=== PATIENT | female | born 1975 | race Caucasian/White ===

== ENCOUNTER → 2016-07-12 | Outpatient (CLI) | payer BC, OTHER | END | disposition home or self-care (01) | CPT/HCPCS: 97804 ==

== ENCOUNTER → 2016-07-28 | Outpatient (CLI) | payer BC, OTHER ==
[2016-07-28 16:10] VITALS: BP 149/87; PULSE 88; RESP 16; TEMP 98.4; BMI 44.5
--- NOTE | 2016-08-08 13:27 | P.PN ---
Progress Note - Text DATE OF SERVICE: 07/28/2016 CHIEF COMPLAINT: Bariatric assessment. HISTORY OF PRESENT ILLNESS: Marci Singh is a very pleasant 41-year-old female who presents to the bariatric program initially in April 2016. She has undergone a complete bariatric assessment whereby she has completed a psych assessment and was clear for understanding the rigors of bariatric surgery. Separately she comes in with severe gastroesophageal reflux disease for which she is looking for surgical alternatives. She reports a personal history of multiple DVTs of blood clots. She is not; however, on blood thinner. Main concerns also include having a previous ventral hernia as well as a hysterectomy. Her main concerns at this time includes getting a Jorden-en-Y gastric bypass. At a height of 5 feet 4 inches, her ideal body weight 144 pounds. Her highest weight has been 265 pounds. Today she comes in weighing 259 pounds. She maintained a 6-pound weight loss in possibly 3 going on 4 months. Her body mass index has reduced from 44.9 down to 43.9. PAST MEDICAL HISTORY: 1. Bilateral deep venous thrombosis. 2. Hypertension. 3. Osteoarthritis of the bilateral hips. 4. Morbid obesity. 5. Postoperative nausea and vomiting. PAST SURGICAL HISTORY: 1. Hysterectomy. 2. Bladder suspension. 3. Left elbow surgery. 4. Tonsillectomy. MEDICATIONS: 1. Omeprazole. 2. Adderall. ALLERGIES: CODEINE. SOCIAL HISTORY: Former tobacco use. FAMILY HISTORY: Denies any esophageal, stomach cancer. REVIEW OF SYSTEMS: CONSTITUTIONAL: [place] body weight of 144 pounds. Highest weight of 278 pounds. She is at present 115 pounds overweight. Body mass index is reduced from 47.8 down to 44.5. HEENT: No troubles with vision or hearing. No reports of dysphagia. ENDOCRINE: No reports of active diabetes or thyroid disorder. RESPIRATORY: She denies any dyspnea on exertion. No reports of asthma. She has narcolepsy including potential sleep apnea syndrome. CARDIOVASCULAR: She has hypertension. No reports of chest pain or heart attack. GASTROINTESTINAL: No reports of dumping syndrome. No reports of fatty food intolerance. Has severe gastroesophageal reflux disease. MUSCULOSKELETAL: Has osteoarthritis of the hips. Also no reports of bilateral lower extremity edema. NEURO: No reports of stroke or seizure disorders. PSYCH: No reports of depression or suicidal ideation. HEMATOLOGIC: Has a personal history of bilateral DVTs in the past. No reports of easy bruising or bleeding. PHYSICAL EXAM: VITAL SIGNS: 98.4, 88, 16, 149/87; 5 feet 4 inches; 259 pounds. Body mass index 44.9. GENERAL: Well-developed female in no acute distress. HEENT: No scleral icterus. Extraocular movements grossly intact. Moist buccal mucosa. NECK: Supple without lymphadenopathy. CHEST: Nonlabored respirations. Equal bilateral excursions. CARDIOVASCULAR: Regular rate and rhythm. ABDOMEN: Soft protuberant, soft, nontender, nondistended. MUSCULOSKELETAL: No clubbing, cyanosis, or edema. NEURO: No focal or lateralizing signs. Cranial nerves II through XII grossly within normal limits. PSYCH: Appropriate affect. Alert and oriented to person, place, and time. ASSESSMENT: 1. Morbid obesity due to excess calories. 2. Body mass index reduced from 47.8 down to 44.6. 3. Dietary surveillance and counseling. 4. Gastroesophageal reflux disease. 5. Hypertensive heart disease without heart failure. 6. Osteoarthritis of the bilateral hips. 7. Personal history of bilateral deep venous thromboses. 8. Narcolepsy with sleep syndrome. 9. Obstructive sleep apnea. 10. Hypertriglyceridemia. 11. Hypercholesterolemia. 12. Vitamin D deficiency. PLAN: 1. An 8-page bariatric consent form was reviewed in detail regarding benefits and risks of Jorden-en-Y gastric bypass. 2. Increased risk for blood clots including DVTs were also reviewed. She will likely need post discharge Lovenox and alternative as well. 3. She reports not seeing a admissions clinician for which inpatient consultation may be a benefit. 4. Antibiotic prophylaxis. 5. Inpatient hospitalization anticipated for approximately 2 nights. 6. Dietary guidelines including a 2-week high protein, low caloric diet was also reviewed in detail for which she demonstrated an understanding.
== END | disposition home or self-care (01) ==
LOC: BARWHC3 14:57
PROVIDERS: ATTEND Surgery Plastic and Reconstructive Surgery
DX: Z01.818 Encounter for other preprocedural examination (principal); E66.01 Morbid (severe) obesity due to excess calories; Z79.899 Other long term (current) drug therapy; Z88.6 Allergy status to analgesic agent; Z72.0 Tobacco use; K21.9 Gastro-esophageal reflux disease without esophagitis; Z68.41 Body mass index [BMI] 40.0-44.9, adult; I11.9 Hypertensive heart disease without heart failure; M16.0 Bilateral primary osteoarthritis of hip; G47.8 Other sleep disorders; G47.33 Obstructive sleep apnea (adult) (pediatric); E78.1 Pure hyperglyceridemia; E78.00 Pure hypercholesterolemia, unspecified; E55.9 Vitamin D deficiency, unspecified; Z86.718 Personal history of other venous thrombosis and embolism
CPT/HCPCS: 99211

== ENCOUNTER → 2016-07-29 | Outpatient (CLI) | payer BC, OTHER ==
[2016-07-29 16:34] LABS: Basophils # (A) 0.1 k/uL (0-0.2); Basophils % (A) 1 %; CH 28.3; CHCM 33.3; Eosinophils # (A) 0.4 k/uL (0-0.7); Eosinophils % (A) 4 %; HCT 44.1 % (34.0-46.0); HDW 2.77; Luc # (Auto) 0.26; Luc % (Auto) 3; Lymphocytes # (A) 1.4 k/uL (1.0-4.8); Lymphocytes % (A) 14 %; MCHC 31.7 g/dL (31.0-37.0); MCV 85.4 fL (80.0-100.0); Mean Platelet Volume 6.8; Monocytes # (A) 0.6 k/uL (0-1.0); Monocytes % (A) 5 %; Neutrophils # (A) 7.6 k/uL (1.3-7.7); Neutrophils % (A) 73 %; RBC 5.17 m/uL (3.80-5.40); RDW 13.6 % (11.5-15.5); WBC 10.3 k/uL (3.8-10.6); WBC (Perox) 11.06
[2016-07-29 16:50] LABS: ALT 33 U/L (9-52); AST 22 U/L (14-36); Alkaline Phosphatase 88 U/L (38-126); Anion Gap 12 mmol/L; Blood Urea Nitrogen 14 mg/dL (7-17); Calcium 9.2 mg/dL (8.4-10.2); Carbon Dioxide 27 mmol/L (22-30); Chloride 103 mmol/L (98-107); Glucose 88 mg/dL (74-99); Non-African American GFR(MDRD) >60 (>60 ml/min/1.73 sqM); Sodium 142 mmol/L (137-145); Total Bilirubin 0.9 mg/dL (0.2-1.3)
== END | disposition home or self-care (01) ==
LOC: LABWHC1 16:06
PROVIDERS: ATTEND Surgery Plastic and Reconstructive Surgery
DX: Z01.812 Encounter for preprocedural laboratory examination (principal)
CPT/HCPCS: 36415; 80053; 85025

== ENCOUNTER 2016-08-16 09:08 | Inpatient (IN) | payer BC, OTHER ==
[2016-08-10 11:00] VITALS: BMI 43.4
--- NOTE | 2016-08-15 14:41 | P.GSHP ---
History of Present Illness H&P Date: 08/16/16 DATE OF SERVICE: 08/16/2016 CHIEF COMPLAINT: Bariatric assessment. HISTORY OF PRESENT ILLNESS: Marci Singh is a very pleasant 41-year-old female who presents to the bariatric program initially in April 2016. She has undergone a complete bariatric assessment whereby she has completed a psych assessment and was clear for understanding the rigors of bariatric surgery. Separately she comes in with severe gastroesophageal reflux disease for which she is looking for surgical alternatives. She reports a personal history of multiple DVTs of blood clots. She is not; however, on blood thinner. Main concerns also include having a previous ventral hernia as well as a hysterectomy. Her main concerns at this time includes getting a Jorden-en-Y gastric bypass. At a height of 5 feet 4 inches, her ideal body weight 144 pounds. Her highest weight has been 265 pounds. Today she comes in weighing 259 pounds. She maintained a 6-pound weight loss in possibly 3 going on 4 months. Her body mass index has reduced from 44.9 down to 43.9. PAST MEDICAL HISTORY: 1. Bilateral deep venous thrombosis. 2. Hypertension. 3. Osteoarthritis of the bilateral hips. 4. Morbid obesity. 5. Postoperative nausea and vomiting. PAST SURGICAL HISTORY: 1. Hysterectomy. 2. Bladder suspension. 3. Left elbow surgery. 4. Tonsillectomy. MEDICATIONS: 1. Omeprazole. 2. Adderall. ALLERGIES: CODEINE. SOCIAL HISTORY: Former tobacco use. FAMILY HISTORY: Denies any esophageal, stomach cancer. REVIEW OF SYSTEMS: CONSTITUTIONAL: [place] body weight of 144 pounds. Highest weight of 278 pounds. She is at present 115 pounds overweight. Body mass index is reduced from 47.8 down to 44.5. HEENT: No troubles with vision or hearing. No reports of dysphagia. ENDOCRINE: No reports of active diabetes or thyroid disorder. RESPIRATORY: She denies any dyspnea on exertion. No reports of asthma. She has narcolepsy including potential sleep apnea syndrome. CARDIOVASCULAR: She has hypertension. No reports of chest pain or heart attack. GASTROINTESTINAL: No reports of dumping syndrome. No reports of fatty food intolerance. Has severe gastroesophageal reflux disease. MUSCULOSKELETAL: Has osteoarthritis of the hips. Also no reports of bilateral lower extremity edema. NEURO: No reports of stroke or seizure disorders. PSYCH: No reports of depression or suicidal ideation. HEMATOLOGIC: Has a personal history of bilateral DVTs in the past. No reports of easy bruising or bleeding. PHYSICAL EXAM: VITAL SIGNS: 98.4, 88, 16, 149/87; 5 feet 4 inches; 259 pounds. Body mass index 44.9. GENERAL: Well-developed female in no acute distress. HEENT: No scleral icterus. Extraocular movements grossly intact. Moist buccal mucosa. NECK: Supple without lymphadenopathy. CHEST: Nonlabored respirations. Equal bilateral excursions. CARDIOVASCULAR: Regular rate and rhythm. ABDOMEN: Soft protuberant, soft, nontender, nondistended. MUSCULOSKELETAL: No clubbing, cyanosis, or edema. NEURO: No focal or lateralizing signs. Cranial nerves II through XII grossly within normal limits. PSYCH: Appropriate affect. Alert and oriented to person, place, and time. ASSESSMENT: 1. Morbid obesity due to excess calories. 2. Body mass index reduced from 47.8 down to 44.6. 3. Dietary surveillance and counseling. 4. Gastroesophageal reflux disease. 5. Hypertensive heart disease without heart failure. 6. Osteoarthritis of the bilateral hips. 7. Personal history of bilateral deep venous thromboses. 8. Narcolepsy with sleep syndrome. 9. Obstructive sleep apnea. 10. Hypertriglyceridemia. 11. Hypercholesterolemia. 12. Vitamin D deficiency. PLAN: 1. An 8-page bariatric consent form was reviewed in detail regarding benefits and risks of Jorden-en-Y gastric bypass. 2. Increased risk for blood clots including DVTs were also reviewed. She will likely need post discharge Lovenox and alternative as well. 3. She reports not seeing a bookkeepers supervisor for which inpatient consultation may be a benefit. 4. Antibiotic prophylaxis. 5. Inpatient hospitalization anticipated for approximately 2 nights. 6. Dietary guidelines including a 2-week high protein, low caloric diet was also reviewed in detail for which she demonstrated an understanding. Past Medical History Past Medical History: Deep Vein Thrombosis (DVT), Hyperlipidemia, Hypertension, Neurologic Disorder, Sleep Apnea/CPAP/BIPAP Additional Past Medical History / Comment(s): migraines, no Rx for BP, no cpap used, "live antibodies in my blood" History of Any Multi-Drug Resistant Organisms: None Reported Past Surgical History: Bladder Surgery, Hernia Repair, Hysterectomy, Orthopedic Surgery, Tonsillectomy Additional Past Surgical History / Comment(s): left elbow surgery x 2. EGD Past Anesthesia/Blood Transfusion Reactions: Motion Sickness, Postoperative Nausea & Vomiting (PONV) Additional Past Anesthesia/Blood Transfusion Reaction / Comment(s): pt told on previous surgery "live antibodies in my blood" Past Psychological History: No Psychological Hx Reported Smoking Status: Former smoker Past Alcohol Use History: Occasional Additional Past Alcohol Use History / Comment(s): quit smoking 2003, smoked since 15, <1 PPD Past Drug Use History: None Reported - Past Family History Mother Family Medical History: No Reported History Medications and Allergies Home Medications Medication Instructions Recorded Confirmed Type No Known Home Medications [No 08/10/16 08/10/16 History Known Home Medications] Allergies Allergy/AdvReac Type Severity Reaction Status Date / Time codeine Allergy Rash/Hives Verified 08/10/16 10:52 adhesive tape AdvReac torn skin Verified 08/10/16 10:54
[~2016-08-16 09:08] MED LIST: ACETAMINOPHEN IV (For NPO) 1,000 MG in EMPTY BAG 1 BAG IVPB ONE; BUPIVACAINE LIPOSOME/PF 1.3% 20 ML, BUPIVACAIN-EPI 0.5%-1:200,000 25 ML, SODIUM CHLORID... MISCELLANE ONE; CHLORHEXIDINE GLUCONATE 15 ML CUP MUCOUS MEM ONE; DEXAMETHASONE SOD PHOSPHATE 10 MG/ML 1 ML VIAL IV ONE; ENOXAPARIN 40 MG/0.4 ML SYRINGE SQ STA; HYDROmorphone 1 MG/ML 1 ML SYRINGE IVP PRN; MIDAZOLAM 2 MG/2 ML VIAL IV PRN; PANTOPRAZOLE 40 MG/10 ML VIAL IV STA; SCOPOLAMINE 1.5MG/72HR PATCH TRANSDERM ONE; ceFAZolin 2 GM in SODIUM CHLORIDE 0.9% 100 ML IVPB ONE
[2016-08-16] MEDS ORDERED: LIDOCAINE 1% 20 ML VIAL (10MG/ML) FOR IV START INTRADERMA ONE (09:45)
[2016-08-16] MEDS: LACTATED RINGERS 1,000 ML IV SCH ×4 (09:45→23:00)
[2016-08-16] MEDS: ONDANSETRON 4 MG/2 ML VIAL IVP ONE ×2 (10:06→15:23)
[2016-08-16] MEDS ORDERED: MIDAZOLAM 2 MG/2 ML VIAL ONE (12:36)
[2016-08-16] MEDS ORDERED: SUCCINYLCHOLINE CHLORIDE 100 MG/5 ML SYR IV ONE (12:36)
[2016-08-16] MEDS ORDERED: ROCURONIUM BROMIDE 10 MG/ML 10 ML VIAL IV ONE (12:36)
[2016-08-16] MEDS ORDERED: GLYCOPYRROLATE 0.2 MG/ML 2 ML VIAL ONE (12:36)
[2016-08-16] MEDS ORDERED: LIDOCAINE 1% INJ 10MG/ML (20 ML MDV) ONE (12:36)
[2016-08-16] MEDS ORDERED: ePHEDrine 50 MG/ML 1 ML AMP ONE (12:36)
[2016-08-16] MEDS ORDERED: fentaNYL (PF) 50 MCG/ML 2 ML AMP ONE (12:36)
[2016-08-16] MEDS ORDERED: NEOSTIGMINE 1 MG/ML 10 ML VIAL ONE (12:36)
[2016-08-16] MEDS ORDERED: PROPOFOL 10 MG/ML 20 ML VIAL IV ONE (12:36)
[2016-08-16] MEDS ORDERED: LACTATED RINGERS 1,000 ML IV ONE ×2 (13:48→15:02)
--- NOTE | 2016-08-16 14:54 | P.PCN ---
Date of Procedure: 08/16/16 Preoperative Diagnosis: Morbid obesity Postoperative Diagnosis: Same Procedure(s) Performed: Laparoscopic gastric bypass, 125 cm, lysis of adhesions, intraoperative esophagogastrojejunoscopy Anesthesia: GETA, local Surgeon: Meera Suarez Estimated Blood Loss (ml): 25 Pathology: none sent Condition: stable Disposition: floor Operative Findings: 21 cm thoracic length, 125 cm Jorden limb, 25 mm Orvil, negative leak test, 3 purple loads 60s
[2016-08-16] MEDS ORDERED: NALOXONE 0.4 MG/ML 1 ML VIAL IV PRN (14:56)
[2016-08-16] MEDS ORDERED: diphenhydrAMINE 50 MG/ML 1 ML VIAL IVP PRN (14:56)
[2016-08-16] MEDS ORDERED: ONDANSETRON 4 MG/2 ML VIAL IVP PRN (14:56)
[2016-08-16] MEDS ORDERED: SIMETHICONE 40 MG/0.6 ML DROPS 2,000 MG/30 ML BOTTLE PO PRN (14:56)
[2016-08-16] MEDS ORDERED: HYOSCYAMINE ORAL DROPS 1.875 MG/15 ML BOTTLE PO PRN (14:56)
[2016-08-16] MEDS ORDERED: ACETAMINOPHEN IV (For NPO) 1,000 MG in EMPTY BAG 1 BAG IVPB ONE (15:15)
[2016-08-16] MEDS: ALBUTEROL NEBULIZED 2.5 MG/3 ML INHALATION SCH ×2 (16:26→20:18)
--- NOTE | 2016-08-16 17:06 | P.PN ---
Progress Note - Text She is complaining of pain. In the past, she was able to tolerated Morphine. Pain medications re-written.
[2016-08-16] MEDS: MORPHINE SULFATE 4 MG/ML SYRINGE IVP PRN ×2 (17:25→21:06)
[2016-08-16] MEDS: 0.9% NACL WITH KCL 20 MEQ/L 1,000 ML IV SCH ×2 (17:26→23:01)
[2016-08-16] MEDS: ACETAMINOPHEN ORAL SUSP (PEDS) 3,840 MG/120 ML BOTTLE PO SCH ×2 (17:51→22:58)
--- NOTE | 2016-08-16 20:34 | US ---
EXAMINATION TYPE: US venous doppler duplex LE BI DATE OF EXAM: 08/16/2016 5:58 PM COMPARISON: NONE CLINICAL HISTORY: LE swelling. History of blood clot in right leg per patient, not currently taking a ny blood thinners SIDE PERFORMED: Bilateral VESSELS IMAGED: External Iliac Vein (EIV) Common Femoral Vein Deep Femoral Vein Greater Saphenous Vein * Femoral Vein Popliteal Vein Small Saphenous Vein * Proximal Calf Veins (* superficial vessels) TECHNOLOGIST IMPRESSION: Right Leg: Negative for DVT Left Leg: Negative for DVT IMPRESSION: Normal exam. No evidence of deep venous thrombosis in both legs.
--- NOTE | 2016-08-16 23:50 | P.CONS ---
History of Present Illness - Reason for Consult Consult date: 08/16/16 Possible h/o DVTs - History of Present Illness The pt is a 41yr old WF, admitted electively for weight loss surgery. She underwent a laparoscopic gastric bypass, with intraoperative esophagogastrojejunostomy. The consult was placed as apparently the patient gave a history of " blood clots" in both legs and in the arm. Records from multiple previous visits were reviewed. The patient's mother confirmed that the patient had been to the ER in 11/07, after sustaining trauma to the left arm. She apparently had a big bruise at the time but subsequently resolved. In 05/11, she had another fall and hurt her legs with the bruising again noted bilaterally on her visit to the ER. The patient and her mother are describing these bruises as "clots". Review of electronic health record and confirm that the patient has never had any venous Doppler done of her upper or lower extremities during these visits. It is also confirmed with the patient and her mother, that she never had any venous Doppler done. Review of Systems Constitutional: Denies chills, Denies fever Eyes: denies blurred vision, denies pain Ears: deny: decreased hearing, ear discharge, earache, tinnitus Ears, nose, mouth and throat: Denies headache, Denies sore throat Cardiovascular: Denies chest pain, Denies shortness of breath Respiratory: Denies cough Gastrointestinal: Reports abdominal pain Genitourinary: Denies dysuria, Denies hematuria Musculoskeletal: Reports as per HPI (Prior history of accidental trauma to the upper extremities and the lower extremities.) Integumentary: Reports as per HPI (History of large upper and lower extremity bruising due to trauma. The patient appears to be reporting these ' clot') Neurological: Denies numbness, Denies weakness Psychiatric: Denies anxiety, Denies depression Endocrine: Reports weight change Hematologic/Lymphatic: Reports as per HPI Past Medical History Past Medical History: Deep Vein Thrombosis (DVT), Hyperlipidemia, Hypertension, Neurologic Disorder, Sleep Apnea/CPAP/BIPAP Additional Past Medical History / Comment(s): migraines, no Rx for BP, no cpap used, "live antibodies in my blood" History of Any Multi-Drug Resistant Organisms: None Reported Past Surgical History: Bladder Surgery, Hernia Repair, Hysterectomy, Orthopedic Surgery, Tonsillectomy Additional Past Surgical History / Comment(s): left elbow surgery x 2. EGD Past Anesthesia/Blood Transfusion Reactions: Motion Sickness, Postoperative Nausea & Vomiting (PONV) Additional Past Anesthesia/Blood Transfusion Reaction / Comm: pt told on previous surgery "live antibodies in my blood" Past Psychological History: No Psychological Hx Reported Smoking Status: Former smoker Past Alcohol Use History: Occasional Additional Past Alcohol Use History / Comment(s): quit smoking 2003, smoked since 15, <1 PPD Past Drug Use History: None Reported - Past Family History Mother Family Medical History: No Reported History Medications and Allergies Home Medications Medication Instructions Recorded Confirmed Type Dextroamphetamine/Amphetamine 20 mg PO DAILY 08/16/16 08/16/16 History [Adderall] Omeprazole [PriLOSEC] 40 mg PO DAILY 08/16/16 08/16/16 History Allergies Allergy/AdvReac Type Severity Reaction Status Date / Time codeine Allergy Rash/Hives Verified 08/16/16 09:36 adhesive tape AdvReac torn skin Verified 08/16/16 09:36 Physical Exam Vitals: Vital Signs Temp Pulse Pulse Pulse Resp BP BP 08/16/16 16:47 88 08/16/16 16:27 76 08/16/16 16:00 82 16 135/84 08/16/16 15:45 80 16 143/83 08/16/16 15:30 81 16 140/80 08/16/16 15:15 84 16 147/80 08/16/16 15:03 98.6 F 87 18 142/86 08/16/16 09:40 97.9 F 70 16 138/77 Pulse Ox 08/16/16 16:47 08/16/16 16:27 93 L 08/16/16 16:00 95 08/16/16 15:45 95 08/16/16 15:30 98 08/16/16 15:15 99 08/16/16 15:03 97 08/16/16 09:40 99 Intake and Output 08/16/16 08/16/16 08/16/16 06:59 14:59 22:59 Intake Total 2195 350 Output Total 460 Balance 1735 350 Intake: IV 2195 350 Output: Urine 435 Estimated Blood Loss 25 Other: Weight 114.2 kg Patient Weight 08/17/16 06:59 Weight 114.2 kg - Constitutional General appearance: mild distress - EENT Eyes: abnormal pupil, PERRLA - Neck Neck: no lymphadenopathy - Respiratory Respiratory: bilateral: CTA - Cardiovascular Rhythm: regular Heart sounds: normal: S1, S2 - Gastrointestinal General gastrointestinal: normal bowel sounds, soft - Integumentary Integumentary: normal - Neurologic Neurologic: CNII-XII intact - Musculoskeletal Musculoskeletal: strength equal bilaterally Results Results: ER reports from our previous visits, as well as imaging done at that time reviewed Assessment and Plan Plan: On the consult, as the patient had given a history of DVTs. On initial questioning she stated that she had a clot in the arm, and in both legs. On further investigation does confirm that she was actually referring to traumatic bruising. The patient has never had a venous Doppler done. Thus there is no actual history of DVTs. I will check a venous Doppler for a baseline. Case was discussed with the Dr. Suarez. The patient can be anticoagulated per her standard protocol.
[2016-08-17] MEDS: MORPHINE SULFATE 4 MG/ML SYRINGE IVP PRN ×2 (01:12→05:44)
[2016-08-17] MEDS: ceFAZolin 2 GM in SODIUM CHLORIDE 0.9% 100 ML IVPB SCH ×2 (01:14→08:37)
[2016-08-17] MEDS: ACETAMINOPHEN ORAL SUSP (PEDS) 3,840 MG/120 ML BOTTLE PO SCH ×4 (04:12→21:04)
[2016-08-17] MEDS: 0.9% NACL WITH KCL 20 MEQ/L 1,000 ML IV SCH (04:13)
[2016-08-17] MEDS: LACTATED RINGERS 1,000 ML IV SCH ×4 (05:50→23:46)
[2016-08-17] MEDS: 1: MVI, ADULT NO.4 WITH VIT K 10 ML, THIAMINE 100 MG, FOLIC ACID 1 MG, POTASSIUM CHLORID IV SCH ×12 (06:29→16:30)
[2016-08-17] MEDS ORDERED: SODIUM CHLORIDE 0.9% 1,000 ML BAG ONE (06:29)
[2016-08-17 07:37] LABS: Basophils % (A) 0 %; CH 28.3; CHCM 32.7; Eosinophils % (A) 0 %; HCT 40.8 % (34.0-46.0); HGB 12.9 gm/dL (11.4-16.0); Luc # (Auto) 0.18; Luc % (Auto) 1; Lymphocytes # (A) 1.3 k/uL (1.0-4.8); Lymphocytes % (A) 9 %; MCH 27.5 pg (25.0-35.0); MCHC 31.7 g/dL (31.0-37.0); MCV 86.9 fL (80.0-100.0); Mean Platelet Volume 6.8; Monocytes # (A) 0.6 k/uL (0-1.0); Monocytes % (A) 4 %; Neutrophils # (A) 12.7 k/uL (1.3-7.7); Neutrophils % (A) 86 %; RDW 13.9 % (11.5-15.5); WBC 14.7 k/uL (3.8-10.6); WBC (Perox) 15.15
[2016-08-17 07:52] LABS: Anion Gap 13 mmol/L; Blood Urea Nitrogen 8 mg/dL (7-17); Calcium 8.7 mg/dL (8.4-10.2); Carbon Dioxide 26 mmol/L (22-30); Chloride 103 mmol/L (98-107); Magnesium 1.8 mg/dL (1.6-2.3); Non-African American GFR(MDRD) >60 (>60 ml/min/1.73 sqM); Phosphorous 3.2 mg/dL (2.5-4.5); Potassium 3.9 mmol/L (3.5-5.1); Sodium 142 mmol/L (137-145)
[2016-08-17] MEDS: ALBUTEROL NEBULIZED 2.5 MG/3 ML INHALATION SCH ×4 (08:03→19:54)
[2016-08-17] MEDS: ENOXAPARIN 40 MG/0.4 ML SYRINGE SQ SCH ×2 (08:37→21:04)
[2016-08-17] MEDS: HYDROcodone/APAP 15 ML SOLUTION PO PRN ×3 (08:37→19:44)
[2016-08-17] MEDS: PANTOPRAZOLE 40 MG/10 ML VIAL IV SCH (08:37)
--- NOTE | 2016-08-17 09:35 | P.PN ---
Subjective 41-year-old female being seen on rounds this morning patient states that she did get up and ambulate in the bellamy. Patient does report having a nausea sensation. Patient is postop Laparoscopic gastric bypass, 125 cm, lysis of adhesions, intraoperative esophagogastrojejunoscopy for weight loss for morbid obesity done on August 16 Objective - Vital Signs Vital signs: Vital Signs Temp 96.3 F L 08/17/16 07:52 Pulse 91 08/17/16 08:15 Resp 16 08/17/16 07:52 BP 126/71 08/17/16 07:52 Pulse Ox 91 L 08/17/16 09:02 Intake & Output 08/16/16 08/17/16 08/17/16 18:59 06:59 18:59 Intake Total 2545 1800 Output Total 460 650 300 Balance 5 1150 -300 Weight 114.2 kg Intake: IV 2545 1800 0.9% NaCl with KCl 20 Meq 1800 /l 1,000 ml @ 150 mls/hr IV .[id number] SHELLY Rx#: [id number] Output: Urine 435 650 300 Estimated Blood Loss 25 Other: Voiding Method Toilet # Voids 300 - Exam GENERAL APPEARANCE: 41-year-old female patient is alert, oriented, Talkative appears in no acute distress no shortness of breath no chest pain VITAL SIGNS: Reviewed HEENT: Head is normocephalic and atraumatic. Pupils are equal and reactive. The nares are patent. Oropharynx is clear without lesions. NECK: Supple without lymphadenopathy. Traches midline. HEART: S1, S2. Regular rate and rhythm. No murmur noted denying chest pain LUNGS: No crackles or wheezes are heard. Adequate air movement bilaterally room air sats are 91% needs encouragement to use the incentive spirometer states can achieve thousand ABDOMEN: Soft, nontender, nondistended with good bowel sounds. No peritoneal signs. No palpable organomegaly or masses. No redness at surgical sites no stool no difficulty in urinating does report a sensation of nausea no active emesis EXTREMITIES: Normal skin color and turgor. No cyanosis, rash, ulceration, clubbing or edema. Radial pedal pulses are 2/4 bilaterally. NEUROLOGICAL: No focal deficits. Strength and sensation are grossly intact. - Labs CBC & Chem 7: 08/17/16 06:51 08/17/16 06:51 Labs: Abnormal Lab Results - Last 24 Hours (Table) 08/17/16 Range/Units 06:51 WBC 14.7 H (3.8-10.6) k/uL Neutrophils # 12.7 H (1.3-7.7) k/uL Assessment and Plan Plan: Impression Status post done on August 16 Laparoscopic gastric bypass, 125 cm, lysis of adhesions, intraoperative esophagogastrojejunoscopy for morbid obesity Morbid obesity History of sleep apnea with no CPAP therapy Per history patient reports history of DVTs with a negative Doppler bilateral lower extremities no evidence of a DVT this admission History of migraines Plan Continue postop surgical care Encourage the use of the incentive spirometer DVT and GI prophylaxis Pain control Continue bariatric clear liquid diet PT OT eval The above dictated assessment and findings were discussed with Dr. Suarez Impression and the plan of care have been dictated as directed. Hellen Urena nurse practitioner acting as a scribe for Dr. Suarez
--- NOTE | 2016-08-17 19:32 | P.PN ---
Progress Note - Text Patient seen and evaluated this evening. Her mother is at bedside. She has expected left upper abdominal pain. Dressing is changed and clean, dry and intact. She has had no adverse reaction from her [place] Elixir. Discharge care plan reviewed. Plan for discharge tomorrow with follow-up in the bariatric center in 48 hrs.
[2016-08-17] MEDS: MAGNESIUM SULFATE-D5W PMX 1 GM in DEXTROSE/WATER 1 100ML.BAG IVPB SCH ×2 (19:50→21:03)
[2016-08-18] MEDS: HYDROcodone/APAP 15 ML SOLUTION PO PRN ×4 (00:52→15:51)
[2016-08-18] MEDS: LACTATED RINGERS 1,000 ML IV SCH ×3 (01:58→15:08)
[2016-08-18] MEDS: ACETAMINOPHEN ORAL SUSP (PEDS) 3,840 MG/120 ML BOTTLE PO SCH ×3 (03:22→14:09)
[2016-08-18] MEDS ORDERED: SODIUM CHLORIDE 0.9% 1,000 ML BAG ONE ×2 (05:26)
[2016-08-18] MEDS: 1: MVI, ADULT NO.4 WITH VIT K 10 ML, THIAMINE 100 MG, FOLIC ACID 1 MG, POTASSIUM CHLORID IV SCH ×18 (05:26→15:09)
[2016-08-18 07:28] LABS: Basophils % (A) 0 %; CH 28.9; CHCM 33.3; Eosinophils # (A) 0.2 k/uL (0-0.7); Eosinophils % (A) 3 %; HCT 36.4 % (34.0-46.0); HDW 2.78; HGB 11.9 gm/dL (11.4-16.0); Luc # (Auto) 0.12; Luc % (Auto) 1; Lymphocytes # (A) 1.2 k/uL (1.0-4.8); Lymphocytes % (A) 13 %; MCH 28.6 pg (25.0-35.0); MCHC 32.7 g/dL (31.0-37.0); MCV 87.4 fL (80.0-100.0); Mean Platelet Volume 7.8; Monocytes # (A) 0.5 k/uL (0-1.0); Monocytes % (A) 5 %; Neutrophils # (A) 7.3 k/uL (1.3-7.7); Neutrophils % (A) 78 %; RBC 4.17 m/uL (3.80-5.40); RDW 14.2 % (11.5-15.5); WBC 9.4 k/uL (3.8-10.6); WBC (Perox) 10.05
[2016-08-18] MEDS: ENOXAPARIN 40 MG/0.4 ML SYRINGE SQ SCH (07:28)
[2016-08-18] MEDS: PANTOPRAZOLE 40 MG/10 ML VIAL IV SCH (07:28)
[2016-08-18] MEDS ORDERED: BISACODYL 5 MG TABLET.DR PO PRN (08:00)
[2016-08-18] MEDS: ALBUTEROL NEBULIZED 2.5 MG/3 ML INHALATION SCH ×3 (08:22→16:25)
--- NOTE | 2016-08-18 12:13 | P.PN ---
Subjective 41-year-old female being seen on rounds this morning. Patient states that she has been up ambulating in the hallway. Patient states continues to have abdominal discomfort. Patient states has not belched or pass gas. Patient reports having a cramping abdominal sensation. This been no nausea vomiting. States urinating with no difficulty no shortness of breath or chest pain with activity postop Laparoscopic gastric bypass, 125 cm, lysis of adhesions, intraoperative esophagogastrojejunoscopy for weight loss for morbid obesity done on August 16 Objective - Vital Signs Vital signs: Vital Signs Temp 96.6 F L 08/18/16 07:00 Pulse 80 08/18/16 08:32 Resp 16 08/18/16 07:00 BP 131/87 08/18/16 07:00 Pulse Ox 97 08/18/16 07:00 Intake & Output 08/17/16 08/18/16 08/18/16 18:59 06:59 18:59 Intake Total 2661.2 1300 500 Output Total 300 Balance 2361.2 1300 500 Intake: IV 1300 Lactated Ringers 1,000 ml 500 @ 125 mls/hr IV .Q8H SHELLY Rx#:[id number] Mvi, Adult No.4 with Vit 800 K 10 ml Thiamine 100 mg Folic Acid 1 mg Potassium Chloride 20 meq In Sodium Chloride 0.9% 1, 000 ml @ 100 mls/hr IV . BY DURATION SHELLY Rx#: [id number] Intake, IV Titration 1021.2 Amount Mvi, Adult No.4 with Vit 1021.2 K 10 ml Thiamine 100 mg Folic Acid 1 mg Potassium Chloride 20 meq In Sodium Chloride 0.9% 1, 000 ml @ 100 mls/hr IV . BY DURATION SHELLY Rx#: [id number] Oral 1640 500 Output: Urine 300 Other: Voiding Method Toilet Toilet # Voids 2 2 - Exam GENERAL APPEARANCE: 41-year-old female patient is alert, oriented, resting in bed Talkative appears in no acute distress no shortness of breath no chest pain VITAL SIGNS: Reviewed HEENT: Head is normocephalic and atraumatic. Pupils are equal and reactive. The nares are patent. Oropharynx is clear without lesions. NECK: Supple without lymphadenopathy. Traches midline. HEART: S1, S2. Regular rate and rhythm. No murmur noted denying chest pain LUNGS: No crackles or wheezes are heard. Adequate air movement bilaterally room air sats are 91% needs encouragement to use the incentive spirometer states can achieve thousand ABDOMEN: Soft, nontender, nondistended with good bowel sounds. No peritoneal signs. No palpable organomegaly or masses. No redness or drainage at surgical sites dressing right lower quadrant surgical site dry. Patient reports there was increased drainage from the surgical site last evening no stool no difficulty in urinating does report a sensation of nausea no active emesis states is not passing any gas rectally or belching EXTREMITIES: Normal skin color and turgor. No cyanosis, rash, ulceration, clubbing or edema. Radial pedal pulses are 2/4 bilaterally. NEUROLOGICAL: No focal deficits. Strength and sensation are grossly intact. - Labs CBC & Chem 7: 08/18/16 06:33 08/17/16 06:51 Assessment and Plan Plan: Impression Status post done on August 16 Laparoscopic gastric bypass, 125 cm, lysis of adhesions, intraoperative esophagogastrojejunoscopy for morbid obesity Morbid obesity History of sleep apnea with no CPAP therapy Per history patient reports history of DVTs with a negative Doppler bilateral lower extremities no evidence of a DVT this admission History of migraines Plan Continue postop surgical care Encourage the use of the incentive spirometer DVT and GI prophylaxis Pain control Continue bariatric clear liquid diet Prepped for discharge The above dictated assessment and findings were discussed with Dr. Suarez Impression and the plan of care have been dictated as directed. Hellen Urena nurse practitioner acting as a scribe for Dr. Suarez
[2016-08-18 14:18] VITALS: BP 135/82; PULSE 100; RESP 17; TEMP 96.5
--- NOTE | 2016-08-18 15:42 | P.DS ---
Providers Date of admission: 08/16/16 09:08 Expected date of discharge: 08/18/16 Attending physician: Meera Suarez Consults: 08/16/16 14:42 Consult Physician Routine Consulting Provider: Mario Oconnell Consult Reason/Comments: Multiple DVTs Do you want consulting provider notified?: Yes Primary care physician: [facility] Course: 1. Morbid obesity due to excess calories. 2. Body mass index reduced from 47.8 down to 43.2. 3. Dietary surveillance and counseling. 4. Gastroesophageal reflux disease. 5. Hypertensive heart disease without heart failure. 6. Osteoarthritis of the bilateral hips. 7. Personal history of bilateral deep venous thromboses. 8. Narcolepsy with sleep syndrome. 9. Obstructive sleep apnea. 10. Hypertriglyceridemia. 11. Hypercholesterolemia. 12. Vitamin D deficiency. The patient is a 41-year-old female with history of morbid obesity. She completed the bariatric program. She elected for a gastric bypass. Postoperatively she was tolerating diet. Her pain was closely managed. She reported a questionable history of DVT whereby consultation with hematology was obtained. Prior to discharge she was stable. Discharge instructions were reviewed in detail with immediate follow-up in the bariatric center within 48- 72 hours. Pertinent Studies: Duplex ultrasound of the lower extremity negative for DVT Procedures: 1. Laparoscopic Jorden-en-Y gastric bypass 125 cm antegastric antecolic Jorden limb. 2. Laparoscopic lysis of adhesions over 45 minutes 3. Intraoperative esophagogastrojejunoscopy Patient Condition at Discharge: Stable Plan - Discharge Summary Discharge Medication List Calcium Citrate 1 tab PO DAILY 09/16/16 [History] Iron 1 tab PO DAILY 09/16/16 [History] Multivitamin [Multivitamins Adult Gummies] 1 tab PO DAILY 09/16/16 [History] Follow up Appointment(s)/Referral(s): Meera Suarez MD [STAFF PHYSICIAN] - 08/20/16 10:00 am (Bariatric center) Patient Instructions/Handouts: *Surgery [facility] - Scopalamine Patch Instructions, Nutrition after Bariatric Surgery (GEN), Jorden-en-Y Gastric Bypass (DC) Activity/Diet/Wound Care/Special Instructions: No lifting over 4 pounds in 4 weeks. Follow-up at the bariatric center. May sponge bath. Do not shower until cleared by surgeon. Dressings to be discontinued by surgeon in the office. Please crush medications if pill size is larger than an M&M or tic tac. Discharge Disposition: HOME SELF-CARE
--- NOTE | 2016-08-18 21:02 | P.OP ---
Date of Procedure: 08/16/16 Description of Procedure: SURGEON: BYRON DIAMOND MD APPRENTICE PLANT ATTENDANT: SATISH BRITO PREOPERATIVE DIAGNOSES: 1. Morbid obesity due to excess calories. 2. Body mass index reduced from 47.8 down to 44.6. 3. Dietary surveillance and counseling. 4. Gastroesophageal reflux disease. 5. Hypertensive heart disease without heart failure. 6. Osteoarthritis of the bilateral hips. 7. Vitamin D deficiency. 8. Narcolepsy with sleep syndrome. 9. Obstructive sleep apnea. 10. Hypertriglyceridemia. 11. Hypercholesterolemia. POSTOPERATIVE DIAGNOSES: 1. Morbid obesity due to excess calories. 2. Body mass index reduced from 47.8 down to 44.6. 3. Dietary surveillance and counseling. 4. Gastroesophageal reflux disease. 5. Hypertensive heart disease without heart failure. 6. Osteoarthritis of the bilateral hips. 7. Vitamin D deficiency. 8. Narcolepsy with sleep syndrome. 9. Obstructive sleep apnea. 10. Hypertriglyceridemia. 11. Hypercholesterolemia. OPERATION: 1. Laparoscopic Jorden-en-Y gastric bypass, 125 cm antecolic and gastric Jorden limb , with 25 mm EEA. 2. Laparoscopic lysis of adhesions over 30 minutes. 3. Intraoperative esophagogastrojejunoscopy. 4. Peritoneal block using Exparel. 5. Application of OptiFoam dressing. 6. Placement of quarter inch Zeus drain left upper quadrant incision. ANESTHESIA: 85 mL Exparel with sensorcaine with epinephrine and normal saline mixture. ESTIMATED BLOOD LOSS: 25 mL SPECIMENS REMOVED: None. COMPLICATIONS: None. INDICATIONS: Marci Singh is a very pleasant 41-year-old female who presents to the bariatric program initially in April 2016. She has undergone a complete bariatric assessment whereby she has completed a psych assessment and was clear for understanding the rigors of bariatric surgery. Separately she comes in with severe gastroesophageal reflux disease for which she is looking for surgical alternatives. Her other concerns also include having a previous ventral hernia as well as a hysterectomy. Her main concerns at this time includes getting a Jorden-en-Y gastric bypass to address her co-morbid conditions including hypertension, obstructive sleep apnea, and diffuse osteoarthritis. At a height of 5 feet 4 inches, her ideal body weight is 144 pounds. Her highest weight is 265 pounds. Today she comes in weighing 251 pounds. She maintained a 14-pound weight loss since her start of the program. Her body mass index has reduced from 44.9 down to 43.2. All surgical options for morbid obesity had been described using the [place] bariatric surgery collaborative comorbidity resolution including complication risk score. The patient had elected for a gastric bypass with possible sleeve gastrectomy. A second-generation bariatric consent form was described in detail including the possibility of but not limited to protein malnutrition, infection , leaks, gastrojejunal stricture, venous thrombosis for which she demonstrated understanding. Benefits and risks of the procedure were described at length. Informed consent was obtained. DESCRIPTION: The patient was brought into the operating room theater. She was placed on a split leg table. Preoperatively she had received Lovenox subcutaneously for DVT prophylaxis. Additionally she had undergone Peridex oral solution as an oral decontaminant. After general induction, the abdomen was prepped and draped in standard sterile fashion. A Medley catheter was placed. Ioban draping was placed along the abdomen. A 0 10 mm laparoscopic trocar entry was performed along the epigastrium approximately 15 cm distal to the xiphoid process. Her xiphoid to her umbilicus was 21 cm for her height of 5 foot 4 inches. Diagnostic laparoscopy demonstrated no injury to bowel, viscera, or mesentery. The liver surface was unremarkable. No injury had occurred to the small bowel or viscera. Along the hiatus no evidence of prominent hiatal hernia was encountered. Severe pelvic adhesions were identified of the greater omentum to the abdominal wall from previous hysterectomy and ventral hernia. At the left upper quadrant 2- 12 mm trocars were placed 1 along the left midclavicular line and another along the anterior axillary line. In a mirror-falcon fashion, 2 - 12 mm trocars were also placed along the right upper abdomen in a mirror-falcon fashion. Another 12 mm port was placed along the right lower quadrant to address her adhesions. For approximate 30 minutes, the adhesions of the lower pelvis was lysed using Sonicision including blunt dissection and [place]. All adhesions were addressed to perform her gastric bypass. The transverse mesocolon, including the omentum, was reflected over the stomach. The ligament of Treitz was identified and measured 60 cm antegrade. The jejunum was divided at the 60 cm point after using metered graspers for measurement. The biliopancreatic limb was held in place by the tv production assistant. The Jorden limb was then measured 125 cm distally to avoid tension along the proposed gastrojejunal anastomosis. The Jorden limb was marked using a Dixon drain and 2-0 silk on an Endo Stitch along its proximal staple edge. At 125 cm along the anti-mesenteric border of the Jorden limb, a jejunojejunostomy was proposed whereby enterotomies were created along the biliopancreatic limb including the Jorden limb using a suction Bovie cautery. The enterotomies were widened using a [place]. A bidirectional fire was performed whereby from the right side a 45 mm walker load was fired. From the left side a separate 45 mm firing had occurred, creating a 90 mm jejunojejunostomy. The defect was then closed using a 60 mm walker load. The jejunojejunostomy was found to be hemostatic. Attention was now brought to the creation of the gastrojejunostomy. Placement of a medium size Abad liver retractor was used to elevate the left lobe of the liver for greater visualization of the upper abdomen, particularly the superior pole of the stomach. The patient was then placed in reverse Trendelenburg. The Abad liver retractor was held in place using an iron science intern. Along the lesser curvature of the stomach between the second and third veins, dissection was made along the retrogastric space to allow first firing of the Covidien Tri-Staple purple load. Once adequately mobilized, an initial firing using a 60 mm purple load was performed perpendicular to the lesser curvature of the stomach. To completely divide the pouch from the remnant stomach, three 60 mm purple loads were fired towards the angle of His. A total of 3 - 60 mm purple staplers were used to create the gastric pouch. Hemostasis was checked with electro-Bovie cautery along the left lateral edge of the gastric remnant stomach. The patient was then prepared for placement of a Orvil. The patient was Mallampati 2. A 25-mm Orvil was selected for placement by the nurse lineman service or work dispatcher. The Orvil tubing was placed anterior to the staple line of the gastric pouch and brought out through the left inferior lateral port along the tv production assistant port. The Orvil was then carefully and successfully navigated with the help of the nurse lineman service or work dispatcher into the gastric pouch. The sutures were identified and divided. The tubing was from the 25 mm anvil. Using aseptic technique all instruments including port sites were exchanged. As the Orvil had been placed, the blind jejunal limb was brought proximally into the upper abdomen. The transverse mesocolon was cleaved using a Harmonic scalpel. The patient was repositioned in reverse Trendelenburg. No torsion was found upon the Jorden limb. No tension was identified as the limb was brought along the upper abdomen. The blind jejunal limb was opened using a cordless Harmonic scalpel. The 25-mm EEA stapler was brought through the left anterior lateral port site from the left side. Please note that the trocars from the Orvil tubing, including the port, were removed to minimize contamination from the oral chantell. The EEA stapler was brought through the open jejunal limb and its needle was deployed at the antimesenteric border where the anvil were mated for approximately 1 minute upon firing. The stapler was removed after irrigating the shaft of the instrument with warm normal saline. Donuts were found to be intact and thick on both sides. The open jejunal limb defect was closed using a 60 mm walker load after releasing any tension from the blind jejunal limb. Hemostasis was checked with Sonicision along the blind jejunal limb mesentery. Care was taken to avoid any long blind limb to avoid candycane syndrome. No reinforcement sutures were needed along the gastrojejunal anastomosis. Closure of the mesenteric defects was performed, initially of the Tam defect using 2-0 silk on an Endo Stitch and a Lapra-Ty and the jejunojejunostomy mesenteric defect. I then went to the head of the bed to perform the esophagogastrojejunoscopy and a leak test. An Olympus gastroscope was passed along the posterior oropharynx which was unremarkable for any injury to the vocal cords. The scope was passed down to the proximal portion of the pouch, whereby no active bleeding was encountered. Excellent visualization of the gastrojejunostomy anastomosis, including the Jorden limb was encountered with endoscopic image obtained. The anastomosis was found to be patent. The gastrointestinal tract was desufflated. No evidence of intraoperative leak was encountered as the gastric pouch and anastomosis were submerged under normal saline solution. I then went back to the bedside of the patient, whereby with coordinated effort of the tv production assistant, irrigation was aspirated from the upper abdominal cavity. Tisseel was placed circumferentially over the anastomosis of the gastrojejunostomy. All instruments and pneumoperitoneum were evacuated from the abdominal cavity. The port correlating with the EEA stapler device was copiously irrigated with 3 L of warm normal saline solution and 50 mL of hydrogen peroxide. The fascial defect was closed using a Rajat Leslie and 0 Vicryl with 2 separate sutures. A quarter inch Zeus drain was placed along the EEA stapler site and tacked using 2-0 nylon. The rest of incisions were reapproximated using 3-0 Vicryl for deep subcutaneous tissue and dermis followed by 4-0 Monocryl in a running subcuticular fashion. For local anesthetic, 85 mL of Exparel including Sensorcaine with epinephrine and normal saline mixture was infiltrated along the skin for postop analgesia. Dermabond was applied to the skin. OptiFoam dressing was placed along the EEA stapler site. At the end of the procedure, needle, sponge and instrument count had been verified correct by the prosthetic technician. She had tolerated the procedure well and was taken to the postanesthesia unit in stable condition. Total skin to skin time was 93 minutes. Intraoperative films were reviewed with the patient's family who are very pleased with the level of care. FINDINGS: 1. Negative intraoperative esophagogastrojejunoscopy leak test. 2. No fatty liver disease or hepatomegaly. 3. All defects including jejunojejunostomy Tam defects were closed. 4. Total of 3 staple loads including 3 - 60 mm Covidien tri-stapler purple loads used to create the gastric pouch. 5. Gastrojejunostomy created using 25 mm Orvil. 6. Jejunojejunostomy created with 90 mm saleem-lumen 7. Xiphoid to umbilical height of 21 cm. 8. Adhesions along the lower pelvis and abdomen of greater omentum to the abdominal wall addressed with lysis of adhesions over 30 minutes.
== END 2016-08-18 16:35 | disposition home or self-care (01) | DRG 621 ==
LOC: 2ORWHC 09:08 → 3SUR 14:53
PROVIDERS: ADMIT Surgery Plastic and Reconstructive Surgery; ATTEND Surgery Plastic and Reconstructive Surgery
PROC: 0DJ08ZZ Inspection of Upper Intestinal Tract, Via Natural or Artificial Opening Endoscopic (ICD-10-PCS; 2016-08-16)
PROC: 0D164ZA Bypass Stomach to Jejunum, Percutaneous Endoscopic Approach (ICD-10-PCS; principal; 2016-08-16 11:10)
DX: E66.01 Morbid (severe) obesity due to excess calories (principal); I11.9 Hypertensive heart disease without heart failure; K21.9 Gastro-esophageal reflux disease without esophagitis; Z71.3 Dietary counseling and surveillance; Z68.41 Body mass index [BMI] 40.0-44.9, adult; M16.0 Bilateral primary osteoarthritis of hip; G47.419 Narcolepsy without cataplexy; G47.33 Obstructive sleep apnea (adult) (pediatric); E78.1 Pure hyperglyceridemia; E78.00 Pure hypercholesterolemia, unspecified; E55.9 Vitamin D deficiency, unspecified; G43.909 Migraine, unspecified, not intractable, without status migrainosus; Z86.718 Personal history of other venous thrombosis and embolism; Z87.891 Personal history of nicotine dependence; Z90.710 Acquired absence of both cervix and uterus; Z79.899 Other long term (current) drug therapy
CPT/HCPCS: 80051; 82310; 82565; 83735; 84100; 84520; 85025; 92950; 93970; 94640; 94760; 94762

== ENCOUNTER → 2016-08-20 | Outpatient (CLI) | payer BC, OTHER ==
[2016-08-20 10:33] VITALS: BP 145/84; PULSE 88; RESP 14; TEMP 98.3; BMI 43.7
--- NOTE | 2016-08-26 05:17 | PN ---
DATE OF SERVICE: 08/20/2016 CHIEF COMPLAINT: Follow-up gastric bypass. HISTORY OF PRESENT ILLNESS: Marci Singh is a 41-year-old female status post gastric bypass on 08/16/2016. She is now postop day #4. She is accompanied by her family. She reports some intolerance to omeprazole as she has been attempting to take the pill whole. Separately she reports taking moderate amount of her pain meds. No reports of fevers or chills. Overall she is fairly sore. She has yet to have a bowel movement. At her height of 5 feet 4 inches, her ideal body weight is 144 pounds. Today she comes in weighing 254 pounds. She has already lost a total of 24 pounds lifetime weight. Her body mass index is now reduced from 47 down to 43.8. PHYSICAL EXAM: VITAL SIGNS: 98.3, 88, 14, 145/84, 5 feet 4 inches, 254 pounds. Body mass index is 43.8. ABDOMEN: Soft. [place] drain was discontinued. No signs of cellulitis or infection. Appropriate joleen-incisional tenderness of the left upper quadrant noted. No peritonitis. GENERAL: Well-developed female in no acute distress. HEENT: No scleral icterus. Extraocular movements grossly intact. Moist buccal mucosa. NECK: Supple without lymphadenopathy. CHEST: Nonlabored respirations. Equal bilateral excursions. CARDIOVASCULAR: Regular rate and rhythm. MUSCULOSKELETAL: No clubbing, cyanosis, or edema. NEURO: No focal or lateralizing signs. Cranial nerves II through XII grossly within normal limits. PSYCH: Appropriate affect. Alert and oriented to person, place, and time. ASSESSMENT: 1. Morbid obesity due to excess calories. 2. Body mass index reduced from 47.8 down to 43.8. 3. Status post Jorden-en-Y gastric bypass. 4. History of obstructive sleep apnea. 5. Post incisional pain. PLAN: 1. Clinically I have encouraged her that pain is to be expected especially at the left upper quadrant. 2. Recommend milk of magnesia or magnesium citrate for bowel movement. 3. Recommended a followup in one week. 4. I did review with her that upon discussion with the sales associate fishing that she has no confirmed history of blood clots hence no additional post surgery Lovenox is pending. [facility]
--- NOTE | 2016-09-19 16:49 | P.PN ---
Progress Note - Text DATE OF SERVICE: 08/20/2016 CHIEF COMPLAINT: Follow-up gastric bypass. HISTORY OF PRESENT ILLNESS: Marci Singh is a 41-year-old female status post gastric bypass on 08/16/2016. She is now postop day #4. She is accompanied by her family. She reports some intolerance to omeprazole as she has been attempting to take the pill whole. Separately she reports taking moderate amount of her pain meds. No reports of fevers or chills. Overall she is fairly sore. She has yet to have a bowel movement. At her height of 5 feet 4 inches, her ideal body weight is 144 pounds. Today she comes in weighing 254 pounds. She has already lost a total of 24 pounds lifetime weight. Her body mass index is now reduced from 47 down to 43.8. PHYSICAL EXAM: VITAL SIGNS: 98.3, 88, 14, 145/84, 5 feet 4 inches, 254 pounds. Body mass index is 43.8. ABDOMEN: Soft. [place] drain was discontinued. No signs of cellulitis or infection. Appropriate joleen-incisional tenderness of the left upper quadrant noted. No peritonitis. GENERAL: Well-developed female in no acute distress. HEENT: No scleral icterus. Extraocular movements grossly intact. Moist buccal mucosa. NECK: Supple without lymphadenopathy. CHEST: Nonlabored respirations. Equal bilateral excursions. CARDIOVASCULAR: Regular rate and rhythm. MUSCULOSKELETAL: No clubbing, cyanosis, or edema. NEURO: No focal or lateralizing signs. Cranial nerves II through XII grossly within normal limits. PSYCH: Appropriate affect. Alert and oriented to person, place, and time. ASSESSMENT: 1. Morbid obesity due to excess calories. 2. Body mass index reduced from 47.8 down to 43.8. 3. Status post Jorden-en-Y gastric bypass. 4. History of obstructive sleep apnea. 5. Post incisional pain. PLAN: 1. Clinically I have encouraged her that pain is to be expected especially at the left upper quadrant. 2. Recommend milk of magnesia or magnesium citrate for bowel movement. 3. Recommended a followup in one week. 4. I did review with her that upon discussion with the beef cattle farm worker that she has no confirmed history of blood clots hence no additional post surgery Lovenox is pending.
== END | disposition home or self-care (01) ==
LOC: BARWHC3 09:38
PROVIDERS: ATTEND Surgery Plastic and Reconstructive Surgery
DX: Z48.815 Encounter for surgical aftercare following surgery on the digestive system (principal); Z98.84 Bariatric surgery status; E66.01 Morbid (severe) obesity due to excess calories; Z68.41 Body mass index [BMI] 40.0-44.9, adult; G47.33 Obstructive sleep apnea (adult) (pediatric); G89.18 Other acute postprocedural pain
CPT/HCPCS: 99211

== ENCOUNTER → 2016-08-25 | Outpatient (CLI) | payer BC, OTHER ==
[2016-08-25 08:33] VITALS: BP 150/107; PULSE 108; RESP 16; TEMP 98.3; BMI 42.4
--- NOTE | 2016-08-26 05:11 | PN ---
DATE OF SERVICE: 08/25/2016 CHIEF COMPLAINT: Follow-up gastric bypass. HISTORY OF PRESENT ILLNESS: Marci Singh is a 41-year-old female who is status post 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 She is approximately a little over 2 weeks out. She complains of left upper quadrant incisional pain. No reports of fever or chills. No reports of nausea, vomiting. She is tolerating liquids. At her height of 5 feet 4 inches, her ideal body weight is 144 pounds. Her highest weight was 278 pounds. Today she comes in weighing 247 pounds. Total life time weight loss of 31 pound. She has lost 12 pounds in approximately one month. Body mass index has reduced from 47.8 down to 42.5. Percent excess weight loss is 23%. PHYSICAL EXAM: VITAL SIGNS: 98.3, 108, 16, 150/107. ABDOMEN: Soft. No signs of cellulitis or infection. Skin indentation noted along the left upper quadrant. GENERAL: Well-developed female in no acute distress. HEENT: No scleral icterus. Extraocular movements grossly intact. Moist buccal mucosa. NECK: Supple without lymphadenopathy. CHEST: Nonlabored respirations. Equal bilateral excursions. CARDIOVASCULAR: Tachycardic. MUSCULOSKELETAL: No clubbing, cyanosis, or edema. NEURO: No focal or lateralizing signs. Cranial nerves II through XII grossly within normal limits. PSYCH: Alert and oriented to person, place, and time. ASSESSMENT: 1. Morbid obesity due to excess calories. 2. Body mass index reduced from 47.8 down to 42.5. 3. Status post Jorden-en-Y gastric bypass. 4. Post incisional pain, left upper quadrant. 5. Obstructive sleep apnea. 6. Hypertensive heart disease. 7. Gastroesophageal reflux disease, improved. PLAN: 1. Clinically,her gastroesophageal reflux disease is completely resolved. 2. She has moderate pain with hypertension. A prescription for Xanax including Bruin elixir was written on her behalf. 3. I have asked her to apply gentle pressure with an abdominal binder for comfort along her left upper quadrant incision. 4. Recommended followup in one week. [facility]
== END | disposition home or self-care (01) ==
LOC: BARWHC3 08:05
PROVIDERS: ATTEND Surgery Plastic and Reconstructive Surgery
DX: Z48.815 Encounter for surgical aftercare following surgery on the digestive system (principal); Z98.84 Bariatric surgery status; E66.01 Morbid (severe) obesity due to excess calories; Z68.41 Body mass index [BMI] 40.0-44.9, adult; G89.18 Other acute postprocedural pain; G47.33 Obstructive sleep apnea (adult) (pediatric); I11.9 Hypertensive heart disease without heart failure; Z79.899 Other long term (current) drug therapy
CPT/HCPCS: 99211

== ENCOUNTER → 2016-09-01 | Outpatient (CLI) | payer BC, OTHER ==
[2016-09-01 13:17] VITALS: BP 140/93; PULSE 98; RESP 16; TEMP 98.1; BMI 40.8
--- NOTE | 2016-10-05 23:31 | P.PN ---
Progress Note - Text DATE OF SERVICE: 09/01/2016. CHIEF COMPLAINT: Follow-up gastric bypass. HISTORY OF PRESENT ILLNESS: Marci Singh is a 41-year-old female status post gastric bypass on 08/18/2016. She is approximately 2 weeks out. She has improvement of her incisional pain of the left upper quadrant. She is eating cottage cheese. She has moderate concerns with her pannus as the weight of her pannus is causing quite a bit of discomfort. She reports improvement in her blood pressure. No reports of troubles with textured foods. At her height of 5 feet 4 inches, her ideal body weight is 144 pounds. Her highest weight was 278 pounds. Today she comes in weighing 238 pounds. She has already lost 40 pounds. She has lost about 9 pounds in approximately one week. Percent excess weight loss is now up to 30%. Body mass index is reduced from 47.8 down to the 40.9. Total BMI point reduction is 7 points. PHYSICAL EXAM: VITAL SIGNS: 98.1, 98, 16, 140/93; 5 feet 4 inches; 238 pounds. Body mass index of 40.9. ABDOMEN: Mild indentation of the left upper quadrant. No Palpable incisional hernias. No signs of cellulitis. MUSCULOSKELETAL: No clubbing, cyanosis, or edema. CARDIOVASCULAR: Regular rate and rhythm. GENERAL: Well-developed female in no acute distress. HEENT: No scleral icterus. Extraocular movements grossly intact. Moist buccal mucosa. NECK: Supple without lymphadenopathy. CHEST: Nonlabored respirations. Equal bilateral excursions. NEURO: No focal or lateralizing signs. Cranial nerves II through XII grossly within normal limits. PSYCH: Alert and oriented to person, place, and time. LABS: None at this time. ASSESSMENT: 1. Morbid obesity due to excess calories. 2. Body mass index reduced from 47.8 down to 40.9. 3. Status post gastric bypass. 4. History of post incisional left upper quadrant abdominal pain. 5. Panniculitis. PLAN: 1. She does have intermittent irritation of her pannus, for which Nystatin powder is recommended. 2. She still has puckering of the skin on the left upper quadrant for which I have asked her to continue with massaging to remove the moderate indentation. 3. She can transition to more textured foods, particularly with ground beef and cottage cheese. 4. I recommend close evaluation with follow-up in one month postop from her surgery.
== END | disposition home or self-care (01) ==
LOC: BARWHC3 12:53
PROVIDERS: ATTEND Surgery Plastic and Reconstructive Surgery
DX: Z71.3 Dietary counseling and surveillance (principal); E66.01 Morbid (severe) obesity due to excess calories; Z68.41 Body mass index [BMI] 40.0-44.9, adult
CPT/HCPCS: 99211

== ENCOUNTER → 2016-09-16 | Outpatient (CLI) | payer BC, OTHER ==
[2016-09-16 12:11] VITALS: BMI 40.2
[2016-09-16 14:10] LABS: ALT 36 U/L (9-52); AST 21 U/L (14-36); Alkaline Phosphatase 79 U/L (38-126); Anion Gap 12 mmol/L; Blood Urea Nitrogen 12 mg/dL (7-17); Calcium 9.9 mg/dL (8.4-10.2); Carbon Dioxide 28 mmol/L (22-30); Chloride 103 mmol/L (98-107); Cholesterol 175 mg/dL (<200); Glucose 80 mg/dL (74-99); HDL Cholesterol 51 mg/dL (40-60); Iron 43 ug/dL (37-170); Non-African American GFR(MDRD) >60 (>60 ml/min/1.73 sqM); Sodium 143 mmol/L (137-145); Total Bilirubin 2.3 mg/dL (0.2-1.3); Total Protein 7.4 g/dL (6.3-8.2); Triglycerides 160 mg/dL (<150)
[2016-09-16 14:11] LABS: INR 1.1 (<1.1); Partial Thromboplastin Time 25.5 sec (22.0-30.0); Prothrombin Time 10.7 sec (9.0-12.0)
[2016-09-16 14:13] LABS: CHCM 32.6; HCT 47.4 % (34.0-46.0); HDW 2.92; MCH 28.1 pg (25.0-35.0); MCHC 32.6 g/dL (31.0-37.0); MCV 86.2 fL (80.0-100.0); Mean Platelet Volume 7.4; WBC 8.4 k/uL (3.8-10.6)
[2016-09-16 14:14] LABS: HGB 15.4 gm/dL (11.4-16.0)
[2016-09-16 14:20] LABS: % Iron Saturation 15.1 % (20-50); Prealbumin 24 mg/dL (18-36); Total Iron Binding Capacity 285 ug/dL (265-497)
[2016-09-16 15:15] LABS: Vitamin B12 517 pg/mL (239-931)
[2016-09-21 18:36] LABS: Selenium 144 mcg/L (63-160)
--- NOTE | 2016-10-14 21:42 | P.PN ---
Progress Note - Text DATE OF SERVICE: 09/16/2016 CHIEF COMPLAINT: Follow-up gastric bypass. HISTORY OF PRESENT ILLNESS: Marci Singh is a 41-year-old female, status post Jorden-en-Y gastric bypass in 08/16/2016. She is now one month out. At her height of 5 feet 4, her ideal body weight is 144 pounds. Her initial weight was 270 pounds. Today she comes in 234 pounds. She has lost 44 pounds. Percent excess weight loss is 33%. Body mass index is reduced from 47.8 down to 40.2. Total BMI point reduction is 7.6. She is still approximately 90 pounds overweight. She has lost 4 pounds in one week. She reports some discomfort along the left upper quadrant; however moderately improved. She also reports new onset left lower quadrant abdominal pain. PHYSICAL EXAM: VITAL SIGNS: Stable. ABDOMEN: Soft, nondistended. Some tenderness along the left lower quadrant highly suspicious for diverticulitis. Mild skin irritation along the left upper quadrant. MUSCULOSKELETAL: No clubbing, cyanosis, or edema. CARDIOVASCULAR: Regular rate and rhythm. GENERAL: Well-developed female in no acute distress. HEENT: No scleral icterus. Extraocular movements grossly intact. Moist buccal mucosa. NECK: Supple without lymphadenopathy. CHEST: Nonlabored respirations. Equal bilateral excursions. NEURO: No focal or lateralizing signs. Cranial nerves II through XII grossly within normal limits. PSYCH: Alert and oriented to person, place, and time. ASSESSMENT: 1. Morbid obesity due to excess calories. 2. Body mass index reduced from 47.8 down to 40.2. 3. Status post Jorden-en-Y gastric bypass. 4. Left lower quadrant abdominal pain, new. 5. Probable diverticulitis. 6. Vitamin D deficiency. PLAN: 1. I recommend CT scan of the abdomen and pelvis. Her findings are highly suspicious for diverticulitis. 2. I have recommended abdominal binder at all times for discomfort. 3. Also recommend urinalysis for further evaluation and management. 4. Recommend follow-up in one to two weeks. ADDENDUM: LABS: White count was normal at 8.4. Hemoglobin was elevated at 15.4. Percent iron saturation was low at 15.1. Total bilirubin was elevated at 223. Triglycerides elevated at 160. Vitamin D was low at 25.6. STUDIES: CT of the abdomen and pelvis was reviewed, demonstrating no evidence of leak. Hepatomegaly was confirmed. Ovarian cysts were identified. No colitis was identified.
== END | disposition home or self-care (01) ==
LOC: BARWHC3 10:05
PROVIDERS: ATTEND Surgery Plastic and Reconstructive Surgery
DX: Z48.815 Encounter for surgical aftercare following surgery on the digestive system (principal); Z71.3 Dietary counseling and surveillance; E66.01 Morbid (severe) obesity due to excess calories; Z68.41 Body mass index [BMI] 40.0-44.9, adult; E21.1 Secondary hyperparathyroidism, not elsewhere classified; E89.1 Postprocedural hypoinsulinemia; D50.8 Other iron deficiency anemias; E44.0 Moderate protein-calorie malnutrition; E55.9 Vitamin D deficiency, unspecified; K74.1 Hepatic sclerosis; N19 Unspecified kidney failure; K50.90 Crohn's disease, unspecified, without complications; Z98.84 Bariatric surgery status; K43.9 Ventral hernia without obstruction or gangrene; K57.33 Diverticulitis of large intestine without perforation or abscess with bleeding; R10.32 Left lower quadrant pain; K92.1 Melena
CPT/HCPCS: 80053; 80061; 82306; 82525; 82607; 82728; 82746; 83036; 83540; 83550; 83735; 83970; 84100; 84134; 84255; 84425; 84443; 84590; 84630; 85027; 85610; 85730; 99211

== ENCOUNTER → 2016-09-16 | Outpatient (CLI) | payer BC, OTHER ==
--- NOTE | 2016-09-16 14:00 | CT ---
EXAMINATION TYPE: CT abdomen pelvis w con DATE OF EXAM: 09/16/2016 1:42 PM REFERENCE: NONE HISTORY: K92.1 Bloody Stool HISTORY: Bloody stool REFERENCE: NONE CT DLP: 1616.20 mGy Automated exposure control for dose reduction was used. TECHNIQUE: Helical acquisition through the abdomen and pelvis was obtained following the oral ingesti on of with Oral Contrast and following intravenous administration of 100 ml mL of Omnipaque 300. The data was reformatted in axial, coronal and sagittal projections. FINDINGS: Visualized portions of the lungs are clear. There is no pleural or pericardial fluid. The heart is not enlarged. There is been previous gastric surgery. The liver is mildly prominent measuring 18 cm. The spleen is upper limits of normal in size. The gall bladder is normal. Both adrenal glands are normal. Both kidneys demonstrate function and appear morphologically normal. The pancreas appears unremarkable. There is no significant retroperitoneal, iliac or inguinal adenopathy. The uterus is not visualized. There is cystic change in both ovaries. There is a 2 cm cyst in the rig ht ovary and a 1.7 cm cyst in the left ovary. The bladder is unremarkable. There is no significant diverticular change and there is no radiographic evidence of diverticulitis. The appendix is normal. Small bowel loops are normal. The configuration of the subcutaneous fat in the anterior abdomen on the left. This may be secondary to injection or bruising. No osseous lesion is seen. IMPRESSION: 1. MILD HEPATOMEGALY. 2. CYSTIC CHANGE IN BOTH OVARIES. 3. INDURATION OF THE ANTERIOR ABDOMINAL WALL SUBCUTANEOUS FAT. PLEASE CORRELATE CLINICALLY.
== END | disposition home or self-care (01) ==
LOC: RADCTMAIN 12:44
PROVIDERS: ATTEND Surgery Plastic and Reconstructive Surgery
DX: R16.0 Hepatomegaly, not elsewhere classified (principal); R93.8 Abnormal findings on diagnostic imaging of other specified body structures; E21.1 Secondary hyperparathyroidism, not elsewhere classified; K90.89 Other intestinal malabsorption; E55.9 Vitamin D deficiency, unspecified; K74.1 Hepatic sclerosis; N19 Unspecified kidney failure; K50.90 Crohn's disease, unspecified, without complications; D50.8 Other iron deficiency anemias
CPT/HCPCS: 74177; Q9967

== ENCOUNTER → 2016-10-06 | Outpatient (CLI) | payer BC, OTHER ==
[2016-10-06 14:08] VITALS: BP 126/90; PULSE 72; TEMP 97.2; BMI 38.2
--- NOTE | 2016-10-06 14:33 | P.PN ---
Progress Note - Text To whom it may concern: Marci Singh is under my surgical care. She may return to work without restrictions on 10/12/16. Please call us if questions. Regards, Meera Suarez MD, FACS
--- NOTE | 2016-10-17 09:22 | PN ---
DATE OF SERVICE: 10/06/2016 CHIEF COMPLAINT: Follow up gastric bypass. HISTORY OF PRESENT ILLNESS: Aleyda Singh is a 41-year-old female status post gastric bypass on 08/18/2016. She has had some troubles with recovery primarily of pain of the left upper quadrant. Her pain is moderately improved. Incidentally for her height of 5'4", her ideal body weight is 144 pounds. Her highest weight was 278 pounds. Today she comes in weighing 223 pounds. She has lost 55 pounds in approximately 2 months. Percent excess weight loss is 21%. She has lost another 11 pounds in one month. Body mass index is reduced from 47.8 down to 38.3. BMI point reduction is 9.5. She is still 79 pounds overweight. She has started her multivitamin regimen as well. PHYSICAL EXAM: VITAL SIGNS: 97.2, 72, 126/90, 16, 5 feet 4 inches, 223 pounds. Body mass index 38.3. ABDOMEN: Soft, nontender and nondistended. Indentation of the left upper quadrant mildly improved. No signs of infection or cellulitis. MUSCULOSKELETAL: No clubbing, cyanosis, or edema. CARDIOVASCULAR: Regular rate and rhythm. GENERAL: Well-developed female in no acute distress. HEENT: No scleral icterus. Extraocular movements grossly intact. Moist buccal mucosa. NECK: Supple without lymphadenopathy. CHEST: Nonlabored respirations. Equal bilateral excursions. NEURO: No focal or lateralizing signs. Cranial nerves II through XII grossly within normal limits. PSYCH: Alert and oriented to person, place, and time. ASSESSMENT: 1. Morbid obesity due to excess calories. 2. Body mass index reduced from 47.8 down to 38.3. 3. Dietary surveillance and counseling. 4. Osteoarthritis, improved. 5. Hypertension, improved. 6. Sleep apnea, improved. PLAN: 1. Overall she had challenges in her recovery secondary to pain, which is now improved. 2. Recommend goal protein intake of over 75 grams daily. 3. As she is now 2 months postop, will recommend follow-up on every 3 month cycle. Next visit pending at least for October 2016 and thereafter. 4. The patient reports resolution of osteoarthritis, including hypertension and sleep apnea. [facility]
== END | disposition home or self-care (01) ==
LOC: BARWHC3 13:27
PROVIDERS: ATTEND Surgery Plastic and Reconstructive Surgery
DX: Z48.815 Encounter for surgical aftercare following surgery on the digestive system (principal); E66.01 Morbid (severe) obesity due to excess calories; Z68.38 Body mass index [BMI] 38.0-38.9, adult; Z98.84 Bariatric surgery status
CPT/HCPCS: 99211

== ENCOUNTER → 2016-10-11 | Outpatient (CLI) | payer BC, OTHER ==
[2016-10-11 09:43] VITALS: BP 124/90; PULSE 78; RESP 16; TEMP 97.1; BMI 38.5
--- NOTE | 2016-11-12 22:37 | P.PN ---
Progress Note - Text DATE OF SERVICE: 10/11/2016 CHIEF COMPLAINT: Jorden-en-Y gastric bypass. HISTORY OF PRESENT ILLNESS: Marci Singh is a 41-year-old female status post 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 At her height of 5 feet 4 inches, her ideal body weight is 144 pounds. Her highest weight was 270 pounds. She comes in weighing 224 pounds. She has lost 46 pounds in 2 months. Percent excess weight loss is 36%. Her body mass index is reduced from 46.4 down to 38.5. She comes in today after developing in less than 12 hours new onset swelling along her left upper quadrant incision, which is completely granulated. She reports redness. No reports of drainage. She reports intense pain from it. No reports of fevers or chills. PHYSICAL EXAM: VITAL SIGNS: 97.1, 72, 16, 124/90, 5 foot 4, 224 pounds. Body mass index 38.5. ABDOMEN: Soft, nondistended, tenderness along the left upper quadrant lateral incision with a 2 cm swelling, which is erythematous and tender to touch. MUSCULOSKELETAL: No clubbing, cyanosis, or edema. CARDIOVASCULAR: Regular rate and rhythm. GENERAL: Well-developed female in no acute distress. HEENT: No scleral icterus. Extraocular movements grossly intact. Moist buccal mucosa. NECK: Supple without lymphadenopathy. CHEST: Nonlabored respirations. Equal bilateral excursions. NEURO: No focal or lateralizing signs. Cranial nerves II through XII grossly within normal limits. PSYCH: Alert and oriented to person, place, and time. ASSESSMENT: 1. Status post gastric bypass. 2. Morbid obesity due to excess calories. 3. Body mass index reduced from 46.4 down to 38.5. 4. Left upper quadrant incisional swelling. PLAN: 1. The swelling is highly suspicious for an abscess. I recommend fine needle aspiration. 2. Recomm cultures for organisms. 3. Recommend completion of bariatric metabolic panel. PROCEDURE: Fine needle aspiration left upper quadrant. DESCRIPTION: After verbal consent, the swelling of the left upper quadrant was cleansed with alcohol swab. The skin was localized with 1 mL of 1% lidocaine with epinephrine. Using an 18-gauge needle 3 mL of jefe pus was decompressed from the wound. The swelling had completely flattened. The erythema had resolved. Sterile Band-Aid was placed. The patient tolerated the procedure well. Aerobic, anaerobic cultures were sent. ADDENDUM: LABS: Hemoglobin was normal at 8.4. Neutrophil count was within normal limits. Hematocrit was elevated at 47.4. Percent iron saturation low at 15.1. Total bilirubin is elevated at 2.3 up from 0.9. Triglycerides elevated at 116. Vitamin D was low at 25.6. Recommend vitamin D supplement.
== END ==
LOC: BARWHC3 09:16
PROVIDERS: ATTEND Surgery Plastic and Reconstructive Surgery
DX: Z48.815 Encounter for surgical aftercare following surgery on the digestive system (principal); R19.02 Left upper quadrant abdominal swelling, mass and lump; E66.01 Morbid (severe) obesity due to excess calories; Z68.38 Body mass index [BMI] 38.0-38.9, adult; Z98.84 Bariatric surgery status
CPT/HCPCS: 87070; 87075; 87205; 99211

== ENCOUNTER → 2016-12-01 | Outpatient (CLI) | payer BC, OTHER ==
[2016-12-01 15:17] VITALS: BMI 37.0
[2016-12-01 16:43] LABS: CH 28.8; CHCM 32.9; HCT 44.7 % (34.0-46.0); HDW 2.71; HGB 14.6 gm/dL (11.4-16.0); MCH 28.7 pg (25.0-35.0); MCHC 32.6 g/dL (31.0-37.0); MCV 87.9 fL (80.0-100.0); Mean Platelet Volume 7.5; RBC 5.08 m/uL (3.80-5.40); RDW 14.6 % (11.5-15.5); WBC 9.2 k/uL (3.8-10.6)
[2016-12-01 16:58] LABS: ALT 26 U/L (9-52); AST 16 U/L (14-36); Alkaline Phosphatase 96 U/L (38-126); Anion Gap 8 mmol/L; Blood Urea Nitrogen 12 mg/dL (7-17); Calcium 9.6 mg/dL (8.4-10.2); Carbon Dioxide 28 mmol/L (22-30); Chloride 105 mmol/L (98-107); Cholesterol 184 mg/dL (<200); Glucose 84 mg/dL (74-99); HDL Cholesterol 52 mg/dL (40-60); Iron 36 ug/dL (37-170); Magnesium 2.1 mg/dL (1.6-2.3); Non-African American GFR(MDRD) >60 (>60 ml/min/1.73 sqM); Phosphorous 3.8 mg/dL (2.5-4.5); Potassium 4.1 mmol/L (3.5-5.1); Sodium 141 mmol/L (137-145); Total Bilirubin 1.1 mg/dL (0.2-1.3); Total Protein 6.7 g/dL (6.3-8.2); Triglycerides 176 mg/dL (<150)
[2016-12-01 17:08] LABS: % Iron Saturation 11.3 % (20-50); Prealbumin 24 mg/dL (18-36); Total Iron Binding Capacity 319 ug/dL (265-497)
[2016-12-01 17:10] LABS: Partial Thromboplastin Time 25.4 sec (22.0-30.0); Prothrombin Time 10.2 sec (9.0-12.0)
[2016-12-01 18:19] LABS: Vitamin B12 302 pg/mL (239-931)
[2016-12-01 20:57] LABS: Hemoglobin A1C 4.9 % (4.2-6.1)
[2016-12-07 15:12] LABS: Selenium 102 mcg/L (63-160)
== END | disposition home or self-care (01) ==
LOC: BARWHC3 14:19
PROVIDERS: ATTEND Surgery Plastic and Reconstructive Surgery
DX: E66.01 Morbid (severe) obesity due to excess calories (principal); E89.1 Postprocedural hypoinsulinemia; D50.9 Iron deficiency anemia, unspecified; K90.9 Intestinal malabsorption, unspecified; E55.9 Vitamin D deficiency, unspecified; K74.1 Hepatic sclerosis; N19 Unspecified kidney failure; K50.90 Crohn's disease, unspecified, without complications
CPT/HCPCS: 80053; 80061; 82306; 82525; 82607; 82728; 82746; 83036; 83540; 83550; 83735; 83970; 84100; 84134; 84255; 84425; 84443; 84590; 84630; 85027; 85610; 85730; 97803; 99211

== ENCOUNTER → 2017-03-16 | Outpatient (CLI) | payer BC, OTHER ==
[2017-03-16 15:19] VITALS: BP 132/85; PULSE 74; TEMP 98.1; BMI 32.5
[2017-03-16 16:16] LABS: CH 30.2; CHCM 34.5; HCT 41.2 % (34.0-46.0); HGB 13.9 gm/dL (11.4-16.0); MCH 29.7 pg (25.0-35.0); MCHC 33.7 g/dL (31.0-37.0); MCV 88.1 fL (80.0-100.0); Mean Platelet Volume 7.7; RBC 4.68 m/uL (3.80-5.40); RDW 14.4 % (11.5-15.5); WBC 9.4 k/uL (3.8-10.6)
[2017-03-16 16:24] LABS: Partial Thromboplastin Time 24.7 sec (22.0-30.0); Prothrombin Time 10.5 sec (9.0-12.0)
[2017-03-16 16:38] LABS: ALT 32 U/L (9-52); AST 16 U/L (14-36); Alkaline Phosphatase 104 U/L (38-126); Anion Gap 9 mmol/L; Blood Urea Nitrogen 10 mg/dL (7-17); Calcium 9.1 mg/dL (8.4-10.2); Carbon Dioxide 26 mmol/L (22-30); Chloride 105 mmol/L (98-107); Cholesterol 171 mg/dL (<200); Glucose 83 mg/dL (74-99); HDL Cholesterol 54 mg/dL (40-60); Magnesium 1.9 mg/dL (1.6-2.3); Non-African American GFR(MDRD) >60 (>60 ml/min/1.73 sqM); Sodium 140 mmol/L (137-145); Total Bilirubin 1.3 mg/dL (0.2-1.3); Total Protein 6.3 g/dL (6.3-8.2)
[2017-03-16 17:25] LABS: Vitamin B12 238 pg/mL (239-931)
[2017-03-17 00:54] LABS: Iron Saturation 11.38 (12.00-45.00)
[2017-03-18 17:31] LABS: Selenium 124 mcg/L (63-160)
--- NOTE | 2017-03-27 17:55 | P.PN ---
Progress Note - Text DATE OF SERVICE: 03/16/2017 CHIEF COMPLAINT: Jorden-en-Y gastric bypass. HISTORY OF PRESENT ILLNESS: Marci Singh is a 41-year-old female status post 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 At her height of 5 feet 4 inches, her ideal body weight is 144 pounds. Her highest weight was 278 pounds. She comes in weighing 196 pounds. She has lost 82 pounds. She has lost another 20 pounds in 3 months. Percent excess weight loss is 62 %. Her body mass index is reduced from 47.8 down to 33.6. She reports history of kidney stones. She denies any nausea or vomiting. She reports diarrhea. No reports of reflux disease. Now she presents 7 months postop. PAST MEDICAL HISTORY: 1. Obstructive sleep apnea. 2. Hypertension. 3. Osteoarthritis of the bilateral hips. 4. Morbid obesity. 5. Postoperative nausea and vomiting. 6. Kidney stones. PAST SURGICAL HISTORY: 1. Hysterectomy. 2. Bladder suspension. 3. Left elbow surgery. 4. Tonsillectomy. 5. Laparoscopic gastric bypass. MEDICATIONS: 1. Iron. 2. Multivitamin. 3. Lynndyl. ALLERGIES: CODEINE. SOCIAL HISTORY: Former tobacco use. FAMILY HISTORY: Denies any esophageal, stomach cancer. REVIEW OF SYSTEMS: CONSTITUTIONAL: At her height of 5 feet 4 inches, her ideal body weight is 144 pounds. Her highest weight was 278 pounds. She comes in weighing 196 pounds. She has lost 82 pounds. She has lost another 20 pounds in 3 months. Percent excess weight loss is 62 %. Her body mass index is reduced from 47.8 down to 33.6. HEENT: No troubles with vision or hearing. No reports of dysphagia. ENDOCRINE: No reports of active diabetes or thyroid disorder. RESPIRATORY: She denies any dyspnea on exertion. No reports of asthma. Sleep disorder resolved. CARDIOVASCULAR: Hypertension, resolved. No reports of chest pain or heart attack. GASTROINTESTINAL: No reports of dumping syndrome. No reports of fatty food intolerance. Gastroesophageal reflux disease, resolved. Has diarrhea. MUSCULOSKELETAL: Has osteoarthritis of the hips, improved. Also no reports of bilateral lower extremity edema. GENITOURINARY: Has kidney stones. Has blood in urine. NEURO: No reports of stroke or seizure disorders. PSYCH: No reports of depression or suicidal ideation. HEMATOLOGIC: No reports of easy bruising or bleeding. Hematology evaluation demonstrated no past history of DVTs. PHYSICAL EXAM: VITAL SIGNS: 5 foot 4, 196 pounds. Body mass index 33.6 Vital Signs Temp 98.1 F 03/16/17 15:11 Pulse 74 03/16/17 15:11 Resp BP 132/85 03/16/17 15:11 Pulse Ox ABDOMEN: Soft, nondistended, nontender. Pannus extends over the pubis by 6 cm with hyperemia and rash consistent with panniculitis. No palpable incisional hernias. MUSCULOSKELETAL: No clubbing, cyanosis, or edema. CARDIOVASCULAR: Regular rate and rhythm. 2+ radial pulses. GENERAL: Well-developed female in no acute distress. HEENT: No scleral icterus. Extraocular movements grossly intact. Moist buccal mucosa. Hears conversational speech. NECK: Supple without lymphadenopathy. CHEST: Nonlabored respirations. Equal bilateral excursions. NEURO: No focal or lateralizing signs. Cranial nerves II through XII grossly within normal limits. PSYCH: Alert and oriented to person, place, and time. SKIN: Well perfused. Good skin turgor. LABS: Laboratory Last Values WBC 9.4 k/uL (3.8-10.6) 03/16/17 15:53 RBC 4.68 m/uL (3.80-5.40) 03/16/17 15:53 Hgb 13.9 gm/dL (11.4-16.0) 03/16/17 15:53 Hct 41.2 % (34.0-46.0) 03/16/17 15:53 MCV 88.1 fL (80.0-100.0) 03/16/17 15:53 MCH 29.7 pg (25.0-35.0) 03/16/17 15:53 MCHC 33.7 g/dL (31.0-37.0) 03/16/17 15:53 RDW 14.4 % (11.5-15.5) 03/16/17 15:53 Plt Count 289 k/uL (150-450) 03/16/17 15:53 PT 10.5 sec (9.0-12.0) 03/16/17 15:53 INR 1.0 (<1.2) 03/16/17 15:53 APTT 24.7 sec (22.0-30.0) 03/16/17 15:53 Sodium 140 mmol/L (137-145) 03/16/17 15:53 Potassium 4.0 mmol/L (3.5-5.1) 03/16/17 15:53 Chloride 105 mmol/L (98-107) 03/16/17 15:53 Carbon Dioxide 26 mmol/L (22-30) 03/16/17 15:53 Anion Gap 9 mmol/L 03/16/17 15:53 BUN 10 mg/dL (7-17) 03/16/17 15:53 Creatinine 0.60 mg/dL (0.52-1.04) 03/16/17 15:53 Est GFR (MDRD) Af Amer >60 (>60 ml/min/1.73 sqM) 03/16/17 15:53 Est GFR (MDRD) Non-Af >60 (>60 ml/min/1.73 sqM) 03/16/17 15:53 Glucose 83 mg/dL (74-99) 03/16/17 15:[address] Glu mg/dL 97 mg/dL 03/16/17 15:53 Hemoglobin A1c 5.0 % (4.2-6.1) 03/16/17 15:53 Calcium 9.1 mg/dL (8.4-10.2) 03/16/17 15:53 Phosphorus 4.0 mg/dL (2.5-4.5) 03/16/17 15:53 Magnesium 1.9 mg/dL (1.6-2.3) 03/16/17 15:53 Iron 33 ug/dL (50-170) L 03/16/17 15:53 TIBC 290 ug/dL (228-460) 03/16/17 15:53 Iron Saturation 11.38 (12.00-45.00) L 03/16/17 15:53 Ferritin 69.9 ng/mL (10.0-291.0) 03/16/17 15:53 Total Bilirubin 1.3 mg/dL (0.2-1.3) 03/16/17 15:53 AST 16 U/L (14-36) 03/16/17 15:53 ALT 32 U/L (9-52) 03/16/17 15:53 Alkaline Phosphatase 104 U/L (38-126) 03/16/17 15:53 Total Protein 6.3 g/dL (6.3-8.2) 03/16/17 15:53 Albumin 3.7 g/dL (3.5-5.0) 03/16/17 15:53 Prealbumin 21.0 mg/dL (18.0-42.0) 03/16/17 15:53 Triglycerides 111 mg/dL (<150) 03/16/17 15:53 Cholesterol 171 mg/dL (<200) 03/16/17 15:53 LDL Cholesterol, Calc 95 mg/dL (0-99) 03/16/17 15:53 HDL Cholesterol 54 mg/dL (40-60) 03/16/17 15:53 Vitamin A 46 ug/dL (38-106) 03/16/17 15:53 Vitamin B1 50 ug/L (38-122) 03/16/17 15:53 Vitamin B12 238 pg/mL (239-931) L 03/16/17 15:53 Vitamin D 25-Hydroxy 29.2 ng/mL (30.0-100.0) L 03/16/17 15:53 Folate 8.0 ng/mL 03/16/17 15:53 TSH 0.952 mIU/L (0.465-4.680) 03/16/17 15:53 PTH Intact 49.6 pg/mL (14.0-72.0) 03/16/17 15:53 Copper 1243 ug/L (810-1990) 03/16/17 15:53 Selenium 124 mcg/L (63-160) 03/16/17 15:53 Zinc 63 ug/dL (60-130) 03/16/17 15:53 ASSESSMENT: 1. Morbid obesity due to excess calories. 2. Body mass index reduced from 47.8 down to 33.6. 3. Dietary surveillance and counseling. 4. Gastroesophageal reflux disease, resolved. 5. Hypertensive heart disease without heart failure, resolved. 6. Osteoarthritis of the bilateral hips, improved. 7. Obstructive sleep apnea, resolved. 8. Hypertriglyceridemia, improved. 9. Hypercholesterolemia, resolved. 10. Vitamin D deficiency. 11. Status post gastric bypass. 12. Panniculitis. 13. Iron deficiency anemia due to inadequate intake. 14. Vitamin B12 deficiency. 15. Kidney stones PLAN: 1. She has completed a bariatric panel today. Findings include vitamin B12 deficiency and iron deficiency anemia. 2. Recommend adjustment of multivitamins to iron with MVI. 3. On exam, she has moderate-sized pannus with panniculitis. Prescription for Nystatin written. 4. She has moderate weight loss and alongside kidney stones. She is at risk for developing kidney stones as well. Recommend ultrasound of the right upper quadrant. 5. Recommend CT of the abdomen and pelvis with a history of abdominal pain including kidney stones.
== END | disposition home or self-care (01) ==
LOC: BARWHC3 14:42
PROVIDERS: ATTEND Surgery Plastic and Reconstructive Surgery
DX: Z48.815 Encounter for surgical aftercare following surgery on the digestive system (principal); E66.01 Morbid (severe) obesity due to excess calories; Z68.33 Body mass index [BMI] 33.0-33.9, adult; E55.9 Vitamin D deficiency, unspecified; M79.3 Panniculitis, unspecified; D50.9 Iron deficiency anemia, unspecified; E53.8 Deficiency of other specified B group vitamins; N20.0 Calculus of kidney; M16.0 Bilateral primary osteoarthritis of hip; E21.1 Secondary hyperparathyroidism, not elsewhere classified; K50.90 Crohn's disease, unspecified, without complications; K90.9 Intestinal malabsorption, unspecified; N19 Unspecified kidney failure; K76.9 Liver disease, unspecified; E89.1 Postprocedural hypoinsulinemia; Z88.5 Allergy status to narcotic agent; Z71.3 Dietary counseling and surveillance; Z79.899 Other long term (current) drug therapy; Z98.84 Bariatric surgery status
CPT/HCPCS: 36415; 80053; 80061; 82306; 82525; 82607; 82728; 82746; 83036; 83540; 83550; 83735; 83970; 84100; 84134; 84255; 84425; 84443; 84590; 84630; 85027; 85610; 85730; 99211

== ENCOUNTER → 2017-03-18 | Outpatient (CLI) | payer BC, OTHER ==
--- NOTE | 2017-03-18 16:11 | US ---
EXAMINATION TYPE: US abdomen limited DATE OF EXAM: 03/18/2017 COMPARISON: CT 2017 CLINICAL HISTORY: R10 Abdominal Pain R10.11 Right Upper Quad Pain. Patient denies RUQ pain, only c/o RLQ pain x 5 days and was told had right ureteral stone by CT done at [facility]; patien t concerned about hernia; gastric bypass surgery 2017 EXAM MEASUREMENTS: Liver Length: 16.3 cm Gallbladder Wall: 0.3 cm CBD: 0.2 cm Right Kidney: 11.9 x 5.3 x 4.8 cm Pancreas: wnl, tail obscured by overlying bowel gas Liver: focal fatty infiltrate at right lobe vs hemangioma = 1.9 x 1.5 x 1.6cm . Gallbladder: wnl Evidence for sonographic Russo's sign: No CBD: wnl Right Kidney: mild hydronephrosis and prominent renal calices are noted. At patient's area of pain at RLQ no hernia is seen at/above inguinal ligament with or without Valsalv a Maneuver. IMPRESSION: 1. No right lower quadrant inguinal hernia identified. 2. Mild right hydronephrosis some mild prominence of the calyces. 3. Possible hemangioma within the liver.
== END | disposition home or self-care (01) ==
LOC: RADUSWWP 12:11
PROVIDERS: ATTEND Surgery Plastic and Reconstructive Surgery
DX: N13.30 Unspecified hydronephrosis (principal)
CPT/HCPCS: 76705

== ENCOUNTER → 2017-06-08 | Outpatient (CLI) | payer BC, OTHER ==
[2017-06-08 14:51] VITALS: BP 140/103; PULSE 64; RESP 16; TEMP 98.1; BMI 31.6
--- NOTE | 2017-07-25 20:48 | P.PN ---
Subjective Progress Note Date: 06/08/17 over 15 pounds of skin.... 1 year... dai 100 pounds or 1 year out.. thighs...at a different time panniculectomy stuff.... get pictures DATE OF SERVICE: 06/08/2017 CHIEF COMPLAINT: Follow-up Jorden-en-Y gastric bypass. HISTORY OF PRESENT ILLNESS: Marci Singh is a 41-year-old female status post 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 She is 10 months out. At her height of 5 feet 4 inches, her ideal body weight is 144 pounds. Her highest weight was 278 pounds. She comes in weighing 184 pounds. She has lost 94 pounds. She has lost another 12 pounds in 3 months. Percent excess weight loss is 70 %. Her body mass index is reduced from 47.8 down to 31.6. She denies any abdominal pain. She does complain of severe panniculitis. She also complains of troubles with her thighs and skin. She now presents for further evaluation and management. No reports her nausea vomiting. No reports of dumping syndrome. PAST MEDICAL HISTORY: 1. Obstructive sleep apnea. 2. Hypertension. 3. Osteoarthritis of the bilateral hips. 4. Morbid obesity. 5. Postoperative nausea and vomiting. 6. Kidney stones. PAST SURGICAL HISTORY: 1. Hysterectomy. 2. Bladder suspension. 3. Left elbow surgery. 4. Tonsillectomy. 5. Laparoscopic gastric bypass. MEDICATIONS: 1. Iron. 2. Multivitamin. 3. [place]. ALLERGIES: CODEINE. SOCIAL HISTORY: Former tobacco use. FAMILY HISTORY: Denies any esophageal, stomach cancer. REVIEW OF SYSTEMS: CONSTITUTIONAL: At her height of 5 feet 4 inches, her ideal body weight is 144 pounds. Her highest weight was 278 pounds. She comes in weighing 184 pounds. She has lost 94 pounds. She has lost another 12 pounds in 3 months. Percent excess weight loss is 70%. Her body mass index is reduced from 47.8 down to 31.6. HEENT: No troubles with vision or hearing. No reports of dysphagia. ENDOCRINE: No reports of active diabetes or thyroid disorder. RESPIRATORY: She denies any dyspnea on exertion. No reports of asthma. Sleep disorder resolved. CARDIOVASCULAR: Hypertension, resolved. No reports of chest pain or heart attack. GASTROINTESTINAL: No reports of dumping syndrome. No reports of fatty food intolerance. Gastroesophageal reflux disease, resolved. Has diarrhea. MUSCULOSKELETAL: Has osteoarthritis of the hips, improved. Also no reports of bilateral lower extremity edema. GENITOURINARY: Has kidney stones. No UTI. NEURO: No reports of stroke or seizure disorders. PSYCH: No reports of depression or suicidal ideation. HEMATOLOGIC: No reports of easy bruising or bleeding. PHYSICAL EXAM: VITAL SIGNS: 5 foot 4, 184 pounds. Body mass index 31.6 Vital Signs Temp 98.1 F 06/08/17 14:48 Pulse 64 06/08/17 14:48 Resp 16 06/08/17 14:48 BP 140/103 06/08/17 14:48 Pulse Ox ABDOMEN: Soft, nondistended, nontender. Weight of pannus over 15 pounds. Moderate hyperemia. Pannus over pubis by 6 cm. MUSCULOSKELETAL: No clubbing, cyanosis, or edema. CARDIOVASCULAR: Regular rate and rhythm. 2+ radial pulses. GENERAL: Well-developed female in no acute distress. HEENT: No scleral icterus. Extraocular movements grossly intact. Moist buccal mucosa. Hears conversational speech. NECK: Supple without lymphadenopathy. CHEST: Nonlabored respirations. Equal bilateral excursions. NEURO: No focal or lateralizing signs. Cranial nerves II through XII grossly within normal limits. PSYCH: Alert and oriented to person, place, and time. SKIN: Well perfused. Good skin turgor. STUDIES: Ultrasound of the abdomen reviewed demonstrated no evidence of kidney stones. No evidence of inguinal hernia. LABS: Low iron. Iron deficiency anemia. Vitamin B12 deficiency. Vitamin D deficiency WBC 9.4 k/uL (3.8-10.6) 03/16/17 15:53 RBC 4.68 m/uL (3.80-5.40) 03/16/17 15:53 Hgb 13.9 gm/dL (11.4-16.0) 03/16/17 15:53 Hct 41.2 % (34.0-46.0) 03/16/17 15:53 MCV 88.1 fL (80.0-100.0) 03/16/17 15:53 MCH 29.7 pg (25.0-35.0) 03/16/17 15:53 MCHC 33.7 g/dL (31.0-37.0) 03/16/17 15:53 RDW 14.4 % (11.5-15.5) 03/16/17 15:53 Plt Count 289 k/uL (150-450) 03/16/17 15:53 PT 10.5 sec (9.0-12.0) 03/16/17 15:53 INR 1.0 (<1.2) 03/16/17 15:53 APTT 24.7 sec (22.0-30.0) 03/16/17 15:53 Sodium 140 mmol/L (137-145) 03/16/17 15:53 Potassium 4.0 mmol/L (3.5-5.1) 03/16/17 15:53 Chloride 105 mmol/L (98-107) 03/16/17 15:53 Carbon Dioxide 26 mmol/L (22-30) 03/16/17 15:53 Anion Gap 9 mmol/L 03/16/17 15:53 BUN 10 mg/dL (7-17) 03/16/17 15:53 Creatinine 0.60 mg/dL (0.52-1.04) 03/16/17 15:53 Est GFR (MDRD) Af Amer >60 (>60 ml/min/1.73 sqM) 03/16/17 15:53 Est GFR (MDRD) Non-Af >60 (>60 ml/min/1.73 sqM) 03/16/17 15:53 Glucose 83 mg/dL (74-99) 03/16/17 15:[address] Glu mg/dL 97 mg/dL 03/16/17 15:53 Hemoglobin A1c 5.0 % (4.2-6.1) 03/16/17 15:53 Calcium 9.1 mg/dL (8.4-10.2) 03/16/17 15:53 Phosphorus 4.0 mg/dL (2.5-4.5) 03/16/17 15:53 Magnesium 1.9 mg/dL (1.6-2.3) 03/16/17 15:53 Iron 33 ug/dL (50-170) L 03/16/17 15:53 TIBC 290 ug/dL (228-460) 03/16/17 15:53 Iron Saturation 11.38 (12.00-45.00) L 03/16/17 15:53 Ferritin 69.9 ng/mL (10.0-291.0) 03/16/17 15:53 Total Bilirubin 1.3 mg/dL (0.2-1.3) 03/16/17 15:53 AST 16 U/L (14-36) 03/16/17 15:53 ALT 32 U/L (9-52) 03/16/17 15:53 Alkaline Phosphatase 104 U/L (38-126) 03/16/17 15:53 Total Protein 6.3 g/dL (6.3-8.2) 03/16/17 15:53 Albumin 3.7 g/dL (3.5-5.0) 03/16/17 15:53 Prealbumin 21.0 mg/dL (18.0-42.0) 03/16/17 15:53 Triglycerides 111 mg/dL (<150) 03/16/17 15:53 Cholesterol 171 mg/dL (<200) 03/16/17 15:53 LDL Cholesterol, Calc 95 mg/dL (0-99) 03/16/17 15:53 HDL Cholesterol 54 mg/dL (40-60) 03/16/17 15:53 Vitamin A 46 ug/dL (38-106) 03/16/17 15:53 Vitamin B1 50 ug/L (38-122) 03/16/17 15:53 Vitamin B12 238 pg/mL (239-931) L 03/16/17 15:53 Vitamin D 25-Hydroxy 29.2 ng/mL (30.0-100.0) L 03/16/17 15:53 Folate 8.0 ng/mL 03/16/17 15:53 TSH 0.952 mIU/L (0.465-4.680) 03/16/17 15:53 PTH Intact 49.6 pg/mL (14.0-72.0) 03/16/17 15:53 Copper 1243 ug/L (810-1990) 03/16/17 15:53 Selenium 124 mcg/L (63-160) 03/16/17 15:53 Zinc 63 ug/dL (60-130) 03/16/17 15:53 ASSESSMENT: 1. Morbid obesity due to excess calories. 2. Body mass index reduced from 47.8 down to 31.6. 3. Status post gastric bypass. 4. Vitamin D deficiency. 5. Panniculitis. 6. Iron deficiency anemia due to inadequate intake. 7. Vitamin B12 deficiency. PLAN: 1. On exam, she has a moderate-sized pannus with panniculitis. Continue with Nystatin. She is almost 1 year out. Will need at least 100 pound weight loss. 2. Labs were reviewed demonstrating iron deficiency anemia. Recommend iron infusion as well as vitamin B12 intramuscular injection. 3. Vitamin D supplement advised. 4. She has additional concerns regarding the redundant skin on her thighs. She is aware this is primarily cosmetic. 5. Follow-up in the [facility]ariatric Center one year post procedure otherwise, July 2017. Objective - Vital Signs Vital signs: Vital Signs Temp 98.1 F 06/08/17 14:48 Pulse 64 06/08/17 14:48 Resp 16 06/08/17 14:48 BP 140/103 06/08/17 14:48 Pulse Ox Intake & Output 06/07/17 06/08/17 06/08/17 18:59 06:59 18:59 Weight 83.461 kg
== END | disposition home or self-care (01) ==
LOC: BARWHC3 14:05
PROVIDERS: ATTEND Surgery Plastic and Reconstructive Surgery
DX: Z48.815 Encounter for surgical aftercare following surgery on the digestive system (principal); E66.01 Morbid (severe) obesity due to excess calories; E55.9 Vitamin D deficiency, unspecified; M79.3 Panniculitis, unspecified; I10 Essential (primary) hypertension; M16.0 Bilateral primary osteoarthritis of hip; E53.8 Deficiency of other specified B group vitamins; D50.8 Other iron deficiency anemias; Z79.891 Long term (current) use of opiate analgesic; Z88.5 Allergy status to narcotic agent; Z87.891 Personal history of nicotine dependence; Z68.31 Body mass index [BMI] 31.0-31.9, adult; Z87.442 Personal history of urinary calculi; Z98.84 Bariatric surgery status
CPT/HCPCS: 99211

== ENCOUNTER → 2017-07-13 | Outpatient (CLI) | payer BC, OTHER ==
[2017-07-13 14:47] VITALS: BP 139/86; PULSE 66; TEMP 98.4; BMI 31.3
[2017-07-13 16:33] LABS: HCT 46.8 % (34.0-46.0); MCH 28.8 pg (25.0-35.0); Mean Platelet Volume 7.4; Platelet Count 257 k/uL (150-450); RDW 15.2 % (11.5-15.5); WBC 11.5 k/uL (3.8-10.6)
[2017-07-13 16:44] LABS: Partial Thromboplastin Time 24.4 sec (22.0-30.0)
[2017-07-13 16:50] LABS: ALT 37 U/L (9-52); AST 20 U/L (14-36); Albumin 3.9 g/dL (3.5-5.0); Alkaline Phosphatase 84 U/L (38-126); Anion Gap 12 mmol/L; Blood Urea Nitrogen 15 mg/dL (7-17); Calcium 9.6 mg/dL (8.4-10.2); Carbon Dioxide 29 mmol/L (22-30); Chloride 101 mmol/L (98-107); Cholesterol 175 mg/dL (<200); Glucose 79 mg/dL (74-99); HDL Cholesterol 56 mg/dL (40-60); LDL Cholesterol,Calculated 95 mg/dL (0-99); Phosphorus 4.5 mg/dL (2.5-4.5); Potassium 3.9 mmol/L (3.5-5.1); Sodium 142 mmol/L (137-145); Total Bilirubin 1.5 mg/dL (0.2-1.3); Total Protein 6.6 g/dL (6.3-8.2); Triglycerides 120 mg/dL (<150)
[2017-07-14 01:23] LABS: Iron Saturation 11.49 (12.00-45.00)
[2017-07-14 01:32] LABS: Vitamin D 25 Hydroxy 22.9 ng/mL (30.0-100.0)
[2017-07-14 01:33] LABS: Folate, Serum 13.8 ng/mL
[2017-07-14 02:35] LABS: Hemoglobin A1C 4.8 % (4.0-6.0)
[2017-07-14 11:25] LABS: Zinc, Serum 66 ug/dL (60-130)
[2017-07-15 05:34] LABS: Vitamin B1 58 ug/L (38-122)
[2017-07-15 06:45] LABS: Vitamin A 45 ug/dL (38-106)
[2017-07-15 17:40] LABS: Selenium 132 mcg/L (63-160)
--- NOTE | 2017-08-27 23:17 | P.PN ---
Subjective Progress Note Date: 07/13/17 DATE OF SERVICE: 07/13/2017 CHIEF COMPLAINT: Follow-up Jorden-en-Y gastric bypass. HISTORY OF PRESENT ILLNESS: Marci Singh is a 42-year-old female status post 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 She is 11 months out. At her height of 5 feet 4 inches, her ideal body weight is 144 pounds. Her highest weight was 278 pounds. She comes in weighing 182 pounds. She has lost 96 pounds. She has lost another 1 pound in 1 month. Percent excess weight loss is 71 %. Her body mass index is reduced from 47.8 down to 31.3. She reports chronic skin infections from panniculitis. She has been used to stent pouter for over a year with minimal improvement of her symptoms. She reports burning recurrent ulcers which causes moderate pain and affects her activities of daily living. 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 PAST MEDICAL HISTORY: 1. Obstructive sleep apnea. 2. Hypertension. 3. Osteoarthritis of the bilateral hips. 4. Morbid obesity. 5. Postoperative nausea and vomiting. 6. Kidney stones. PAST SURGICAL HISTORY: 1. Hysterectomy. 2. Bladder suspension. 3. Left elbow surgery. 4. Tonsillectomy. 5. Laparoscopic gastric bypass. MEDICATIONS: 1. Iron. 2. Multivitamin. 3. [place]. ALLERGIES: CODEINE. SOCIAL HISTORY: Former tobacco use. FAMILY HISTORY: Denies any esophageal, stomach cancer. REVIEW OF SYSTEMS: CONSTITUTIONAL: At her height of 5 feet 4 inches, her ideal body weight is 144 pounds. Her highest weight was 278 pounds. She comes in weighing 182 pounds. She has lost 96 pounds. She has lost another 1 pounds in 1 months. Percent excess weight loss is 71%. Her body mass index is reduced from 47.8 down to 31.3. HEENT: No troubles with vision or hearing. No reports of dysphagia. ENDOCRINE: No reports of active diabetes or thyroid disorder. RESPIRATORY: She denies any dyspnea on exertion. No reports of asthma. Sleep disorder resolved. CARDIOVASCULAR: Hypertension, resolved. No reports of chest pain or heart attack. GASTROINTESTINAL: No reports of dumping syndrome. No reports of fatty food intolerance. Gastroesophageal reflux disease, resolved. Has diarrhea. MUSCULOSKELETAL: Has osteoarthritis of the hips, improved. Also no reports of bilateral lower extremity edema. GENITOURINARY: Has kidney stones. No UTI. NEURO: No reports of stroke or seizure disorders. PSYCH: No reports of depression or suicidal ideation. HEMATOLOGIC: No reports of easy bruising or bleeding. SKIN: Has severe recurrent panniculitis. PHYSICAL EXAM: VITAL SIGNS: 5 foot 4, 182 pounds. Body mass index 31.3 Vital Signs Temp 98.4 F 07/13/17 15:00 Pulse 66 07/13/17 15:00 Resp BP 139/86 07/13/17 15:00 Pulse Ox ABDOMEN: Soft, nondistended, nontender. Weight of pannus over 10 pounds. Moderate hyperemia. Pannus over pubis by 6 cm. has ulcers along the skin crease of the abdomen. No incisional hernias at bariatric sites. MUSCULOSKELETAL: No clubbing, cyanosis, or edema. CARDIOVASCULAR: Regular rate and rhythm. 2+ radial pulses. GENERAL: Well-developed female in no acute distress. HEENT: No scleral icterus. Extraocular movements grossly intact. Moist buccal mucosa. Hears conversational speech. NECK: Supple without lymphadenopathy. CHEST: Nonlabored respirations. Equal bilateral excursions. NEURO: No focal or lateralizing signs. Cranial nerves II through XII grossly within normal limits. PSYCH: Alert and oriented to person, place, and time. SKIN: Well perfused. Good skin turgor. ASSESSMENT: 1. Morbid obesity due to excess calories. 2. Body mass index reduced from 47.8 down to 31.3. 3. Status post gastric bypass. 4. Vitamin D deficiency. 5. Panniculitis. 6. Iron deficiency anemia due to inadequate intake. 7. Vitamin B12 deficiency. PLAN: 1. Recommend recheck of bariatric panel. 2. She has severe panniculitis and will continue nystatin powder. As her weight loss become stable, recommend evaluation for panniculectomy. 3. Recommend photographic images of pannus. 4. [facility] performed for sawing and assembly supervisor. Laboratory Last Values WBC 11.5 k/uL (3.8-10.6) H 07/13/17 16:16 RBC 5.20 m/uL (3.80-5.40) 07/13/17 16:16 Hgb 15.0 gm/dL (11.4-16.0) 07/13/17 16:16 Hct 46.8 % (34.0-46.0) H 07/13/17 16:16 MCV 90.0 fL (80.0-100.0) 07/13/17 16:16 MCH 28.8 pg (25.0-35.0) 07/13/17 16:16 MCHC 32.0 g/dL (31.0-37.0) 07/13/17 16:16 RDW 15.2 % (11.5-15.5) 07/13/17 16:16 Plt Count 257 k/uL (150-450) 07/13/17 16:16 PT 10.0 sec (9.0-12.0) 07/13/17 16:16 INR 1.0 (<1.2) 07/13/17 16:16 APTT 24.4 sec (22.0-30.0) 07/13/17 16:16 Sodium 142 mmol/L (137-145) 07/13/17 16:16 Potassium 3.9 mmol/L (3.5-5.1) 07/13/17 16:16 Chloride 101 mmol/L (98-107) 07/13/17 16:16 Carbon Dioxide 29 mmol/L (22-30) 07/13/17 16:16 Anion Gap 12 mmol/L 07/13/17 16:16 BUN 15 mg/dL (7-17) 07/13/17 16:16 Creatinine 0.70 mg/dL (0.52-1.04) 07/13/17 16:16 Est GFR (MDRD) Af Amer >60 (>60 ml/min/1.73 sqM) 07/13/17 16:16 Est GFR (MDRD) Non-Af >60 (>60 ml/min/1.73 sqM) 07/13/17 16:16 Glucose 79 mg/dL (74-99) 07/13/17 16:[address] Glu mg/dL 91 07/13/17 16:16 Hemoglobin A1c 4.8 % (4.0-6.0) 07/13/17 16:16 Calcium 9.6 mg/dL (8.4-10.2) 07/13/17 16:16 Phosphorus 4.5 mg/dL (2.5-4.5) 07/13/17 16:16 Magnesium 2.0 mg/dL (1.6-2.3) 07/13/17 16:16 Iron 34 ug/dL (50-170) L 07/13/17 16:16 TIBC 296 ug/dL (228-460) 07/13/17 16:16 Iron Saturation 11.49 (12.00-45.00) L 07/13/17 16:16 Ferritin 378.7 ng/mL (10.0-291.0) H 07/13/17 16:16 Total Bilirubin 1.5 mg/dL (0.2-1.3) H 07/13/17 16:16 AST 20 U/L (14-36) 07/13/17 16:16 ALT 37 U/L (9-52) 07/13/17 16:16 Alkaline Phosphatase 84 U/L (38-126) 07/13/17 16:16 Total Protein 6.6 g/dL (6.3-8.2) 07/13/17 16:16 Albumin 3.9 g/dL (3.5-5.0) 07/13/17 16:16 Prealbumin 23.0 mg/dL (18.0-42.0) 07/13/17 16:16 Triglycerides 120 mg/dL (<150) 07/13/17 16:16 Cholesterol 175 mg/dL (<200) 07/13/17 16:16 LDL Cholesterol, Calc 95 mg/dL (0-99) 07/13/17 16:16 HDL Cholesterol 56 mg/dL (40-60) 07/13/17 16:16 Vitamin A 45 ug/dL (38-106) 07/13/17 16:16 Vitamin B1 58 ug/L (38-122) 07/13/17 16:16 Vitamin B12 364.0 pg/mL (200.0-944.0) 07/13/17 16:16 Vitamin D 25-Hydroxy 22.9 ng/mL (30.0-100.0) L 07/13/17 16:16 Folate 13.8 ng/mL 07/13/17 16:16 TSH 1.150 mIU/L (0.465-4.680) 07/13/17 16:16 PTH Intact 32.0 pg/mL (14.0-72.0) 07/13/17 16:16 Copper 1487 ug/L (810-1990) 07/13/17 16:16 Selenium 132 mcg/L (63-160) 07/13/17 16:16 Zinc 66 ug/dL (60-130) 07/13/17 16:16 Iron is low. Vitamin D low. Recommend vitamin D supplement and iron infusion. Objective - Vital Signs Vital signs: Vital Signs Temp 98.4 F 07/13/17 14:44 Pulse 66 07/13/17 14:44 Resp BP 139/86 07/13/17 14:44 Pulse Ox Intake & Output 07/12/17 07/13/17 07/13/17 18:59 06:59 18:59 Weight 82.826 kg - Labs CBC & Chem 7: 07/13/17 16:16 07/13/17 16:16
== END | disposition home or self-care (01) ==
LOC: BARWHC3 14:00
PROVIDERS: ATTEND Surgery Plastic and Reconstructive Surgery
DX: E21.1 Secondary hyperparathyroidism, not elsewhere classified (principal); E89.1 Postprocedural hypoinsulinemia; D50.9 Iron deficiency anemia, unspecified; K90.9 Intestinal malabsorption, unspecified; E44.0 Moderate protein-calorie malnutrition; E55.9 Vitamin D deficiency, unspecified; K74.1 Hepatic sclerosis; N19 Unspecified kidney failure; K50.90 Crohn's disease, unspecified, without complications; E66.01 Morbid (severe) obesity due to excess calories
CPT/HCPCS: 36415; 80053; 80061; 82306; 82525; 82607; 82728; 82746; 83036; 83540; 83550; 83735; 83970; 84100; 84134; 84255; 84425; 84443; 84590; 84630; 85027; 85610; 85730; 97803; 99211

== ENCOUNTER → 2017-07-27 | Outpatient (CLI) | payer BC, OTHER ==
--- NOTE | 2017-07-27 12:25 | WWHP ---
[facility] - HISTORY AND PHYSICAL DATE OF SERVICE: 07/27/2017 CHIEF COMPLAINT: The patient is here for her routine gynecologic exam and mammogram. HPI: This is a 42-year-old, G2, P2, with an LMP of 2008. She is status post vaginal hysterectomy for benign reasons. The patient states it has been about 8 years since her last pelvic exam. She has noticed a vaginal discharge since about 06/08/2017. She describes it as a clear mucousy discharge with odor. She has had bacterial vaginosis in the past. She is also concerned about some small lumps she has noticed on each side of the vaginal opening. She is wondering if she has labial warts. She has also noticed pruritus at the area of these small lumps. She was given a prescription for Diflucan because of the vaginal discharge, but this did not help. The patient has been experiencing pruritus in the area of the small vulvar lumps. PAST MEDICAL HISTORY: She was told she has some type of fatty liver in the past; also history of kidney stones. MEDICATIONS: No prescription medications. She does take several supplements and vitamins including iron, magnesium, vitamin D3, calcium, and a vitamin B12 medication. ALLERGIES: Allergies to CODEINE, which caused hives. PAST SURGICAL HISTORY: Vaginal hysterectomy with bladder suspension in 2008, bariatric gastric bypass on 08/16/16, multiple elbow surgeries in 2014 and 2015, umbilical hernia repair 2009 and she had tonsillectomy at approximately age 13. PAST OB HISTORY: Two vaginal deliveries. 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 She has no history of STDs. SOCIAL HISTORY: She denies tobacco and drug use and has about 3 to 4 alcohol-containing drinks per month. She was in 2013 and has had a boyfriend since 2013. She lives in his house, but he works out of state. 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 FAMILY HISTORY: A great aunt had dementia and a great grandmother had gastric cancer. REVIEW OF SYSTEMS: She has lost approximately 90 pounds since her gastric bypass surgery 1 year ago. She denies respiratory, cardiac or GI problems. PHYSICAL EXAM: Blood pressure 126/75, height 5 feet 4 inches, weight 185 pounds, temperature 97.5, pulse 68. This is a well-developed, well-nourished, white female, who is alert and oriented x3, in no acute distress. HEENT is within normal limits. NECK: Supple without mass or thyromegaly. CHEST AND LUNGS: Clear to auscultation. HEART: Regular rate and rhythm. Breasts are without mass or discharge. Axillary exam is negative for adenopathy. BACK: Negative for CVA tenderness. ABDOMEN: Soft, nontender, without palpable masses. PELVIC EXAM: External genitalia appears grossly normal. The genital region is completely shaved. The patient was able to demonstrate the vulvar lump that she was feeling on the right side. This is in the mid labia majora without visible skin findings on inspection. The mass measures approximately 3 mm and is round and smooth, consistent with a small labial inclusion cyst. She was not able to demonstrate the lump on the left side. No gross genital warts are noted. The external genitalia is grossly normal to inspection. Vagina reveals [id number] amount of thin grayish discharge with slight odor. There are no focal lesions. There is no significant prolapse. Bimanual exam is negative for mass or tenderness. Rectal exam is negative for mass or tenderness and is negative for occult blood. EXTREMITIES: Nontender. Saline and KYLE wet migdalia reveal clue cells but is negative for Trichomonas or hyphae. IMPRESSION: 1. A 42-year-old female who is status post vaginal hysterectomy for benign reasons. 2. Vaginal discharge consistent with bacterial vaginosis. 3. Benign small labial inclusion cyst and this does not appear to be condyloma. 4. Vulvar pruritus in the area of the inclusion cyst. PLAN: 1. Pap smears have been discontinued. 2. Self breast examination was discussed. 3. Baseline screening mammogram will be done today. 4. Metronidazole 500 mg b.i.d. x7 days. The patient was instructed to avoid alcohol while she is taking this medication. 5. GC and chlamydia testing from the vagina was obtained because of the vaginal discharge. 6. At this time, the patient was reassured about the small inclusion cyst noted on exam. She was given a prescription for Kenalog 0.1% cream, which she will use b.i.d. p.r.n. for vulvar pruritus. She will let me know if she is noticing changes with the small inclusion cysts and she will return for evaluation if that is the case. 7. She will return in one year and p.r.n. EMIR / CAMILA: [id number] /
--- NOTE | 2017-07-27 13:22 | MM ---
Reason for exam: screening (asymptomatic). Baseline mammogram. Physical Findings: Dr. Osorio did not find any significant physical abnormalities on exam. MG 3D Screening Mammo W/Cad Bilateral CC and MLO view(s) were taken. There are scattered fibroglandular densities. Right upper outer quadrant focal asymmetry incompletely disperses on 3D images. These results were verbally communicated with the patient and result sheet given to the patient on 07/27/17. ASSESSMENT: Incomplete: need additional imaging evaluation, BI-RAD 0 RECOMMENDATION: Special view mammogram of the right breast. If lesion persists on supplemental views, image directed ultrasound is recommended. [facility] will attempt to contact patient to return for supplemental views and ultrasound if indicated.
--- NOTE | 2017-07-27 13:24 | MM ---
Reason for exam: additional evaluation requested from abnormal screening. Physical Findings: Breast exam preformed at baseline screening. MG 3D Work Up W/Cad RT Spot compression CC, spot compression MLO, and ML view(s) were taken of the right breast. There are scattered fibroglandular densities. On one of the spot 3D CC views, the nodular asymmetry persists. No correlation seen on either 3D spot MLO or 3D lateral. These results were verbally communicated with the patient and result sheet given to the patient on 07/27/17. ASSESSMENT: Incomplete: need additional imaging evaluation, BI-RAD 0 RECOMMENDATION: Ultrasound of the right breast. (upper outer quadrant)
--- NOTE | 2017-07-27 13:26 | USB ---
Reason for exam: additional evaluation requested from abnormal screening. US Breast Workup Limited RT Right breast ultrasound demonstrates a 5 x 3 x 8mm oval, mixed lesion at 10 o'clock, 6 month follow up recommended. This correlates well with the mammographic finding. These results were verbally communicated with the patient and result sheet given to the patient on 07/27/17. ASSESSMENT: Probably benign, BI-RAD 3 RECOMMENDATION: Follow-up diagnostic mammogram and ultrasound of the right breast in 6 months. (10 o'clock)
[2017-07-28 14:52] LABS: C. trachomatis,PCR Negative (Neg,Equiv); Chlamydia trachomatis Source Vagina; N. gonorrhoeae,PCR Negative (Neg,Equiv); Neisseria Source Vagina
== END | disposition home or self-care (01) ==
LOC: WWCWWP 09:23
PROVIDERS: ATTEND Surgery Plastic and Reconstructive Surgery
DX: Z12.31 Encounter for screening mammogram for malignant neoplasm of breast (principal); R92.8 Other abnormal and inconclusive findings on diagnostic imaging of breast; Z11.3 Encounter for screening for infections with a predominantly sexual mode of transmission; N89.8 Other specified noninflammatory disorders of vagina
CPT/HCPCS: 87491; 87591; 77067; 77065; 77063; 76642; G0279

== ENCOUNTER → 2017-08-17 | Outpatient (CLI) | payer BC, OTHER ==
[2017-08-17 15:36] VITALS: BP 127/81; PULSE 63; RESP 16; TEMP 98.4; BMI 31.1
--- NOTE | 2017-08-27 23:25 | P.PN ---
Subjective Progress Note Date: 08/17/17 DATE OF SERVICE: 08/17/2017 CHIEF COMPLAINT: Follow-up Jorden-en-Y gastric bypass. HISTORY OF PRESENT ILLNESS: Marci iSngh is a 42-year-old female status post 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 She is 1 year out. At her height of 5 feet 4 inches, her ideal body weight is 144 pounds. Her highest weight was 278 pounds. She comes in weighing 181 pounds. She has lost 97 pounds. She has lost another 1 pound in 1 month. Percent excess weight loss is 73 %. Her body mass index is reduced from 47.8 down to 31.1. She has followed with a civil preparedness officer. 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 Her main goal is to get down to at least another 5 pound weight loss. No reports of abdominal pain. Other concern includes an abnormal mammogram and breast ultrasound. PAST MEDICAL HISTORY: 1. Obstructive sleep apnea. 2. Hypertension. 3. Osteoarthritis of the bilateral hips. 4. Morbid obesity. 5. Postoperative nausea and vomiting. 6. Kidney stones. 7. Panniculitis. PAST SURGICAL HISTORY: 1. Hysterectomy. 2. Bladder suspension. 3. Left elbow surgery. 4. Tonsillectomy. 5. Laparoscopic gastric bypass. MEDICATIONS: 1. Iron. 2. Multivitamin. 3. [place]. ALLERGIES: CODEINE. SOCIAL HISTORY: Former tobacco use. FAMILY HISTORY: Denies any esophageal, stomach cancer. REVIEW OF SYSTEMS: CONSTITUTIONAL: At her height of 5 feet 4 inches, her ideal body weight is 144 pounds. Her highest weight was 278 pounds. She comes in weighing 181 pounds. She has lost 97 pounds. She has lost another 1 pounds in 1 months. Percent excess weight loss is 73%. Her body mass index is reduced from 47.8 down to 31.1. HEENT: No troubles with vision or hearing. No reports of dysphagia. ENDOCRINE: No reports of active diabetes or thyroid disorder. RESPIRATORY: She denies any dyspnea on exertion. No reports of asthma. Sleep disorder resolved. CARDIOVASCULAR: Hypertension, resolved. No reports of chest pain or heart attack. GASTROINTESTINAL: No reports of dumping syndrome. No reports of fatty food intolerance. Gastroesophageal reflux disease, resolved. Has diarrhea. MUSCULOSKELETAL: Has osteoarthritis of the hips, improved. Also no reports of bilateral lower extremity edema. GENITOURINARY: Has kidney stones. No UTI. NEURO: No reports of stroke or seizure disorders. PSYCH: No reports of depression or suicidal ideation. HEMATOLOGIC: No reports of easy bruising or bleeding. SKIN: Has severe recurrent panniculitis. PHYSICAL EXAM: VITAL SIGNS: 5 foot 4, 181 pounds. Body mass index 31.1 Vital Signs Temp 98.4 F 08/17/17 16:00 Pulse 63 08/17/17 16:00 Resp 16 08/17/17 16:00 BP 127/81 08/17/17 16:00 Pulse Ox ABDOMEN: Soft, nondistended, nontender. No incisional hernias at bariatric sites. MUSCULOSKELETAL: No clubbing, cyanosis, or edema. CARDIOVASCULAR: Regular rate and rhythm. 2+ radial pulses. GENERAL: Well-developed female in no acute distress. HEENT: No scleral icterus. Extraocular movements grossly intact. Moist buccal mucosa. Hears conversational speech. NECK: Supple without lymphadenopathy. CHEST: Nonlabored respirations. Equal bilateral excursions. NEURO: No focal or lateralizing signs. Cranial nerves II through XII grossly within normal limits. PSYCH: Alert and oriented to person, place, and time. SKIN: Well perfused. Good skin turgor. Pannus over 15 pound weight. Pannus hangs over her pubis. Has hyperemia with panniculitis. Laboratory Last Values WBC 11.5 k/uL (3.8-10.6) H 07/13/17 16:16 RBC 5.20 m/uL (3.80-5.40) 07/13/17 16:16 Hgb 15.0 gm/dL (11.4-16.0) 07/13/17 16:16 Hct 46.8 % (34.0-46.0) H 07/13/17 16:16 MCV 90.0 fL (80.0-100.0) 07/13/17 16:16 MCH 28.8 pg (25.0-35.0) 07/13/17 16:16 MCHC 32.0 g/dL (31.0-37.0) 07/13/17 16:16 RDW 15.2 % (11.5-15.5) 07/13/17 16:16 Plt Count 257 k/uL (150-450) 07/13/17 16:16 PT 10.0 sec (9.0-12.0) 07/13/17 16:16 INR 1.0 (<1.2) 07/13/17 16:16 APTT 24.4 sec (22.0-30.0) 07/13/17 16:16 Sodium 142 mmol/L (137-145) 07/13/17 16:16 Potassium 3.9 mmol/L (3.5-5.1) 07/13/17 16:16 Chloride 101 mmol/L (98-107) 07/13/17 16:16 Carbon Dioxide 29 mmol/L (22-30) 07/13/17 16:16 Anion Gap 12 mmol/L 07/13/17 16:16 BUN 15 mg/dL (7-17) 07/13/17 16:16 Creatinine 0.70 mg/dL (0.52-1.04) 07/13/17 16:16 Est GFR (MDRD) Af Amer >60 (>60 ml/min/1.73 sqM) 07/13/17 16:16 Est GFR (MDRD) Non-Af >60 (>60 ml/min/1.73 sqM) 07/13/17 16:16 Glucose 79 mg/dL (74-99) 07/13/17 16:[address] Glu mg/dL 91 07/13/17 16:16 Hemoglobin A1c 4.8 % (4.0-6.0) 07/13/17 16:16 Calcium 9.6 mg/dL (8.4-10.2) 07/13/17 16:16 Phosphorus 4.5 mg/dL (2.5-4.5) 07/13/17 16:16 Magnesium 2.0 mg/dL (1.6-2.3) 07/13/17 16:16 Iron 34 ug/dL (50-170) L 07/13/17 16:16 TIBC 296 ug/dL (228-460) 07/13/17 16:16 Iron Saturation 11.49 (12.00-45.00) L 07/13/17 16:16 Ferritin 378.7 ng/mL (10.0-291.0) H 07/13/17 16:16 Total Bilirubin 1.5 mg/dL (0.2-1.3) H 07/13/17 16:16 AST 20 U/L (14-36) 07/13/17 16:16 ALT 37 U/L (9-52) 07/13/17 16:16 Alkaline Phosphatase 84 U/L (38-126) 07/13/17 16:16 Total Protein 6.6 g/dL (6.3-8.2) 07/13/17 16:16 Albumin 3.9 g/dL (3.5-5.0) 07/13/17 16:16 Prealbumin 23.0 mg/dL (18.0-42.0) 07/13/17 16:16 Triglycerides 120 mg/dL (<150) 07/13/17 16:16 Cholesterol 175 mg/dL (<200) 07/13/17 16:16 LDL Cholesterol, Calc 95 mg/dL (0-99) 07/13/17 16:16 HDL Cholesterol 56 mg/dL (40-60) 07/13/17 16:16 Vitamin A 45 ug/dL (38-106) 07/13/17 16:16 Vitamin B1 58 ug/L (38-122) 07/13/17 16:16 Vitamin B12 364.0 pg/mL (200.0-944.0) 07/13/17 16:16 Vitamin D 25-Hydroxy 22.9 ng/mL (30.0-100.0) L 07/13/17 16:16 Folate 13.8 ng/mL 07/13/17 16:16 TSH 1.150 mIU/L (0.465-4.680) 07/13/17 16:16 PTH Intact 32.0 pg/mL (14.0-72.0) 07/13/17 16:16 Copper 1487 ug/L (810-1990) 07/13/17 16:16 Selenium 132 mcg/L (63-160) 07/13/17 16:16 Zinc 66 ug/dL (60-130) 07/13/17 16:16 Iron is low. Vitamin D low. ASSESSMENT: 1. Morbid obesity due to excess calories. 2. Body mass index reduced from 47.8 down to 31.1. 3. Status post gastric bypass. 4. Vitamin D deficiency. 5. Iron deficiency anemia due to inadequate intake. 6. Panniculitis. 7. Dietary surveillance and counseling. PLAN: 1. Recommend iron supplement and iron infusions. 2. Also recommend ultrasound biopsy of abnormal breast mass. 3. Recommend 2 week high-protein low caloric diet for dietary surveillance and counseling. 4. Recommend follow-up in 1-2 months. 5. Continue multivitamin including vitamin D and iron supplement. Objective - Vital Signs Vital signs: Vital Signs Temp 98.4 F 08/17/17 15:33 Pulse 63 08/17/17 15:33 Resp 16 08/17/17 15:33 BP 127/81 08/17/17 15:33 Pulse Ox Intake & Output 08/16/17 08/17/17 08/17/17 18:59 06:59 18:59 Weight 82.146 kg
== END | disposition home or self-care (01) ==
LOC: BARWHC3 14:25
PROVIDERS: ATTEND Surgery Plastic and Reconstructive Surgery
DX: E66.01 Morbid (severe) obesity due to excess calories (principal); E55.9 Vitamin D deficiency, unspecified; D50.9 Iron deficiency anemia, unspecified; M79.3 Panniculitis, unspecified; Z71.3 Dietary counseling and surveillance; Z87.891 Personal history of nicotine dependence; Z88.5 Allergy status to narcotic agent; Z98.84 Bariatric surgery status; Z68.31 Body mass index [BMI] 31.0-31.9, adult
CPT/HCPCS: 97803; 99211

== ENCOUNTER → 2017-08-26 | Outpatient (CLI) | payer BC, OTHER ==
[2017-08-26 11:11] LABS: ALT 25 U/L (9-52); AST 16 U/L (14-36); Albumin 3.9 g/dL (3.5-5.0); Alkaline Phosphatase 86 U/L (38-126); Anion Gap 10 mmol/L; Blood Urea Nitrogen 13 mg/dL (7-17); Calcium 9.5 mg/dL (8.4-10.2); Carbon Dioxide 30 mmol/L (22-30); Chloride 104 mmol/L (98-107); Glucose 84 mg/dL (74-99); Potassium 4.4 mmol/L (3.5-5.1); Sodium 144 mmol/L (137-145); Total Bilirubin 1.3 mg/dL (0.2-1.3); Total Protein 6.6 g/dL (6.3-8.2)
== END | disposition home or self-care (01) ==
LOC: LABWHC1 10:02
PROVIDERS: ATTEND Obstetrics & Gynecology
DX: O92.6 Galactorrhea (principal); E22.1 Hyperprolactinemia
CPT/HCPCS: 36415; 80053; 84146; 84443

== ENCOUNTER → 2017-08-31 | Day surgery (SDC) | payer BC, OTHER ==
[2017-08-31 11:29] VITALS: RESP 12
[2017-08-31 12:20] VITALS: BP 123/70; PULSE 73; TEMP 98.4
--- NOTE | 2017-08-31 13:50 | USB ---
EXAMINATION TYPE: US discontinued breast bx RT DATE OF EXAM: 08/31/2017 COMPARISON: NONE INDICATION: R92.8 ABNORMAL MAMMOGRAM. Real-time linear array sonography is performed over the right breast with attention to the upper oute r quadrant. There is a tiny hypodensity at the 10:00 position too small classify. This is not the shanda e location as the previous abnormality and likely is a cyst too small to classify reliably. This isa ures 0.2 cm in size. The previous hypoechoic anechoic area at the 10:00 position is not identified. Real-time observation was performed. No suspicious structure for correlation is evident. No suspicious solid masses are ramone dent. In the absence of a lesion which could be targeted by ultrasound, the procedure was terminated prior to skin incision. IMPRESSION: 1. Probably benign findings. 2. BI-RADS 3 Recommendations: 1. Follow-up right breast ultrasound 6 months.
== END ==
LOC: RADUSWWP 11:03
PROVIDERS: ATTEND Surgery Plastic and Reconstructive Surgery
DX: R92.8 Other abnormal and inconclusive findings on diagnostic imaging of breast (principal); Z53.8 Procedure and treatment not carried out for other reasons

== ENCOUNTER → 2017-09-07 | Outpatient (CLI) | payer BC, OTHER ==
[2017-09-07 17:38] VITALS: BP 131/81; PULSE 81; TEMP 98.4; BMI 30.4
--- NOTE | 2017-10-21 12:42 | P.PN ---
Subjective Progress Note Date: 09/07/17 DATE OF SERVICE: 09/07/2017 CHIEF COMPLAINT: Follow-up Jorden-en-Y gastric bypass. HISTORY OF PRESENT ILLNESS: Marci Singh is a 42-year-old female status post 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 She is over 1 year out. At her height of 5 feet 4 inches, her ideal body weight is 144 pounds. Her highest weight was 278 pounds. She comes in weighing 177 pounds. She has lost 101 pounds. She has lost another 4 pounds in 1 month. Percent excess weight loss is 75 %. Her body mass index is reduced from 47.8 down to 30.4. She comes in with concerns of her pannus. She has been treated with Nystatin powder and prescribed topical treatment for over 1 year with recurrent symptoms. She reports painful sores of the abdomen including limitations of her activities of her daily living such as exercising and lower back pain. PAST MEDICAL HISTORY: 1. Obstructive sleep apnea. 2. Hypertension. 3. Osteoarthritis of the bilateral hips. 4. Morbid obesity. 5. Postoperative nausea and vomiting. 6. Kidney stones. 7. Panniculitis. PAST SURGICAL HISTORY: 1. Hysterectomy. 2. Bladder suspension. 3. Left elbow surgery. 4. Tonsillectomy. 5. Laparoscopic gastric bypass. MEDICATIONS: 1. Iron. 2. Multivitamin. 3. [place]. ALLERGIES: CODEINE. SOCIAL HISTORY: Former tobacco use. FAMILY HISTORY: Denies any esophageal, stomach cancer. REVIEW OF SYSTEMS: CONSTITUTIONAL: At her height of 5 feet 4 inches, her ideal body weight is 144 pounds. Her highest weight was 278 pounds. She comes in weighing 177 pounds. She has lost 101 pounds. She has lost another 4 pounds in 1 month. Percent excess weight loss is 75 %. Her body mass index is reduced from 47.8 down to 30.4. HEENT: No troubles with vision or hearing. No reports of dysphagia. ENDOCRINE: No reports of active diabetes or thyroid disorder. RESPIRATORY: She denies any dyspnea on exertion. No reports of asthma. Sleep disorder resolved. CARDIOVASCULAR: Hypertension, resolved. No reports of chest pain or heart attack. GASTROINTESTINAL: No reports of dumping syndrome. No reports of fatty food intolerance. Gastroesophageal reflux disease, resolved. Has diarrhea. MUSCULOSKELETAL: Has osteoarthritis of the hips, improved. Also no reports of bilateral lower extremity edema. GENITOURINARY: Has kidney stones. No UTI. NEURO: No reports of stroke or seizure disorders. PSYCH: No reports of depression or suicidal ideation. HEMATOLOGIC: No reports of easy bruising or bleeding. SKIN: Has severe recurrent panniculitis. Has rash. PHYSICAL EXAM: VITAL SIGNS: 5 foot 4, 177 pounds. Body mass index 30.4. Vital Signs Temp 98.4 F 09/07/17 17:32 Pulse 81 09/07/17 17:32 Resp BP 131/81 09/07/17 17:32 Pulse Ox ABDOMEN: Soft, nondistended, nontender. No incisional hernias at bariatric sites. MUSCULOSKELETAL: No clubbing, cyanosis, or edema. CARDIOVASCULAR: Regular rate and rhythm. 2+ radial pulses. GENERAL: Well-developed female in no acute distress. HEENT: No scleral icterus. Extraocular movements grossly intact. Moist buccal mucosa. Hears conversational speech. NECK: Supple without lymphadenopathy. CHEST: Nonlabored respirations. Equal bilateral excursions. NEURO: No focal or lateralizing signs. Cranial nerves II through XII grossly within normal limits. PSYCH: Alert and oriented to person, place, and time. SKIN: Well perfused. Good skin turgor. Pannus over 10+ pound weight. Pannus hangs over her pubis, 5 cm. Has hyperemia with panniculitis. STUDIES: US of the right breast with BIRADS-3. No abnormality. LABS: Labs reviewed. WBC elevated. Iron is low. Total bilirubin elevated. Vitamin D deficiency. Laboratory Last Values WBC 11.5 k/uL (3.8-10.6) H 07/13/17 16:16 RBC 5.20 m/uL (3.80-5.40) 07/13/17 16:16 Hgb 15.0 gm/dL (11.4-16.0) 07/13/17 16:16 Hct 46.8 % (34.0-46.0) H 07/13/17 16:16 MCV 90.0 fL (80.0-100.0) 07/13/17 16:16 MCH 28.8 pg (25.0-35.0) 07/13/17 16:16 MCHC 32.0 g/dL (31.0-37.0) 07/13/17 16:16 RDW 15.2 % (11.5-15.5) 07/13/17 16:16 Plt Count 257 k/uL (150-450) 07/13/17 16:16 PT 10.0 sec (9.0-12.0) 07/13/17 16:16 INR 1.0 (<1.2) 07/13/17 16:16 APTT 24.4 sec (22.0-30.0) 07/13/17 16:16 Sodium 142 mmol/L (137-145) 07/13/17 16:16 Potassium 3.9 mmol/L (3.5-5.1) 07/13/17 16:16 Chloride 101 mmol/L (98-107) 07/13/17 16:16 Carbon Dioxide 29 mmol/L (22-30) 07/13/17 16:16 Anion Gap 12 mmol/L 07/13/17 16:16 BUN 15 mg/dL (7-17) 07/13/17 16:16 Creatinine 0.70 mg/dL (0.52-1.04) 07/13/17 16:16 Est GFR (MDRD) Af Amer >60 (>60 ml/min/1.73 sqM) 07/13/17 16:16 Est GFR (MDRD) Non-Af >60 (>60 ml/min/1.73 sqM) 07/13/17 16:16 Glucose 79 mg/dL (74-99) 07/13/17 16:[address] Glu mg/dL 91 07/13/17 16:16 Hemoglobin A1c 4.8 % (4.0-6.0) 07/13/17 16:16 Calcium 9.6 mg/dL (8.4-10.2) 07/13/17 16:16 Phosphorus 4.5 mg/dL (2.5-4.5) 07/13/17 16:16 Magnesium 2.0 mg/dL (1.6-2.3) 07/13/17 16:16 Iron 34 ug/dL (50-170) L 07/13/17 16:16 TIBC 296 ug/dL (228-460) 07/13/17 16:16 Iron Saturation 11.49 (12.00-45.00) L 07/13/17 16:16 Ferritin 378.7 ng/mL (10.0-291.0) H 07/13/17 16:16 Total Bilirubin 1.5 mg/dL (0.2-1.3) H 07/13/17 16:16 AST 20 U/L (14-36) 07/13/17 16:16 ALT 37 U/L (9-52) 07/13/17 16:16 Alkaline Phosphatase 84 U/L (38-126) 07/13/17 16:16 Total Protein 6.6 g/dL (6.3-8.2) 07/13/17 16:16 Albumin 3.9 g/dL (3.5-5.0) 07/13/17 16:16 Prealbumin 23.0 mg/dL (18.0-42.0) 07/13/17 16:16 Triglycerides 120 mg/dL (<150) 07/13/17 16:16 Cholesterol 175 mg/dL (<200) 07/13/17 16:16 LDL Cholesterol, Calc 95 mg/dL (0-99) 07/13/17 16:16 HDL Cholesterol 56 mg/dL (40-60) 07/13/17 16:16 Vitamin A 45 ug/dL (38-106) 07/13/17 16:16 Vitamin B1 58 ug/L (38-122) 07/13/17 16:16 Vitamin B12 364.0 pg/mL (200.0-944.0) 07/13/17 16:16 Vitamin D 25-Hydroxy 22.9 ng/mL (30.0-100.0) L 07/13/17 16:16 Folate 13.8 ng/mL 07/13/17 16:16 TSH 1.150 mIU/L (0.465-4.680) 07/13/17 16:16 PTH Intact 32.0 pg/mL (14.0-72.0) 07/13/17 16:16 Copper 1487 ug/L (810-1990) 07/13/17 16:16 Selenium 132 mcg/L (63-160) 07/13/17 16:16 Zinc 66 ug/dL (60-130) 07/13/17 16:16 ASSESSMENT: 1. Morbid obesity due to excess calories. 2. Body mass index reduced from 47.8 down to 30.4. 3. Status post gastric bypass. 4. Vitamin D deficiency. 5. Panniculitis. 6. Elevated total bilirubin. 7. Massive weight loss, 101 pounds. 8. Iron deficiency. PLAN: 1. She has been undergoing Nystatin powder for over 1 year with recurrent symptoms. 2. She has maintained weight loss over 100 pounds. Recommend panniculectomy. 3. Benefits and risks of panniculectomy was reviewed including flap failure, bleeding, infection, pain, placement of drains were described. 4. DVT prophylaxis. 5. Antibiotic prophylaxis. 6. Repeat CBC. 7. Iron supplement with correction of iron deficiency advised. 8. Two week high protein diet advised pre-op for optimal recovery. Objective - Vital Signs Vital signs: Vital Signs Temp 98.4 F 09/07/17 17:32 Pulse 81 09/07/17 17:32 Resp BP 131/81 09/07/17 17:32 Pulse Ox Intake & Output 09/06/17 09/07/17 09/07/17 18:59 06:59 18:59 Weight 80.422 kg
== END | disposition home or self-care (01) ==
LOC: BARWHC3 16:27
PROVIDERS: ATTEND Surgery Plastic and Reconstructive Surgery
DX: Z09 Encounter for follow-up examination after completed treatment for conditions other than malignant neoplasm (principal); E66.01 Morbid (severe) obesity due to excess calories; E55.9 Vitamin D deficiency, unspecified; M79.3 Panniculitis, unspecified; E80.7 Disorder of bilirubin metabolism, unspecified; R63.4 Abnormal weight loss; D50.9 Iron deficiency anemia, unspecified; Z98.84 Bariatric surgery status; Z68.30 Body mass index [BMI] 30.0-30.9, adult; Z88.5 Allergy status to narcotic agent; Z79.891 Long term (current) use of opiate analgesic; Z79.899 Other long term (current) drug therapy
CPT/HCPCS: 99211

== ENCOUNTER → 2017-11-18 | Outpatient (CLI) | payer BC, OTHER ==
[2017-11-18 10:17] LABS: Basophils # (A) 0.1 k/uL (0-0.2); Basophils % (A) 1 %; Eosinophils # (A) 0.3 k/uL (0-0.7); Eosinophils % (A) 3 %; HCT 44.6 % (34.0-46.0); HGB 15.3 gm/dL (11.4-16.0); Lymphocytes # (A) 1.3 k/uL (1.0-4.8); Lymphocytes % (A) 14 %; MCH 31.1 pg (25.0-35.0); MCHC 34.2 g/dL (31.0-37.0); Mean Platelet Volume 6.6; Monocytes # (A) 0.5 k/uL (0-1.0); Monocytes % (A) 5 %; Neutrophils # (A) 7.2 k/uL (1.3-7.7); Neutrophils % (A) 76 %; Platelet Count 231 k/uL (150-450); RBC 4.91 m/uL (3.80-5.40); RDW 13.4 % (11.5-15.5); WBC 9.5 k/uL (3.8-10.6)
[2017-11-18 10:29] LABS: ALT 27 U/L (9-52); AST 17 U/L (14-36); Albumin 3.8 g/dL (3.5-5.0); Alkaline Phosphatase 63 U/L (38-126); Anion Gap 12 mmol/L; Blood Urea Nitrogen 14 mg/dL (7-17); Calcium 9.7 mg/dL (8.4-10.2); Carbon Dioxide 25 mmol/L (22-30); Chloride 107 mmol/L (98-107); Glucose 73 mg/dL (74-99); Sodium 144 mmol/L (137-145); Total Bilirubin 1.9 mg/dL (0.2-1.3); Total Protein 6.2 g/dL (6.3-8.2)
== END | disposition home or self-care (01) ==
LOC: LABPAT 09:43
PROVIDERS: ATTEND Surgery Plastic and Reconstructive Surgery
DX: Z01.818 Encounter for other preprocedural examination (principal); Z01.812 Encounter for preprocedural laboratory examination
CPT/HCPCS: 36415; 80053; 85025; 93005

== ENCOUNTER 2017-11-28 14:12 | Inpatient (IN) | payer BC, OTHER ==
[2017-11-15 10:15] VITALS: BMI 29.0
--- NOTE | 2017-11-27 12:12 | P.GSHP ---
History of Present Illness H&P Date: 11/28/17 DATE OF SERVICE: 11/28/2017 CHIEF COMPLAINT: Panniculectomy HISTORY OF PRESENT ILLNESS: Marci Singh is a 42-year-old female status post 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 She is over 1 year out. At her height of 5 feet 4 inches, her ideal body weight is 144 pounds. Her highest weight was 278 pounds. She comes in weighing 177 pounds. She has lost 101 pounds. Percent excess weight loss is 75 %. Her body mass index is reduced from 47.8 down to 30.4. She comes in with concerns of her pannus. She has been treated with Nystatin powder and prescribed topical treatment for over 1 year with recurrent symptoms. She reports painful sores of the abdomen including limitations of her activities of her daily living such as exercising and lower back pain. PAST MEDICAL HISTORY: 1. Obstructive sleep apnea. 2. Hypertension. 3. Osteoarthritis of the bilateral hips. 4. Morbid obesity. 5. Postoperative nausea and vomiting. 6. Kidney stones. 7. Panniculitis. PAST SURGICAL HISTORY: 1. Hysterectomy. 2. Bladder suspension. 3. Left elbow surgery. 4. Tonsillectomy. 5. Laparoscopic gastric bypass. MEDICATIONS: 1. Iron. 2. Multivitamin. 3. [place]. ALLERGIES: CODEINE. SOCIAL HISTORY: Former tobacco use. FAMILY HISTORY: Denies any esophageal, stomach cancer. REVIEW OF SYSTEMS: CONSTITUTIONAL: At her height of 5 feet 4 inches, her ideal body weight is 144 pounds. Her highest weight was 278 pounds. She comes in weighing 177 pounds. She has lost 101 pounds. She has lost another 4 pounds in 1 month. Percent excess weight loss is 75 %. Her body mass index is reduced from 47.8 down to 30.4. HEENT: No troubles with vision or hearing. No reports of dysphagia. ENDOCRINE: No reports of active diabetes or thyroid disorder. RESPIRATORY: She denies any dyspnea on exertion. No reports of asthma. Sleep disorder resolved. CARDIOVASCULAR: Hypertension, resolved. No reports of chest pain or heart attack. GASTROINTESTINAL: No reports of dumping syndrome. No reports of fatty food intolerance. Gastroesophageal reflux disease, resolved. Has diarrhea. MUSCULOSKELETAL: Has osteoarthritis of the hips, improved. Also no reports of bilateral lower extremity edema. GENITOURINARY: Has kidney stones. No UTI. NEURO: No reports of stroke or seizure disorders. PSYCH: No reports of depression or suicidal ideation. HEMATOLOGIC: No reports of easy bruising or bleeding. SKIN: Has severe recurrent panniculitis. Has rash. PHYSICAL EXAM: VITAL SIGNS: 5 foot 4, 177 pounds. Body mass index 30.4. ABDOMEN: Soft, nondistended, nontender. No incisional hernias at bariatric sites. MUSCULOSKELETAL: No clubbing, cyanosis, or edema. CARDIOVASCULAR: Regular rate and rhythm. 2+ radial pulses. GENERAL: Well-developed female in no acute distress. HEENT: No scleral icterus. Extraocular movements grossly intact. Moist buccal mucosa. Hears conversational speech. NECK: Supple without lymphadenopathy. CHEST: Nonlabored respirations. Equal bilateral excursions. NEURO: No focal or lateralizing signs. Cranial nerves II through XII grossly within normal limits. PSYCH: Alert and oriented to person, place, and time. SKIN: Well perfused. Good skin turgor. Pannus over 10+ pound weight. Pannus hangs over her pubis, 5 cm. Has hyperemia with panniculitis. ASSESSMENT: 1. Morbid obesity due to excess calories. 2. Body mass index reduced from 47.8 down to 30.4. 3. Status post gastric bypass. 4. Vitamin D deficiency. 5. Panniculitis. 6. Elevated total bilirubin. 7. Massive weight loss, 101 pounds. 8. Iron deficiency. PLAN: 1. She has been undergoing Nystatin powder for over 1 year with recurrent symptoms. 2. She has maintained weight loss over 100 pounds. Recommend panniculectomy. 3. Benefits and risks of panniculectomy was reviewed including flap failure, bleeding, infection, pain, placement of drains were described. 4. DVT prophylaxis. 5. Antibiotic prophylaxis. 6. Repeat CBC. 7. Iron supplement with correction of iron deficiency advised. 8. Two week high protein diet advised pre-op for optimal recovery. Past Medical History Past Medical History: Deep Vein Thrombosis (DVT), Hyperlipidemia, Hypertension, Neurologic Disorder, Sleep Apnea/CPAP/BIPAP Additional Past Medical History / Comment(s): migraines, no Rx for BP/ CHOLESTEROL, no cpap used, "live antibodies in my blood"kidney stones History of Any Multi-Drug Resistant Organisms: None Reported Past Surgical History: Bariatric Surgery, Bladder Surgery, Hernia Repair, Hysterectomy, Orthopedic Surgery, Tonsillectomy Additional Past Surgical History / Comment(s): left elbow surgery x 2. EGD. RnY bypass on 08/16/16 Past Anesthesia/Blood Transfusion Reactions: Motion Sickness, Postoperative Nausea & Vomiting (PONV) Additional Past Anesthesia/Blood Transfusion Reaction / Comment(s): pt told on previous surgery "live antibodies in my blood" Smoking Status: Former smoker - Past Family History Mother Family Medical History: No Reported History Medications and Allergies Home Medications Medication Instructions Recorded Confirmed Type Multivitamin [Multivitamins Adult 1 tab PO DAILY 09/16/16 11/15/17 History Gummies] Vitamin C/Biotin [Hair, Skin and 1 each PO DAILY 08/24/17 11/15/17 History Nails] Bariatric Advantage 10,000 cap PO DAILY 08/31/17 11/15/17 History Allergies Allergy/AdvReac Type Severity Reaction Status Date / Time codeine Allergy Rash/Hives Verified 11/15/17 10:09 adhesive tape AdvReac torn skin Verified 11/15/17 10:09
[~2017-11-28 14:12] MED LIST changes: -BUPIVACAINE LIPOSOME/PF 1.3% 20 ML, BUPIVACAIN-EPI 0.5%-1:200,000 25 ML, SODIUM CHLORID... MISCELLANE ONE; -CHLORHEXIDINE GLUCONATE 15 ML CUP MUCOUS MEM ONE; -ENOXAPARIN 40 MG/0.4 ML SYRINGE SQ STA; +HEPARIN SODIUM,PORCINE 5,000 UNIT/ML 1 ML VIAL SQ ONE; +HEPARIN SODIUM,PORCINE 5,000 UNIT/ML 1 ML VIAL SQ STA; -HYDROmorphone 1 MG/ML 1 ML SYRINGE IVP PRN; +LIDOCAINE 1% 20 ML VIAL (10MG/ML) FOR IV START INTRADERMA PRN; +ONDANSETRON 4 MG/2 ML VIAL IVP ONE; -PANTOPRAZOLE 40 MG/10 ML VIAL IV STA; -ceFAZolin 2 GM in SODIUM CHLORIDE 0.9% 100 ML IVPB ONE; +ceFAZolin IN SWFI 2 GM/20 ML SYRINGE IVP ONE; +fentaNYL (PF) 50 MCG/ML 2 ML AMP IV PRN
[2017-11-28 14:53] LABS: Glucose,Whole Blood 79 mg/dL (75-99)
[2017-11-28] MEDS: LACTATED RINGERS 1,000 ML IV SCH ×2 (14:53→21:13)
[2017-11-28] MEDS ORDERED: ROCURONIUM BROMIDE 10 MG/ML 10 ML VIAL IV ONE (16:53)
[2017-11-28] MEDS ORDERED: GLYCOPYRROLATE 0.2 MG/ML 2 ML VIAL ONE (16:53)
[2017-11-28] MEDS ORDERED: fentaNYL (PF) 50 MCG/ML 2 ML AMP ONE (16:53)
[2017-11-28] MEDS ORDERED: MIDAZOLAM 2 MG/2 ML VIAL ONE (16:53)
[2017-11-28] MEDS ORDERED: LIDOCAINE 1% INJ 10MG/ML (20 ML MDV) ONE (16:53)
[2017-11-28] MEDS ORDERED: PROPOFOL 10 MG/ML 20 ML VIAL IV ONE (16:53)
[2017-11-28] MEDS ORDERED: NEOSTIGMINE 1 MG/ML 10 ML VIAL ONE (16:53)
[2017-11-28] MEDS ORDERED: LACTATED RINGERS 1,000 ML IV ONE (17:24)
[2017-11-28] MEDS: HYDROmorphone 0.5 MG/0.5 ML SYRINGE IVP PRN ×3 (19:18→21:43)
[2017-11-28] MEDS ORDERED: diphenhydrAMINE 50 MG/ML 1 ML VIAL IVP PRN (19:19)
[2017-11-28] MEDS ORDERED: ONDANSETRON 4 MG/2 ML VIAL IVP PRN (19:19)
[2017-11-28] MEDS ORDERED: NALOXONE 0.4 MG/ML 1 ML VIAL IV PRN (19:19)
--- NOTE | 2017-11-28 19:19 | P.PCN ---
Date of Procedure: 11/28/17 Preoperative Diagnosis: Central adiposity, panniculitis, adiposis panniculus Postoperative Diagnosis: Same, ventral hernia, reducible, unrelated to previous bariatric procedure Procedure(s) Performed: Panniculectomy, 5.25 pounds, ventral hernia repair 18 x 25 cm without mesh Anesthesia: JALEN Surgeon: Meera Suarez Biological Science Aide #1: Boni Elena Estimated Blood Loss (ml): 300 Pathology: other (Panniculectomy) Condition: stable Disposition: floor
[2017-11-28] MEDS ORDERED: ONDANSETRON 4 MG/2 ML VIAL IVP ONE (19:23)
[2017-11-28] MEDS ORDERED: ACETAMINOPHEN IV (For NPO) 1,000 MG in EMPTY BAG 1 BAG IVPB ONE (21:00)
[2017-11-28] MEDS: 0.9% NACL WITH KCL 20 MEQ/L 1,000 ML IV SCH (21:11)
[2017-11-28] MEDS: HYDROcodone/APAP 5-325MG 1 EACH TAB PO SCH (21:14)
[2017-11-29] MEDS: HYDROcodone/APAP 5-325MG 1 EACH TAB PO SCH ×7 (00:10→23:34)
[2017-11-29] MEDS: ceFAZolin IN SWFI 2 GM/20 ML SYRINGE IVP SCH ×2 (00:11→08:06)
[2017-11-29] MEDS: HYDROmorphone 0.5 MG/0.5 ML SYRINGE IVP PRN ×6 (00:30→20:53)
[2017-11-29] MEDS: 0.9% NACL WITH KCL 20 MEQ/L 1,000 ML IV SCH ×3 (03:45→11:42)
[2017-11-29] MEDS: ONDANSETRON 4 MG/2 ML VIAL IVP PRN (06:08)
[2017-11-29 07:06] LABS: Basophils % (A) 0 %; Eosinophils % (A) 0 %; HCT 40.7 % (34.0-46.0); HGB 13.2 gm/dL (11.4-16.0); Lymphocytes # (A) 0.7 k/uL (1.0-4.8); Lymphocytes % (A) 7 %; MCH 29.9 pg (25.0-35.0); MCHC 32.5 g/dL (31.0-37.0); MCV 91.8 fL (80.0-100.0); Mean Platelet Volume 7.1; Monocytes # (A) 0.4 k/uL (0-1.0); Monocytes % (A) 4 %; Neutrophils # (A) 9.3 k/uL (1.3-7.7); Neutrophils % (A) 88 %; Platelet Count 267 k/uL (150-450); RBC 4.43 m/uL (3.80-5.40); RDW 13.2 % (11.5-15.5); WBC 10.6 k/uL (3.8-10.6)
[2017-11-29] MEDS: ENOXAPARIN 40 MG/0.4 ML SYRINGE SQ SCH (08:07)
--- NOTE | 2017-11-29 11:39 | P.PN ---
<Hellen Urena - Last Filed: 11/29/17 11:31> Subjective Progress Note Date: 11/29/17 42-year-old female seen and examined the bedside. Physical therapy at the bedside status post Panniculectomy, 5.25 pounds removed, ventral hernia repair without mesh done on November 28 done for Central adiposity, panniculitis, adiposis panniculus status post 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 4 morbid obesity. Initial BMI 47 down to 30. Patient has been up ambulating short distance report surgical tenderness pain medication has been effective for pain control Objective - Vital Signs Vital signs: Vital Signs Temp 97.1 F L 11/29/17 06:58 Pulse 55 L 11/29/17 06:58 Resp 18 11/29/17 06:58 BP 103/67 11/29/17 06:58 Pulse Ox 96 11/29/17 06:58 Intake & Output 11/28/17 11/29/17 11/29/17 18:59 06:59 18:59 Intake Total 1700 1600 Output Total 400 620 350 Balance 1300 980 -350 Intake: IV 1700 100 Intake, IV Titration 1500 Amount 0.9% NaCl with KCl 20 Meq 1500 /l 1,000 ml @ 150 mls/hr IV .[id number] [facility] Rx#: [id number] Output: Drainage 120 Left 50 Right 70 Urine 100 500 350 Uretheral ([place]) 200 150 Estimated Blood Loss 300 Other: Voiding Method Indwelling Catheter Indwelling Catheter - Exam Physical exam 42-year-old female sitting up on the edge of the bed spouse at the bedside no new events Lungs adequate air movement bilaterally on room air sats are 96% no cough noted Heart S1-S2 audible regular Abdomen abdominal binder in place with 2 JOZEF drains surgical tenderness appropriate urinating no difficulty Extremities no edema - Labs CBC & Chem 7: 11/29/17 06:29 Labs: Abnormal Lab Results - Last 24 Hours (Table) 11/29/17 Range/Units 06:29 Neutrophils # 9.3 H (1.3-7.7) k/uL Lymphocytes # 0.7 L (1.0-4.8) k/uL Assessment and Plan Assessment: Impression status post 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 Morbid obesity initial BMI 47 down to 30 Osteoarthritis bilateral hips Obstructive sleep apnea Status post November 28 Panniculectomy, 5.25 pounds, ventral hernia repair 18 x 25 cm without mesh done for Central adiposity, panniculitis, adiposis panniculus Plan Continue postop surgical care PT eval do not remove the abdominal binder Pain control Home meds as appropriate Anticipate discharge in the next 24 hours Increase activity Diet as tolerated The above impression and plan of care have been discussed and directed by signing physician. Hellen Urena nurse practitioner acting as scribe for signing physician. <Meera Suarez N - Last Filed: 11/30/17 19:54> Objective - Vital Signs Vital signs: Vital Signs Temp 98.4 F 11/30/17 19:25 Pulse 81 11/30/17 19:25 Resp 18 11/30/17 19:25 BP 129/78 11/30/17 19:25 Pulse Ox 95 11/30/17 19:25 Intake & Output 11/30/17 11/30/17 12/01/17 06:59 18:59 06:59 Intake Total 1150 600 Output Total 110 50 Balance 1040 550 Intake: Intake, IV Titration 1150 Amount 0.9% NaCl with KCl 20 Meq 1150 /l 1,000 ml @ 100 mls/hr IV .Q10H [facility] Rx#: [id number] Oral 600 Output: Drainage 110 50 Left 40 20 Right 70 30 Other: Voiding Method Toilet Toilet # Voids 2 2 - Labs CBC & Chem 7: 11/29/17 06:29
[2017-11-29] MEDS: LACTATED RINGERS 1,000 ML IV SCH (12:49)
[2017-11-30] MEDS: HYDROmorphone 0.5 MG/0.5 ML SYRINGE IVP PRN ×3 (00:40→09:31)
[2017-11-30] MEDS: HYDROcodone/APAP 5-325MG 1 EACH TAB PO SCH ×2 (03:58→08:14)
[2017-11-30] MEDS: 0.9% NACL WITH KCL 20 MEQ/L 1,000 ML IV SCH ×2 (07:48→15:19)
[2017-11-30] MEDS: ONDANSETRON 4 MG/2 ML VIAL IVP PRN ×2 (07:56→16:35)
--- NOTE | 2017-11-30 08:59 | P.PN ---
<Hellen Urena - Last Filed: 11/30/17 08:55> Subjective Progress Note Date: 11/30/17 42-year-old female seen and examined at the bedside this morning. Patient had just been up ambulating in the hallway. Patient states still needing IV dilaudid for pain control with the use of [place]. States urinating no difficulty. Afebrile tolerating diet no nausea vomiting. Abdominal binder in place. [address] Serous drainage noted in the bulbs. 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 4 morbid obesity. Initial BMI 47 down to 30. - Objective - Vital Signs Vital signs: Vital Signs Temp 98.4 F 11/30/17 07:00 Pulse 69 11/30/17 07:00 Resp 16 11/30/17 07:00 BP 130/81 11/30/17 07:00 Pulse Ox 94 L 11/30/17 07:00 Intake & Output 11/29/17 11/30/17 11/30/17 18:59 06:59 18:59 Intake Total 1150 Output Total 690 110 Balance -690 1040 Intake: Intake, IV Titration 1150 Amount 0.9% NaCl with KCl 20 Meq 1150 /l 1,000 ml @ 100 mls/hr IV .Q10H SHELLY Rx#: [id number] Output: Drainage 40 110 Left 30 40 Right 10 70 Urine 650 Uretheral (Medley) 150 Other: Voiding Method Indwelling Catheter Toilet # Voids 2 - Exam Physical exam 42-year-old female just returned from walking in the hallway resting in bed reports still having a tenderness to surgical site Lungs adequate air movement bilaterally on room air sats are 94% Heart S1-S2 audible regular Abdomen abdominal binder in place [address] states urinating no difficulty surgical tenderness appropriate nondistended bowel tones present states not passing gas no stool no nausea no vomiting tolerating diet Extremities Venodyne's on to the bilateral lower extremities no edema - Labs CBC & Chem 7: 11/29/17 06:29 Assessment and Plan Assessment: Impression status post 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 Morbid obesity initial BMI 47 down to 30 Osteoarthritis bilateral hips Obstructive sleep apnea Status post November 28 Panniculectomy, 5.25 pounds, ventral hernia repair 18 x 25 cm without mesh done for Central adiposity, panniculitis, adiposis panniculus Plan Continue postop surgical care do not remove the abdominal binder Pain control Home meds as appropriate Anticipate discharge in the next 24 hours Increase activity Diet as tolerated The above impression and plan of care have been discussed and directed by signing physician. Hellen Urena nurse practitioner acting as scribe for signing physician. <Meera Suarez - Last Filed: 11/30/17 19:55> Objective - Vital Signs Vital signs: Vital Signs Temp 98.4 F 11/30/17 19:25 Pulse 81 11/30/17 19:25 Resp 18 11/30/17 19:25 BP 129/78 11/30/17 19:25 Pulse Ox 95 11/30/17 19:25 Intake & Output 11/30/17 11/30/17 12/01/17 06:59 18:59 06:59 Intake Total 1150 600 Output Total 110 50 Balance 1040 550 Intake: Intake, IV Titration 1150 Amount 0.9% NaCl with KCl 20 Meq 1150 /l 1,000 ml @ 100 mls/hr IV .Q10H SHELLY Rx#: [id number] Oral 600 Output: Drainage 110 50 Left 40 20 Right 70 30 Other: Voiding Method Toilet Toilet # Voids 2 2 - Labs CBC & Chem 7: 11/29/17 06:29
[2017-11-30] MEDS: ENOXAPARIN 40 MG/0.4 ML SYRINGE SQ SCH (09:00)
[2017-11-30] MEDS: HYDROcodone/APAP 5-325MG 1 EACH TAB PO PRN ×2 (12:13→16:01)
[2017-11-30] MEDS: LACTATED RINGERS 1,000 ML IV SCH (13:45)
--- NOTE | 2017-11-30 19:56 | P.PN ---
Progress Note - Text Progress Note Date: 11/30/17 Opiod prescription form filled with questions answered of use, misuse and disposal of narcotics. Percocet 10 mg 40 tabs no refill for 1 week written. Drains at bedside stripped. Abdominal flaps viable. No infection or cellulitis. Abdominal binder re-fitted. Plan for discharge tomorrow. All questions answered.
[2017-11-30] MEDS: oxyCODONE-APAP 10-325MG 1 EACH TAB PO PRN (20:34)
[2017-12-01] MEDS: 0.9% NACL WITH KCL 20 MEQ/L 1,000 ML IV SCH (01:41)
[2017-12-01] MEDS: oxyCODONE-APAP 10-325MG 1 EACH TAB PO PRN ×2 (01:41→06:58)
[2017-12-01] MEDS: ONDANSETRON 4 MG/2 ML VIAL IVP PRN (08:34)
[2017-12-01] MEDS: ENOXAPARIN 40 MG/0.4 ML SYRINGE SQ SCH (08:35)
[2017-12-01 08:57] VITALS: BP 168/86; PULSE 90; RESP 16; TEMP 98.6
--- NOTE | 2017-12-01 10:52 | P.DS ---
Providers Date of admission: 11/28/17 14:12 Expected date of discharge: 12/01/17 Attending physician: Meera Suarez Primary care physician: Stated None Hospital Course: 42-year-old female presented on the day of admission to undergo panniculectomy done on November 28. Patient has a history of morbid obesity is status post Jorden-en- Y gastric bypass on 08/16/2016. Patient underwent Panniculectomy, 5.25 pounds, removed ventral hernia repair 18 x 25 cm without mesh for Central adiposity, panniculitis, adiposis panniculus Postop patient was seen by physical and occupational therapy. At the time of discharge pain medication effective for pain control. Abdominal binder was in place. Patient was felt to be appropriate to be discharged home Impression status post 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 Morbid obesity initial BMI 47 down to 30 Osteoarthritis bilateral hips Obstructive sleep apnea Status post November 28 Panniculectomy, 5.25 pounds, ventral hernia repair 18 x 25 cm without mesh done for Central adiposity, panniculitis, adiposis panniculus The above impression and plan of care have been discussed and directed by signing physician. Hellen Urena nurse practitioner acting as scribe for signing physician. Plan - Discharge Summary Discharge Rx Participant: Yes New Discharge Prescriptions: New oxyCODONE-APAP 10-325MG [Percocet 10-325 mg] 1 tab PO Q4HR PRN 3 Days #40 tab PRN Reason: Pain Docusate [Colace] 100 mg PO DAILY #20 capsule Continue Multivitamin [Multivitamins Adult Gummies] 1 tab PO DAILY Vitamin C/Biotin [Hair, Skin and Nails] 1 tab PO DAILY Bariatric Advantage 1 can PO DAILY Discharge Medication List Multivitamin [Multivitamins Adult Gummies] 1 tab PO DAILY 09/16/16 [History] Vitamin C/Biotin [Hair, Skin and Nails] 1 tab PO DAILY 08/24/17 [History] Bariatric Advantage 1 can PO DAILY 08/31/17 [History] oxyCODONE-APAP 10-325MG [Percocet 10-325 mg] 1 tab PO Q4HR PRN 3 Days #40 tab [Rx] Docusate [Colace] 100 mg PO DAILY #20 capsule 12/01/17 [Rx] Follow up Appointment(s)/Referral(s): [facility] [NON-STAFF] - 12/07/17 2:20 pm () Patient Instructions/Handouts: How to Give a Bed Bath (GEN), Candelario-Morales Drain Care (DC), Panniculectomy (DC) Activity/Diet/Wound Care/Special Instructions: NO lifting over 4 pounds in 4 weeks. No shower. No bathtub soaks. Record JOZEF drain output daily and strip drains to prevent clogging. Sleep with head of bed up at 30 to 45 degrees . Walk with hips flexed to prevent tear of your incision. Dressings to be removed by your doctor in the office. EAT 75 G PROTEIN DAILY FOR OPTIMAL RECOVERY. Discharge Disposition: HOME SELF-CARE
--- NOTE | 2017-12-09 14:44 | P.OP ---
Date of Procedure: 11/28/17 Description of Procedure: Date of Procedure: 11/28/17 SURGEON: BYRON DIAMOND MD PREOPERATIVE DIAGNOSES: 1. Morbid obesity due to excess calories. 2. Body mass index reduced from 47.8 down to 29.0 3. Status post gastric bypass. 4. Vitamin D deficiency. 5. Panniculitis. 6. Elevated total bilirubin. 7. Massive weight loss, 109 pounds. 8. Iron deficiency. 9. Central adiposity 10. Adiposis panniculus POSTOPERATIVE DIAGNOSES: 1. Morbid obesity due to excess calories. 2. Body mass index reduced from 47.8 down to 29.0 3. Status post gastric bypass. 4. Vitamin D deficiency. 5. Panniculitis. 6. Elevated total bilirubin. 7. Massive weight loss, 109 pounds. 8. Iron deficiency. 9. Central adiposity 10. Adiposis panniculus 11. Ventral hernia, reducible, unrelated to previous bariatric procedure OPERATION: 1. Panniculectomy, 5.25 pounds. 2. Primary repair of ventral hernia 18 x 25 cm without mesh Anesthesia: [employer] Manager #1: Boni Elena Estimated Blood Loss (ml): 300 Pathology: other (Panniculectomy) Condition: stable Disposition: floor SPECIMENS REMOVED: Pannus 5.25 pounds. COMPLICATIONS: None. DRAINS: Two #19 Dutch drains below abdominal flap extending through the pubis. OPERATIVE FINDINGS: 1. Pannus weighing 5.25 pounds, excised. 2. Abdominal ventral hernia of 18 x 25 cm along the midline repaired primarily using fascial imbrication. INDICATIONS: Marci Singh is a 42-year-old female status post 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 She is over 1 year out. At her height of 5 feet 4 inches, her ideal body weight is 144 pounds. Her highest weight was 278 pounds. She comes in weighing 169 pounds. She has lost 109 pounds. Percent excess weight loss is 82 %. Her body mass index is reduced from 47.8 down to 29.0. She comes in with concerns of her pannus. She has been treated with Nystatin powder and prescribed topical treatment for over 1 year with recurrent symptoms. She reports painful sores of the abdomen including limitations of her activities of her daily living such as exercising and lower back pain. Despite medical therapy with prescription powders such as Nystatin over 1 year, she has developed severe medical refractory panniculitis. Benefits and risks of the procedure including bleeding, infection, cosmetic deformity, abdominal seromas, placement of drains, and risk of flap failure were described at length. Informed consent was obtained. DESCRIPTION: In the pre-anesthesia care unit the patient was marked with an indelible marker. She had also been given heparin subcutaneously. The patient was brought into the operating room and laid in supine position. After general induction, a Medley catheter was placed. The abdomen was then prepped and draped in standard sterile fashion using ChloraPrep. The skin was prepped as far laterally to the back, inferiorly to the upper thighs and superiorly to above the bilateral breasts. A timeout protocol was confirmed with the surgical team regarding patient's name , procedure to be performed, including preoperative medications. She had received Ancef 2 grams IV antibiotics. Once the time-out protocol was confirmed with the surgical team, the patient was re-marked with indelible marker whereby the midline of the xiphoid to the mons pubis was marked. The anterior/superior iliac spine along the bilateral hips was also marked. At 8 cm above the pubis commissure a transverse incision was made for the inferior portion of the flap. Using a #10 blade, the incision was taken from the midline laterally to above the anterior/superior iliac spine , initially on the left side of the patient and then on the right side of the patient. Electro-Bovie cautery was used to control for hemostasis. The dissection was taken down to the level of the fascia. Landmarks used were the xiphoid process as well as the bilateral costal margins for the superior margin. Care was taken to avoid any creation of dog ears during the dissection. Once hemostasis was checked, a large ventral hernia fascial defect of 18 x 25 cm was identified unrelated to her bariatric procedure. During this dissection , the umbilicus was truncated at its fascial insertion. The umbilicus fascial excision was oversewn using 0-Vicryl. Starting from the xiphoid process, fascial imbrication was performed using #2 Ethibond. Multiple facial imbrications at least 4 layers were performed. The ventral hernia defect was completely repaired and closed. Hemostasis was once again checked with electro-Bovie cautery and all defects were addressed. Attention was now brought to closure of the flap. Using stainless steel skin tushar, the midline was once again marked of the upper flap as well as the pubic commissure. The patient was placed in a flexed position of approximately 30 degrees at the hips. The pannus was extended inferiorly to the feet. The upper flap was created once the excess skin was excised. Again care was taken to avoid any dog ears along the lateral aspect of the incisions. Once excised, the pannus was weighed at 5.25 pounds. The upper and lower flaps were reapproximated at the midline and then laterally to the skin with skin tushar. Once reapproximated, the skin was closed in layers using 0 Vicryl for the superficial fascial system followed by running 3- 0 Monocryl for the deep dermis in a running subcuticular fashion. Prior to skin closure, two round #19 Dutch drains were placed underneath the flap and brought out just inferior to the incision along the pubis. Drain stitch using 2-0 nylon was placed. Once the incision was closed, bulb suction was attached. Hemostasis was checked. At the end of the procedure, the needle, sponge and instrument count was verified correct. The skin was cleansed with hydrogen peroxide. Dermabond tape including adhesive was placed along the length of the incision. Optifoam long silver dressing was also placed over the incision. Optifoam dressing was placed over the JOZEF sites. The patient was then transferred to a hospital bed in a beach chair position. An abdominal binder was placed and marked. The patient was taken to the postanesthesia care unit in stable condition, awake and extubated.
== END 2017-12-01 12:05 | disposition home or self-care (01) | DRG 989 ==
LOC: 2ORMAIN 14:12 → 3SUR 19:26
PROVIDERS: ADMIT Surgery Plastic and Reconstructive Surgery; ATTEND Surgery Plastic and Reconstructive Surgery
PROC: 0HB7XZZ Excision of Abdomen Skin, External Approach (ICD-10-PCS; 2017-11-28)
PROC: 0WQF0ZZ Repair Abdominal Wall, Open Approach (ICD-10-PCS; principal; 2017-11-28 16:30)
DX: M79.3 Panniculitis, unspecified (principal); M16.0 Bilateral primary osteoarthritis of hip; K43.9 Ventral hernia without obstruction or gangrene; G47.33 Obstructive sleep apnea (adult) (pediatric); E78.5 Hyperlipidemia, unspecified; E66.01 Morbid (severe) obesity due to excess calories; N20.0 Calculus of kidney; E61.1 Iron deficiency; E55.9 Vitamin D deficiency, unspecified; G43.909 Migraine, unspecified, not intractable, without status migrainosus; M54.5 Low back pain; R19.7 Diarrhea, unspecified; Z68.30 Body mass index [BMI] 30.0-30.9, adult; Z87.891 Personal history of nicotine dependence; Z90.710 Acquired absence of both cervix and uterus; Z98.84 Bariatric surgery status; Z86.718 Personal history of other venous thrombosis and embolism; Z88.5 Allergy status to narcotic agent; Z91.048 Other nonmedicinal substance allergy status
CPT/HCPCS: 85025

== ENCOUNTER → 2017-12-07 | Outpatient (CLI) | payer BC, OTHER ==
[2017-12-07 15:37] VITALS: BP 119/80; PULSE 76; RESP 20; TEMP 98.2; BMI 30.1
--- NOTE | 2017-12-07 16:06 | P.PN ---
Subjective Progress Note Date: 12/07/17 DATE OF SERVICE: 12/07/2017 CHIEF COMPLAINT: Follow-up Jorden-en-Y gastric bypass. HISTORY OF PRESENT ILLNESS: Marci Singh is a 42-year-old female status post 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 She is over 16 months out. At her height of 5 feet 4 inches, her ideal body weight is 144 pounds. Her highest weight was 278 pounds. She comes in weighing 175 pounds from 177 pounds, 3 months ago. She has lost another 2 pounds. She has lost 103 pounds. Percent excess weight loss is 77 %. Her body mass index is reduced from 47.8 down to 30.1. She is s/p panniculectomy 11/28/2017. She is 9 days out. She still reports pain. She just had a bowel movement. PHYSICAL EXAM: VITAL SIGNS: 5 foot 4, 175 pounds. Body mass index 30.1 Temp 98.2 F 12/07/17 15:25 Pulse 76 12/07/17 15:25 Resp 20 12/07/17 15:25 BP 119/80 12/07/17 15:25 Pulse Ox ABDOMEN: Dressing removed. No infection. Incisions are intact. MUSCULOSKELETAL: No clubbing, cyanosis, or edema. CARDIOVASCULAR: Regular rate and rhythm. 2+ radial pulses. GENERAL: Well-developed female in no acute distress. HEENT: No scleral icterus. Extraocular movements grossly intact. Moist buccal mucosa. Hears conversational speech. NECK: Supple without lymphadenopathy. CHEST: Nonlabored respirations. Equal bilateral excursions. NEURO: No focal or lateralizing signs. Cranial nerves II through XII grossly within normal limits. PSYCH: Alert and oriented to person, place, and time. ASSESSMENT: 1. Morbid obesity due to excess calories. 2. Body mass index reduced from 47.8 down to 30.1 3. Status post gastric bypass. 4. s/p panniculectomy for panniculitis PLAN: 1. Dressings were changed. 2. Percocet 30 tabs filled for pain relief. 3. Follow up next week. Objective - Vital Signs Vital signs: Vital Signs Temp 98.2 F 12/07/17 15:25 Pulse 76 12/07/17 15:25 Resp 20 12/07/17 15:25 BP 119/80 12/07/17 15:25 Pulse Ox Intake & Output 12/06/17 12/07/17 12/07/17 18:59 06:59 18:59 Weight 79.56 kg
== END | disposition home or self-care (01) ==
LOC: BARWHC3 14:25
PROVIDERS: ATTEND Surgery Plastic and Reconstructive Surgery
DX: Z48.817 Encounter for surgical aftercare following surgery on the skin and subcutaneous tissue (principal); G89.28 Other chronic postprocedural pain; E66.01 Morbid (severe) obesity due to excess calories; Z98.84 Bariatric surgery status; Z68.30 Body mass index [BMI] 30.0-30.9, adult
CPT/HCPCS: 99212

== ENCOUNTER → 2017-12-14 | Outpatient (CLI) | payer BC, OTHER ==
--- NOTE | 2017-12-14 08:28 | P.PN ---
Subjective Progress Note Date: 12/14/17 DATE OF SERVICE: 12/14/2017 CHIEF COMPLAINT: Follow-up panniculectomy HISTORY OF PRESENT ILLNESS: Marci Singh is a 42-year-old female status post panniculectomy 11/28/2017. She is 12 days out. She is doing very well. No fevers or chills. At her height of 5 feet 4 inches, her ideal body weight is 144 pounds. Her highest weight was 278 pounds. She comes in weighing 180 pounds from 175 pounds. She has gained 4 pounds in 1 week. She has lost 98 pounds. Percent excess weight loss is 73 %. Her body mass index is reduced from 47.8 down to 30.9. PHYSICAL EXAM: VITAL SIGNS: 5 foot 4, 180 pounds. Body mass index 30.9 Vital Signs Temp 98.1 F 12/14/17 09:22 Pulse 72 12/14/17 09:22 Resp BP 113/68 12/14/17 09:22 Pulse Ox ABDOMEN: Desquamation of the skin from premature tear from removal of tape. JOZEF are serous. MUSCULOSKELETAL: No clubbing, cyanosis, or edema. CARDIOVASCULAR: Regular rate and rhythm. 2+ radial pulses. GENERAL: Well-developed female in no acute distress. HEENT: No scleral icterus. Extraocular movements grossly intact. Moist buccal mucosa. Hears conversational speech. NECK: Supple without lymphadenopathy. CHEST: Nonlabored respirations. Equal bilateral excursions. NEURO: No focal or lateralizing signs. Cranial nerves II through XII grossly within normal limits. PSYCH: Alert and oriented to person, place, and time. ASSESSMENT: 1. Morbid obesity due to excess calories. 2. Body mass index reduced from 47.8 down to 30.9 3. Status post gastric bypass. 4. s/p panniculectomy for panniculitis PLAN: 1. All drains removed. 2. Plan for follow-up in 2 to 3 weeks with tape measure of waist. 3. New snug binder placed.
[2017-12-14 09:44] VITALS: BP 113/68; PULSE 72; TEMP 98.1; BMI 27.3
== END | disposition home or self-care (01) ==
LOC: BARWHC3 08:13
PROVIDERS: ATTEND Surgery Plastic and Reconstructive Surgery
DX: Z09 Encounter for follow-up examination after completed treatment for conditions other than malignant neoplasm (principal); E66.01 Morbid (severe) obesity due to excess calories; Z68.30 Body mass index [BMI] 30.0-30.9, adult; Z98.84 Bariatric surgery status
CPT/HCPCS: 99212

== ENCOUNTER → 2018-01-04 | Outpatient (CLI) | payer BC, OTHER ==
[2018-01-04 14:04] VITALS: BP 131/80; PULSE 63; RESP 15; BMI 30.2
--- NOTE | 2018-01-04 14:32 | P.PN ---
Subjective Progress Note Date: 01/04/18 HPI: She is 5 weeks out from her panniculectomy. She reports some pulling sensation. ABDOMEN: Has abdominal wall seroma. Binders replaced. No signs of infection. PLAN: 1. Recommend US FNA of abdominal wall seroma. 2. Continue abdominal binder. 3. No return to work for at least 8 weeks advised. 4. Follow up after seroma drainage Objective - Vital Signs Vital signs: Vital Signs Temp Pulse 63 01/04/18 13:53 Resp 15 01/04/18 13:53 BP 131/80 01/04/18 13:53 Pulse Ox Intake & Output 01/03/18 01/04/18 01/04/18 18:59 06:59 18:59 Weight 79.923 kg
== END | disposition home or self-care (01) ==
LOC: BARWHC3 13:48
PROVIDERS: ATTEND Surgery Plastic and Reconstructive Surgery
DX: Z48.817 Encounter for surgical aftercare following surgery on the skin and subcutaneous tissue (principal); T88.8XXA Other specified complications of surgical and medical care, not elsewhere classified, initial encounter; L76.34 Postprocedural seroma of skin and subcutaneous tissue following other procedure; Z98.890 Other specified postprocedural states
CPT/HCPCS: 99212

== ENCOUNTER 2018-01-16 07:49 | Day surgery (SDC) | payer BC, OTHER ==
[2018-01-16 08:23] VITALS: BP 133/92; PULSE 69; RESP 20; TEMP 97.7
--- NOTE | 2018-01-16 09:26 | US ---
ULTRASOUND GUIDED FNA ANTERIOR ABDOMINAL WALL FLUID COLLECTION: CLINICAL HISTORY: Anterior abdominal wall fluid collection FINDINGS: Preliminary imaging demonstrated no sizable collection for percutaneous aspiration. Patient deferred the procedure. IMPRESSION: 1. Deferred FNA.
== END 2018-01-16 08:55 | disposition home or self-care (01) ==
LOC: RADPROMAIN 07:49
PROVIDERS: ATTEND Surgery Plastic and Reconstructive Surgery
DX: R19.09 Other intra-abdominal and pelvic swelling, mass and lump (principal); Z53.9 Procedure and treatment not carried out, unspecified reason
CPT/HCPCS: 76536; 76705

== ENCOUNTER → 2019-09-07 | Outpatient (CLI) | payer OTHER ==
--- NOTE | 2019-09-07 15:07 | XR ---
Bilateral knees HISTORY: Bilateral knee pain 3 views of each knee submitted on a total 6 images Marginal spurring, joint space loss present in the medial compartments. Alignment and bone mineraliza tion are maintained. Small amount of suprapatellar increased density present suggesting bilateral nicolle nt effusions. Spurring also present at the patellofemoral joints. IMPRESSION: Osteoarthritis.
== END | disposition home or self-care (01) ==
LOC: RAD 14:30
PROVIDERS: ATTEND Emergency Medicine
DX: M17.0 Bilateral primary osteoarthritis of knee (principal)

== ENCOUNTER → 2019-09-12 | Outpatient (CLI) | payer OTHER ==
--- NOTE | 2019-09-12 12:51 | US ---
EXAMINATION TYPE: US venous doppler duplex LE RT DATE OF EXAM: 09/12/2019 12:39 PM COMPARISON: US 2017 CLINICAL HISTORY: S93.401A Sprain of unspecified ligament of right a. Right leg and foot pain and swe lling following fall down steps couple weeks ago SIDE PERFORMED: Right TECHNIQUE: The lower extremity deep venous system is examined utilizing real time linear array sonog mikey with graded compression, doppler sonography and color-flow sonography. VESSELS IMAGED: External Iliac Vein (EIV) Common Femoral Vein Deep Femoral Vein Greater Saphenous Vein * Femoral Vein Popliteal Vein Small Saphenous Vein * Proximal Calf Veins (* superficial vessels) Grayscale, color doppler, spectral doppler imaging performed of the deep veins of the right lower ext remity. There is normal flow, compressibility, vascular waveforms. Right Leg: Appears negative for DVT IMPRESSION: No sonographic evidence of deep venous thrombosis within the right lower extremity.
--- NOTE | 2019-09-12 13:14 | XR ---
EXAMINATION TYPE: XR ankle complete RT, XR foot complete RT DATE OF EXAM: 09/12/2019 CLINICAL HISTORY: Falling injury with pain and swelling. TECHNIQUE: Frontal, lateral and oblique images of the right ankle and foot are obtained. COMPARISON: None. FINDINGS: There is no acute fracture/dislocation evident in the right ankle. The ankle mortise appe ars within normal limits. The overlying soft tissue appears unremarkable. There is no acute fracture or dislocation evident in the right foot. Thumb flexion in the distal thi rd through fifth toes. The joint spaces in the right foot are preserved. Overlying soft tissue is un remarkable. IMPRESSION: There is no acute fracture or dislocation in the right ankle or foot.
== END | disposition home or self-care (01) ==
LOC: RADUSWWP 12:12
PROVIDERS: ATTEND Emergency Medicine
DX: M79.671 Pain in right foot (principal); M79.661 Pain in right lower leg; S93.401A Sprain of unspecified ligament of right ankle, initial encounter

== ENCOUNTER → 2019-09-19 | Outpatient (CLI) | payer OTHER ==
--- NOTE | 2019-09-19 17:12 | CT ---
EXAMINATION TYPE: CT foot RT wo con DATE OF EXAM: 09/19/2019 COMPARISON: X-rays 09/12/2019 HISTORY: right foot pain following fall CT DLP: 265.5 mGycm Automated exposure control for dose reduction was used. Unenhanced CT of the right foot was performed in the coronal axial and sagittal planes with bone and soft tissue window settings submitted. DONALD re construction was obtained at a separate workstation. FINDINGS: Not see evidence for acute fracture or dislocation. Joint spaces are well-preserved. No evidence for intraosseous lesion. No soft tissue masses present. Joint spaces are well-preserved. IMPRESSION: NO EVIDENCE FOR ACUTE FRACTURE OR DISLOCATION.
== END | disposition home or self-care (01) ==
LOC: RADCTMAIN 16:36
PROVIDERS: ATTEND Emergency Medicine
DX: M79.671 Pain in right foot (principal)

== ENCOUNTER → 2019-12-20 | Outpatient (CLI) | payer OTHER ==
--- NOTE | 2019-12-20 12:59 | US ---
EXAMINATION TYPE: US venous doppler duplex LE RT DATE OF EXAM: 12/20/2019 12:48 PM COMPARISON: NONE CLINICAL HISTORY: M25.651,M79.671 PAIN IN RT KNEE AND FOOT. Pain and edema SIDE PERFORMED: Right TECHNIQUE: The lower extremity deep venous system is examined utilizing real time linear array sonog mikey with graded compression, doppler sonography and color-flow sonography. VESSELS IMAGED: External Iliac Vein (EIV) Common Femoral Vein Deep Femoral Vein Greater Saphenous Vein * Femoral Vein Popliteal Vein Small Saphenous Vein * Proximal Calf Veins (* superficial vessels) Right Leg: Negative for DVT IMPRESSION: 1. Right lower extremity ultrasound negative for deep venous thrombosis.
== END | disposition home or self-care (01) ==
LOC: RADUSWWP 12:32
PROVIDERS: ATTEND Orthopaedic Surgery
DX: M25.561 Pain in right knee (principal); I80.9 Phlebitis and thrombophlebitis of unspecified site; M79.671 Pain in right foot

== ENCOUNTER → 2020-08-29 | Outpatient (CLI) | payer BC ==
--- NOTE | 2020-08-29 15:47 | US ---
EXAMINATION TYPE: US thyroid st tissue head/neck DATE OF EXAM: 08/29/2020 COMPARISON: NONE CLINICAL HISTORY: E21.3 hyperparathyroidism. Scanned right and left neck Parathyroids not seen at this time No abnormalities noted at this time IMPRESSION: 1. No suspicious nodules to suggest abnormal parathyroid glands. Consider nuclear medicine parathyroi d scan for additional evaluation.
== END ==
LOC: RADUSWWP 14:52
PROVIDERS: ATTEND Family Medicine
DX: E21.3 Hyperparathyroidism, unspecified (principal)
CPT/HCPCS: 76536

== ENCOUNTER → 2020-09-10 | Outpatient (CLI) | payer BC ==
[2020-09-10 15:43] VITALS: BP 136/93; PULSE 73; RESP 18; TEMP 98.3; BMI 38.6
--- NOTE | 2020-09-10 16:06 | P.PN ---
Subjective Progress Note Date: 09/10/20 She brings in her lab. TSH within normal limits. She has gained 50 pounds in 5 months. Plan for medical supervised weight. She is not using food diary journal. "I dont eat." Recommend dietary journal. Follow up in 3 weeks. Recommend 2 week protein diet. Recommend labs. Objective - Vital Signs Vital signs: Vital Signs Temp 98.3 F 09/10/20 15:29 Pulse 73 09/10/20 15:29 Resp 18 09/10/20 15:29 BP 136/93 09/10/20 15:29 Pulse Ox Intake & Output 09/09/20 09/10/20 09/10/20 18:59 06:59 18:59 Weight 102.058 kg
[2020-09-10 17:16] LABS: HCT 43.3 % (34.0-46.0); HGB 14.6 gm/dL (11.4-16.0); MCH 29.8 pg (25.0-35.0); MCHC 33.8 g/dL (31.0-37.0); MCV 88.2 fL (80.0-100.0); Mean Platelet Volume 7.7; Platelet Count 237 k/uL (150-450); RBC 4.91 m/uL (3.80-5.40); RDW 13.4 % (11.5-15.5); WBC 10.5 k/uL (3.8-10.6)
[2020-09-11 00:43] LABS: INR 0.93 (0.90-1.11); Partial Thromboplastin Time 28.2 sec (23.5-31.0); Prothrombin Time 10.2 sec (9.9-11.9)
[2020-09-11 05:12] LABS: Hemoglobin A1C 4.9 % (4.0-6.0)
[2020-09-11 06:24] LABS: % Iron Saturation 15.46 (12.00-45.00); African American GFR (CKD) 103.2 (60.0-200.0); Albumin 4.4 g/dL (3.80-4.90); Albumin/Globulin Ratio 2.32 (1.60-3.17); Anion Gap 10.3 mmol/L (4.00-12.00); BUN/Creat Ratio 23.75 Ratio (12.00-20.00); Calcium 9.7 mg/dL (8.7-10.3); Carbon Dioxide 27.7 mmol/L (21.6-31.8); Chol/HDL Ratio 3.15; Globulin 1.9 g/dL (1.6-3.3); LDL Cholesterol,Calculated 100.2 mg/dL (0.0-131.0); Phosphorus 4.3 mg/dL (2.4-5.1); Potassium 3.9 mmol/L (3.5-5.5); Total Bilirubin 0.7 mg/dL (0.3-1.2); Total Protein 6.3 g/dL (6.2-8.2); VLDL Calculation 30.8 mg/dL (5.00-40.00)
[2020-09-11 06:32] LABS: Ferritin 262.3 ng/mL (10.0-291.0)
[2020-09-11 07:41] LABS: Folate, Serum 12.4 ng/mL
[2020-09-11 14:55] LABS: Zinc, Serum 50 ug/dL (60-130)
[2020-09-12 07:39] LABS: Vitamin A 52 ug/dL (38-106)
[2020-09-12 11:03] LABS: Vit B1(Thiamine) 68 ug/L (38-122)
[2020-09-14 17:22] LABS: Selenium 118 mcg/L (63-160)
== END ==
LOC: BARWHC3 14:34
PROVIDERS: ATTEND Surgery Plastic and Reconstructive Surgery
DX: E66.01 Morbid (severe) obesity due to excess calories (principal); E89.1 Postprocedural hypoinsulinemia; D50.8 Other iron deficiency anemias; E44.0 Moderate protein-calorie malnutrition; E55.9 Vitamin D deficiency, unspecified; K74.1 Hepatic sclerosis; N19 Unspecified kidney failure; K50.90 Crohn's disease, unspecified, without complications; Z68.38 Body mass index [BMI] 38.0-38.9, adult; I10 Essential (primary) hypertension; E78.5 Hyperlipidemia, unspecified; Z86.718 Personal history of other venous thrombosis and embolism; Z87.891 Personal history of nicotine dependence
CPT/HCPCS: 36415; 80053; 80061; 82306; 82525; 82607; 82728; 82746; 83036; 83540; 83550; 83735; 83970; 84100; 84134; 84255; 84425; 84443; 84590; 84630; 85027; 85610; 85730; 99211

== ENCOUNTER → 2020-10-01 | Outpatient (CLI) | payer BC ==
[2020-10-01 16:29] VITALS: BP 135/82; PULSE 98; RESP 16; TEMP 98.2; BMI 37.8
--- NOTE | 2020-10-01 17:07 | P.PN ---
Subjective Progress Note Date: 10/01/20 Needs robotic lysis of adhesions for severe left upper quadrant pain and adhesions. Thyroid supplement advised. Iron low, Vitamin D is low, Zinc is low. Has side effects of cymbalta of weight gain. Polyphagia alternatives include cymbalta Objective - Vital Signs Vital signs: Vital Signs Temp 98.2 F 10/01/20 16:23 Pulse 98 10/01/20 16:23 Resp 16 10/01/20 16:23 BP 135/82 10/01/20 16:23 Pulse Ox Intake & Output 09/30/20 10/01/20 10/01/20 18:59 06:59 18:59 Weight 101.605 kg
== END ==
LOC: BARWHC3 14:57
PROVIDERS: ATTEND Surgery Plastic and Reconstructive Surgery
DX: E66.01 Morbid (severe) obesity due to excess calories (principal); Z68.37 Body mass index [BMI] 37.0-37.9, adult; E78.5 Hyperlipidemia, unspecified; I10 Essential (primary) hypertension; G43.909 Migraine, unspecified, not intractable, without status migrainosus; Z98.84 Bariatric surgery status; Z87.891 Personal history of nicotine dependence
CPT/HCPCS: 99211

== ENCOUNTER → 2020-10-22 | Outpatient (CLI) | payer BC ==
[2020-10-22 09:53] LABS: Basophils # (A) 0.1 k/uL (0-0.2); Basophils % (A) 1 %; Eosinophils # (A) 0.4 k/uL (0-0.7); Eosinophils % (A) 5 %; HCT 44.1 % (34.0-46.0); HGB 14.8 gm/dL (11.4-16.0); Lymphocytes # (A) 1.5 k/uL (1.0-4.8); Lymphocytes % (A) 17 %; MCH 29.4 pg (25.0-35.0); MCHC 33.6 g/dL (31.0-37.0); MCV 87.4 fL (80.0-100.0); Mean Platelet Volume 7.7; Monocytes # (A) 0.5 k/uL (0-1.0); Monocytes % (A) 6 %; Neutrophils # (A) 6.2 k/uL (1.3-7.7); Neutrophils % (A) 70 %; Platelet Count 266 k/uL (150-450); RBC 5.04 m/uL (3.80-5.40); RDW 13.6 % (11.5-15.5); WBC 8.9 k/uL (3.8-10.6)
[2020-10-22 10:02] LABS: ALT 18 U/L (4-34); AST 21 U/L (14-36); African American GFR (CKD) >90 (>60 ml/min/1.73 sqM); Alkaline Phosphatase 97 U/L (38-126); Anion Gap 6 mmol/L; Blood Urea Nitrogen 16 mg/dL (7-17); Calcium 9.9 mg/dL (8.4-10.2); Carbon Dioxide 29 mmol/L (22-30); Chloride 105 mmol/L (98-107); Glucose 81 mg/dL (74-99); Non-African American GFR(CKD) >90 (>60 ml/min/1.73 sqM); Potassium 4.5 mmol/L (3.5-5.1); Sodium 140 mmol/L (137-145); Total Bilirubin 0.9 mg/dL (0.2-1.3); Total Protein 6.7 g/dL (6.3-8.2)
== END | disposition home or self-care (01) ==
LOC: LABPAT 08:56
PROVIDERS: ATTEND Surgery Plastic and Reconstructive Surgery
DX: Z01.818 Encounter for other preprocedural examination (principal)
CPT/HCPCS: 36415; 80053; 85025; 93005

== ENCOUNTER 2020-11-10 08:57 | Day surgery (SDC) | payer BC ==
[2020-11-06 10:42] VITALS: BMI 36.8
--- NOTE | 2020-11-10 08:14 | P.GSHP ---
History of Present Illness H&P Date: 11/10/20 CHIEF COMPLAINT: History of intra-abdominal adhesions HISTORY OF PRESENT ILLNESS: The patient is a 45-year-old female who presents with history of intra-abdominal adhesions from multiple prior surgeries including increasing abdominal pain. She now presents for diagnostic laparoscopy including lysis of adhesions. PAST MEDICAL HISTORY: Please see list. PAST SURGICAL HISTORY: Please see list. MEDICATIONS: Please see list. ALLERGIES: Please see list. SOCIAL HISTORY: No illicit drug use FAMILY HISTORY: No reports of Crohn disease or ulcerative colitis. REVIEW OF ORGAN SYSTEMS: CONSTITUTIONAL: No reports of fevers or chills. GI: Denies any blood in stools or constipation. PHYSICAL EXAM: VITAL SIGNS: Stable GENERAL: Well-developed pleasant and in no acute distress. HEENT: No scleral icterus. Extraocular movements grossly intact. Moist buccal mucosa. NECK: Supple without lymphadenopathy. CHEST: Unlabored respirations. Equal bilateral excursions. CARDIOVASCULAR: Regular rate and rhythm. Distal 2+ pulses. ABDOMEN: Soft, diffuse abdominal tenderness. No peritonitis. MUSCULOSKELETAL: No clubbing, cyanosis, or edema. ASSESSMENT: 1. Diffuse abdominal pain. 2. History of multiple abdominal surgeries. 3. Intra-abdominal adhesions. PLAN: 1. Robotic lysis of adhesions were described in detail including risk of injury to the intestine, need for further surgery, and open technique. 2. DVT prophylaxis. 3. Antibiotic prophylaxis. Past Medical History Past Medical History: Deep Vein Thrombosis (DVT), Hyperlipidemia, Hypertension, Neurologic Disorder, Sleep Apnea/CPAP/BIPAP, Thyroid Disorder Additional Past Medical History / Comment(s): migraines, no Rx for BP/CHOLESTEROL, no cpap used, kidney stones; DDD., hx DVT/?hematoma leg 30 yrs. after horse stepped on leg, hyperparathyroidism History of Any Multi-Drug Resistant Organisms: None Reported Past Surgical History: Bariatric Surgery, Bladder Surgery, Hernia Repair, Hysterectomy, Orthopedic Surgery, Tonsillectomy Additional Past Surgical History / Comment(s): left elbow surgery x 2, EGd,. RnY bypass on 08/16/16, Panniculectomy 11/29/17 Past Anesthesia/Blood Transfusion Reactions: Motion Sickness, Postoperative Nausea & Vomiting (PONV) Additional Past Anesthesia/Blood Transfusion Reaction / Comment(s): pt told on previous surgery "antibodies in my blood" Smoking Status: Former smoker - Past Family History Mother Family Medical History: No Reported History Medications and Allergies Home Medications Medication Instructions Recorded Confirmed Type Multivitamin [Multivitamins Adult 1 tab PO DAILY 09/16/16 11/06/20 History Gummies] Vitamin C/Biotin [Hair, Skin and 1 tab PO DAILY 08/24/17 11/06/20 History Nails] Iron 64 mg PO BID 09/12/20 11/06/20 History Levothyroxine Sodium 25 mcg PO DAILY #30 tablet 10/01/20 11/06/20 Rx Zinc Gluconate [Zinc] 50 mg PO DAILY@1200 #60 tablet 10/01/20 11/06/20 Rx Ergocalciferol [Vitamin D2 (1250 1,250 mcg PO SUWE 11/06/20 11/06/20 History Mcg = 91084 Iu)] Allergies Allergy/AdvReac Type Severity Reaction Status Date / Time adhesive tape AdvReac torn skin Verified 11/06/20 10:16 codeine AdvReac Rash/Hives Verified 11/06/20 10:16
[~2020-11-10 08:57] MED LIST changes: -ACETAMINOPHEN IV (For NPO) 1,000 MG in EMPTY BAG 1 BAG IVPB ONE; +ACETAMINOPHEN TAB 500 MG TAB PO PRN; -DEXAMETHASONE SOD PHOSPHATE 10 MG/ML 1 ML VIAL IV ONE; +DEXAMETHASONE SOD PHOSPHATE 4 MG/ML 1 ML VIAL IV ONE; +GABAPENTIN 300 MG CAP PO PRN; -HEPARIN SODIUM,PORCINE 5,000 UNIT/ML 1 ML VIAL SQ ONE; -HEPARIN SODIUM,PORCINE 5,000 UNIT/ML 1 ML VIAL SQ STA; +HEPARIN SODIUM,PORCINE/PF 5,000 UNIT/0.5 ML SYRINGE SQ PRN; +LACTATED RINGERS 1,000 ML IV SCH; -LIDOCAINE 1% 20 ML VIAL (10MG/ML) FOR IV START INTRADERMA PRN; +MELOXICAM 7.5 MG TAB PO PRN; -ONDANSETRON 4 MG/2 ML VIAL IVP ONE; -SCOPOLAMINE 1.5MG/72HR PATCH TRANSDERM ONE; +SCOPOLAMINE 1.5MG/72HR PATCH TRANSDERM PRN; -ceFAZolin IN SWFI 2 GM/20 ML SYRINGE IVP ONE; -fentaNYL (PF) 50 MCG/ML 2 ML AMP IV PRN
[2020-11-10] MEDS ORDERED: LIDOCAINE 1% (10MG/ML) FOR IV START INTRADERMA ONE (09:41)
[2020-11-10] MEDS: ONDANSETRON 4 MG/2 ML VIAL IVP ONE ×2 (09:41→12:58)
[2020-11-10] MEDS ORDERED: fentaNYL (PF) 50 MCG/ML 2 ML AMP IVP ONE (10:07)
--- NOTE | 2020-11-10 10:35 | P.ANPRN ---
Procedure Note - Anesthesia - Nerve Block Performed Bilateral Erector Spinae Single Time Out Performed: Yes (1006) Date of Procedure: 11/10/20 Procedure Start Time: 10:07 Procedure Stop Time: 10:12 Location of Patient: PreOp Indication: Acute Post-Operative Pain, Requested by Surgeon Specifically requested for management of pain by : Meera Suarez Sedation Type: Sedate with meaningful contact maintained Preparation: Sterile Prep Position: Prone Catheter: None Needle Types: Pajunk Needle Gauge: 21 Ultrasound used to visualize needle placement: Yes Ultrasound used to observe medication spread: Yes Injectate: 0.5% Ropivacaine (see comment for volume) ((Ropi 0.5% 15cc + NACL PF 15cc) each side) Narrative: T10-11 Blood Aspirated: No Pain Paresthesia on Injection Noted: No Resistance on Injection: Normal Image Stored and Saved: Yes Events: Uneventful and Well Tolerated
[2020-11-10] MEDS ORDERED: PROPOFOL 10 MG/ML 20 ML VIAL IV ONE (10:38)
[2020-11-10] MEDS ORDERED: LIDOCAINE 1% INJ 10MG/ML (20 ML MDV) ONE (10:38)
[2020-11-10] MEDS ORDERED: GLYCOPYRROLATE 0.2 MG/ML 2 ML VIAL ONE (10:38)
[2020-11-10] MEDS ORDERED: fentaNYL (PF) 50 MCG/ML 2 ML AMP ONE (10:38)
[2020-11-10] MEDS ORDERED: SODIUM CHLORIDE 0.9% (PF) 10 ML VIAL ONE (10:38)
[2020-11-10] MEDS ORDERED: ROCURONIUM 10 MG/ML (5 ML VIAL) IV ONE (10:38)
[2020-11-10] MEDS ORDERED: NEOSTIGMINE 1 MG/ML 10 ML VIAL ONE (10:38)
[2020-11-10] MEDS ORDERED: ROPIVACAINE 5 MG/ML 30 ML VIAL ONE (10:38)
[2020-11-10] MEDS ORDERED: SUCCINYLCHOLINE CHLORIDE 100 MG/5 ML SYR IV ONE (10:38)
--- NOTE | 2020-11-10 10:40 | P.HPADDEND ---
H&P Addendum H&P Addendum Date: 11/10/20 Patient reports new left lower quadrant/left inguinal discomfort especially worse with sneezing. We'll proceed with lysis of adhesions. Possibility of hernia was also described with mesh placement for another time.
[2020-11-10] MEDS ORDERED: BUPIVACAIN-EPI 0.5%-1:200,000 30 ML VIAL SQ ONE (11:04)
[2020-11-10 11:56] VITALS: TEMP 97.3
[2020-11-10] MEDS ORDERED: LACTATED RINGERS 1,000 ML IV ONE (12:00)
--- NOTE | 2020-11-10 12:17 | P.OP ---
Date of Procedure: 11/10/20 Description of Procedure: SURGEON: BYRON DIAMOND MD PREOPERATIVE DIAGNOSES: 1. Peritoneal adhesion with left upper quadrant epigastric pain 2. History of multiple abdominal surgeries 3. History of gastric bypass 4. Morbid obesity due to excess calories. 5. Body mass index reduced from 47.8 down to 38.6 6. Status post panniculectomy 7. Depressive disorder POSTOPERATIVE DIAGNOSES: 1. Peritoneal adhesion with left upper quadrant epigastric pain 2. History of multiple abdominal surgeries 3. History of gastric bypass 4. Morbid obesity due to excess calories. 5. Body mass index reduced from 47.8 down to 38.6 6. Status post panniculectomy 7. Depressive disorder OPERATION: 1. Robotic-assisted da Priti Xi laparoscopic with extensive lysis of adhesions ESTIMATED BLOOD LOSS: 5 mL. SPECIMENS REMOVED: None. COMPLICATIONS: None. OPERATIVE FINDINGS: 1. No ventral hernias identified. 2. Adhesions along the epigastrium, left upper quadrant 3. Complete scarring of William defect and jejunojejunostomy mesenteric defect 4. Normal terminal ileum and cecum unremarkable. 5. Greater omentum to anterior abdominal wall adhesion left upper quadrant lysed. INDICATIONS: The patient is a 45-year-old female who presents with epigastric abdominal pain including left upper quadrant abdominal pain. Surgical intervention with diagnostic laparoscopy, lysis of adhesions were described. Informed consent was obtained. Robotic assisted laparoscopic approach was ana laura cribed. Benefits and risks of the procedure including but not limited to bleeding, infection, injury to the small bowel was described. Informed consent was obtained. DESCRIPTION OF PROCEDURE: Patient was brought to the operating room, placed in supine position. After general induction, the abdomen had been prepped and draped in standard sterile fashion. The robotic da Priti XI system was primed. After a timeout protocol was performed, the patient had been prepped and draped in standard sterile fashion. The robot was docked along the right lateral abdomen. The patient was repositioned in with right side up. Please note prior to docking of the robot; however, a 5 mm 0 degrees laparoscopic trocar entry was performed along the left upper quadrant. The abdomen was insufflated to 15 mmHg pressure which she tolerated well. Diagnostic laparoscopy was performed. Next, three 8 mm robotic ports were placed along the right lateral abdominal wall. The camera 8-mm port was maintained along mid-lateral abdomen. Please note that the ports were placed at least 10 to 15 cm away from the target anatomy. Instruments including graspers and vessel sealer were interchanged by the mile erickson. I had sat at the console. No incisional hernia was identified. The rest of the abdomen was unremarkable for small bowel pathology. The small bowel from the ortega limb to distal ileum was inspected. The small bowel was investigated from the terminal ileum to the ligament of Treitz to the jejunojejunostomy. Abnormal adhesions to the jejunojejunostomy was identified and divided using scissors for lysis of adhesions from the abdominal wall at the left upper quadrant. No herniation of bowel was found along the William defect or jejunojejunostomy mesenteric defect which were both completely scarred. The terminal ileum and cecum was unremarkable. The small bowel was viable.The robot was undocked. All pneumoperitoneum instruments were evacuated from the abdominal cavity. The incisions were reapproximated using 4-0 Monocryl in an interrupted subcuticular fashion. Please note along the trocar sites, local anesthetic was placed as a field block prior to insertion of all instruments. Exofin was applied to the skin. At the end of the procedure needle, sponge, and instrument count had been verified correct by the thermoplastic technician. The patient was transferred to postanesthesia care unit in stable condition. Plan - Discharge Summary Discharge Rx Participant: Yes New Discharge Prescriptions: New Simethicone [Gas-X] 125 mg PO AC-TID PRN #20 capsule PRN Reason: Pain Acetaminophen Tab [Tylenol Tab] 1,000 mg PO Q6HR PRN #30 tablet PRN Reason: Pain Continue Multivitamin [Multivitamins Adult Gummies] 1 tab PO DAILY Vitamin C/Biotin [Hair, Skin and Nails] 1 tab PO DAILY Iron 64 mg PO BID Levothyroxine Sodium 25 mcg PO DAILY #30 tablet Zinc Gluconate [Zinc] 50 mg PO DAILY@1200 #60 tablet Ergocalciferol [Vitamin D2 (1250 Mcg = 76905 Iu)] 1,250 mcg PO SUWE Discharge Medication List Multivitamin [Multivitamins Adult Gummies] 1 tab PO DAILY 09/16/16 [History] Vitamin C/Biotin [Hair, Skin and Nails] 1 tab PO DAILY 08/24/17 [History] Iron 64 mg PO BID 09/12/20 [History] Levothyroxine Sodium 25 mcg PO DAILY #30 tablet 10/01/20 [Rx] Zinc Gluconate [Zinc] 50 mg PO DAILY@1200 #60 tablet 10/01/20 [Rx] Ergocalciferol [Vitamin D2 (1250 Mcg = 64312 Iu)] 1,250 mcg PO SUWE 11/06/20 [History] Acetaminophen Tab [Tylenol Tab] 1,000 mg PO Q6HR PRN #30 tablet 11/10/20 [Rx] Simethicone [Gas-X] 125 mg PO AC-TID PRN #20 capsule 11/10/20 [Rx] [facility]ment[facility] [place] [facility] Patient Instructions/Handouts: Lysis of Abdominal Adhesions (DC) Activity/Diet/Wound Care/Special Instructions: No lifting over 10 pounds in 2 weeks until NOVEMBER 24October shower. No bath tub soaks for 2 weeks until NOVEMBER 24 Diet as tolerated. Use Tylenol scheduled for the next 24-48 hours for best pain relief. Use ice along incisions for today to prevent swelling. Discharge Disposition: HOME SELF-CARE
[2020-11-10 12:19] VITALS: RESP 16
[2020-11-10] MEDS: HYDROmorphone 0.5 MG/0.5 ML SYRINGE IVP PRN ×2 (12:47→12:54)
[2020-11-10 14:23] VITALS: BP 132/85; PULSE 75
== END 2020-11-10 14:56 | disposition home or self-care (01) ==
LOC: OR 08:57
PROVIDERS: ATTEND Surgery Plastic and Reconstructive Surgery
DX: K66.0 Peritoneal adhesions (postprocedural) (postinfection) (principal); F32.9 Major depressive disorder, single episode, unspecified; E03.9 Hypothyroidism, unspecified; E66.01 Morbid (severe) obesity due to excess calories; Z68.38 Body mass index [BMI] 38.0-38.9, adult; Z98.84 Bariatric surgery status; Z88.5 Allergy status to narcotic agent; Z91.048 Other nonmedicinal substance allergy status
CPT/HCPCS: 49329; S2900; 64999; 76942

== ENCOUNTER → 2020-11-12 | Outpatient (CLI) | payer BC ==
--- NOTE | 2020-11-12 16:24 | P.PN ---
Subjective Progress Note Date: 11/12/20 DATE OF SERVICE: 11/12/2020 CHIEF COMPLAINT: Status post gastric bypass HISTORY OF PRESENT ILLNESS: Marci Singh is a 45-year-old female is status post gastric bypass 08/16/2016 and is 4 years out from her gastric bypass. She is now status post lysis of adhesions 11/10/20. She is POD 2. She reports feeling better. She has neck pain. She reports worsening weight gain and not tracking her meals. She is looking for management of her weight gain. At her height of 5 feet 4 inches, her ideal body weight is 144 pounds. Her highest weight was 278 pounds. She comes in weighing 2323 pounds from 224 pounds, 1 month ago. She has gained 8 pounds in 1 month. She has lost 46 pounds lifetime. Lifetime percent excess weight loss is 35 %. Her body mass index is reduced from 47.8 down to 39.8 PHYSICAL EXAM: VITAL SIGNS: 5 foot 4, 232 pounds. Body mass index 39.8 Vital Signs Temp 98 F 11/12/20 16:26 Pulse 73 11/12/20 16:26 Resp BP 137/93 11/12/20 16:26 Pulse Ox ABDOMEN: Incisions are clean, dry and intact. No infection. MUSCULOSKELETAL: No clubbing, cyanosis, or edema. CARDIOVASCULAR: Regular rate and rhythm. 2+ radial pulses. GENERAL: Well-developed female in no acute distress. HEENT: No scleral icterus. Extraocular movements grossly intact. Moist buccal mucosa. Hears conversational speech. NECK: Supple without lymphadenopathy. CHEST: Nonlabored respirations. Equal bilateral excursions. NEURO: No focal or lateralizing signs. Cranial nerves II through XII grossly within normal limits. PSYCH: Alert and oriented to person, place, and time. SKIN: Well perfused. Good skin turgor. ASSESSMENT: 1. Morbid obesity due to excess calories. 2. Body mass index reduced from 47.8 down to 39.8 3. Status post gastric bypass. 4. Status post panniculectomy 5. Depressive disorder 6. Dietary surveillance and counseling 7. Obstructive sleep apnea. 8. Hypertensive heart disease 9. Osteoarthritis of the bilateral hips. 10. Kidney stones. 11. Iron deficiency 12. Hypertriglyceridemia 13. Vitamin D deficiency 14. Zinc deficiency 15. Thyroid dysfunction 16. Peritoneal adhesions 17. Weight regain following bariatric procedure PLAN: 1. For her neck pain, recommend use warm compress along the body and neck. 2. Recommend food diary journal for weight gain. 3. Recommend full bariatric metabolic panel and labs for thyroid.
[2020-11-12 17:12] VITALS: BP 137/93; PULSE 73; TEMP 98; BMI 39.8
== END ==
LOC: BARWHC3 15:36
PROVIDERS: ATTEND Surgery Plastic and Reconstructive Surgery
DX: E66.01 Morbid (severe) obesity due to excess calories (principal); E55.9 Vitamin D deficiency, unspecified; E78.1 Pure hyperglyceridemia; F32.9 Major depressive disorder, single episode, unspecified; G47.33 Obstructive sleep apnea (adult) (pediatric); I11.9 Hypertensive heart disease without heart failure; M16.0 Bilateral primary osteoarthritis of hip; N20.0 Calculus of kidney; E60 Dietary zinc deficiency; K66.0 Peritoneal adhesions (postprocedural) (postinfection); E07.9 Disorder of thyroid, unspecified; E61.1 Iron deficiency; Z91.040 Latex allergy status; Z98.84 Bariatric surgery status; Z71.3 Dietary counseling and surveillance; Z68.39 Body mass index [BMI] 39.0-39.9, adult; Z98.890 Other specified postprocedural states; Z88.5 Allergy status to narcotic agent; Z87.891 Personal history of nicotine dependence
CPT/HCPCS: 99211

== ENCOUNTER → 2020-12-18 | Outpatient (CLI) | payer OTHER ==
--- NOTE | 2020-12-18 10:54 | US ---
EXAMINATION TYPE: US venous doppler duplex LE RT DATE OF EXAM: 12/18/2020 10:32 AM COMPARISON: US 2019 CLINICAL HISTORY: I80.9 Phlebitis/thrombophlebitis R leg. Right calf pain SIDE PERFORMED: Right TECHNIQUE: The lower extremity deep venous system is examined utilizing real time linear array sonog mikey with graded compression, doppler sonography and color-flow sonography. VESSELS IMAGED: Common Femoral Vein Deep Femoral Vein Greater Saphenous Vein * Femoral Vein Popliteal Vein Proximal Calf Veins (* superficial vessels) Right Leg: Appears negative for DVT IMPRESSION: No sonographic evidence for deep vein thrombosis of the right lower extremity.
== END | disposition home or self-care (01) ==
LOC: RADUSWWP 10:13
PROVIDERS: ATTEND Orthopaedic Surgery
DX: I80.9 Phlebitis and thrombophlebitis of unspecified site (principal)

== ENCOUNTER → 2022-01-25 | Outpatient (CLI) | payer OTHER ==
--- NOTE | 2022-01-26 08:46 | MM ---
Reason for Exam: Screening (asymptomatic). Last mammogram was performed 4 year(s) and 7 month(s) ago. Patient History: Menarche at age 12. First Full-Term at age 19. Hysterectomy at age 34. 08/31/2017, US discontinued breast bx RT on the right side. Risk Values: Staci 5 year model risk: 0.6%. NCI Lifetime model risk: 6.9%. Prior Study Comparison: 07/27/2017 Bilateral Screening Mammogram, [facility]. 07/27/2017 Right Diagnostic Mammogram, [facility]. Tissue Density: There are scattered fibroglandular densities. Findings: Analyzed By CAD. There is no suspicious group of microcalcifications or new suspicious mass in either breast. Overall Assessment: Negative, BI-RAD 1 Management: Screening Mammogram of both breasts in 1 year. A clinical breast exam by your physician is recommended on an annual basis and results should be correlated with mammographic findings. Electronically signed and approved by: Darnell Hedrick DO
== END | disposition home or self-care (01) ==
LOC: RADMAMWWP 01-22 16:04
PROVIDERS: ATTEND Obstetrics & Gynecology
DX: Z12.31 Encounter for screening mammogram for malignant neoplasm of breast (principal)
CPT/HCPCS: 77063; 77067

== ENCOUNTER → 2022-02-24 | Outpatient (CLI) | payer OTHER ==
[2022-02-24 14:59] LABS: Basophils # (A) 0.06 X 10*3/uL (0.00-0.10); Basophils % (A) 0.7 %; Eosinophils # (A) 0.35 X 10*3/uL (0.04-0.35); Eosinophils % (A) 4.2 %; HCT 44.8 % (37.2-46.3); HGB 14.7 g/dL (12.0-15.0); Immature Grans, Automated 0.7 %; Lymphocytes # (A) 1.32 X 10*3/uL (0.90-5.00); Lymphocytes % (A) 15.8 %; MCH 28.2 pg (27.0-32.0); MCHC 32.8 g/dL (32.0-37.0); MCV 85.8 fL (80.0-97.0); Mean Platelet Volume 10.8 fL (9.5-12.2); Monocytes # (A) 0.64 X 10*3/uL (0.20-1.00); Monocytes % (A) 7.7 %; NRBC Per 100 WBC 0 /100 WBCS (0.0-0.0); Neutrophils # (A) 5.91 X 10*3/uL (1.80-7.70); Neutrophils % (A) 70.9 %; Platelet Count 274 X 10*3/uL (140-440); RBC 5.22 X 10*6/uL (4.10-5.20); RDW 13.5 % (11.5-14.5); WBC 8.34 X 10*3/uL (4.50-10.00)
[2022-02-24 18:06] LABS: % Iron Saturation 12.78 (12.00-45.00); ALT 26 U/L (8-44); AST 27 U/L (13-35); African American GFR (CKD) 121.3 (60.0-200.0); Albumin 4.3 g/dL (3.8-4.9); Albumin/Globulin Ratio 1.77 (1.60-3.17); Alkaline Phosphatase 113 U/L (41-126); BUN/Creat Ratio 17.23 Ratio (12.00-20.00); Blood Urea Nitrogen 11.8 mg/dL (9.0-27.0); Calcium 9.3 mg/dL (8.7-10.3); Carbon Dioxide 24.9 mmol/L (20.0-27.5); Chloride 103 mmol/L (96-109); Globulin 2.4 g/dL (1.6-3.3); Glucose 90 mg/dL (70-110); Iron 47 ug/dL (50-170); Non-African American GFR(CKD) 104.7 (60.0-200.0); Potassium 4.2 mmol/L (3.5-5.5); Sodium 139 mmol/L (135-145); Total Iron Binding Capacity 371 ug/dL (228-460); Total Protein 6.7 g/dL (6.2-8.2)
[2022-02-25 13:51] LABS: Zinc, Serum 80 ug/dL (60-130)
[2022-02-26 08:07] LABS: Vitamin A 48 ug/dL (38-106); Vitamin E (Alpha Tocopherol) 1398 ug/dL (500-1800)
== END | disposition home or self-care (01) ==
LOC: LABWHC1 09:45
PROVIDERS: ATTEND Family Medicine
DX: Z00.00 Encounter for general adult medical examination without abnormal findings (principal); Z98.84 Bariatric surgery status
CPT/HCPCS: 36415; 80053; 80061; 82306; 82607; 82728; 82746; 83036; 83540; 83550; 83970; 84425; 84443; 84446; 84590; 84630; 85025

== ENCOUNTER 2022-06-15 10:49 | Day surgery (SDC) | payer OTHER ==
[2022-06-14 09:12] VITALS: BMI 33.6
[~2022-06-15 10:49] MED LIST changes: -ACETAMINOPHEN TAB 500 MG TAB PO PRN; -DEXAMETHASONE SOD PHOSPHATE 4 MG/ML 1 ML VIAL IV ONE; -GABAPENTIN 300 MG CAP PO PRN; -HEPARIN SODIUM,PORCINE/PF 5,000 UNIT/0.5 ML SYRINGE SQ PRN; +LIDOCAINE 1% (10MG/ML) FOR IV START INTRADERMA PRN; -MELOXICAM 7.5 MG TAB PO PRN; -MIDAZOLAM 2 MG/2 ML VIAL IV PRN; +ONDANSETRON 4 MG/2 ML VIAL IVP PRN; -SCOPOLAMINE 1.5MG/72HR PATCH TRANSDERM PRN
[2022-06-15 11:54] VITALS: TEMP 98.3
[2022-06-15 12:08] LABS: Glucose,Whole Blood 84 mg/dL (70-110)
[2022-06-15] MEDS ORDERED: LIDOCAINE 2% INJ 20 MG/ML (2 ML VIAL) ONE (12:44)
[2022-06-15] MEDS ORDERED: PROPOFOL 10 MG/ML 20 ML VIAL IV ONE (12:44)
--- NOTE | 2022-06-15 13:01 | P.PCN ---
Date of Procedure: 06/15/22 Procedure(s) Performed: BRIEF HISTORY: Patient is a 46-year-old pleasant female scheduled for an elective colonoscopy as a part of screening for colon cancer/positive cologuard PROCEDURE PERFORMED: Colonoscopy with snare polypectomy. PREOPERATIVE DIAGNOSIS: Screening for colon cancer/positive cologuard. IV sedation per Anesthesia. PROCEDURE: After informed consent was obtained, the patient, was brought into the endoscopy unit. IV sedation was administered by Anesthesia under continuous monitoring. Digital rectal examination was normal. Initially the Olympus CF-160 flexible video colonoscope was then inserted in the rectum, gradually advanced into the cecum without any difficulty. Careful examination was performed as the scope was gradually being withdrawn. Ileocecal valve and the appendiceal orifice were visualized and appeared normal. Prep was excellent. Mucosa of the cecum, ascending colon, transverse colon appeared normal. The descending colon there was a 7 mm polyp removed by snare polypectomy. In the sigmoid: There was a 5 mm polyp removed by snare polypectomy. Rest of the descending colon, sigmoid colon, and rectum appeared normal. In the rectum there was a 4 mm polyp removed by snare polypectomy. Retroflexion was performed in the rectum and no lesions were seen. The patient tolerated the procedure well. IMPRESSION: 7 mm descending colon polyp status post polypectomy 5 mm sigmoid: Polyp status post polypectomy 4 mm rectal polyp status post snare polypectomy RECOMMENDATIONS: Findings of this examination were discussed with the patient as well as her family. She was advised to follow with the biopsy results. If the biopsy results adenoma she can have a repeat colonoscopy in 3 years..
[2022-06-15 13:06] VITALS: RESP 16
[2022-06-15 13:19] VITALS: BP 134/90; PULSE 83
[2022-06-15 13:39] LABS: Glucose,Whole Blood 84 mg/dL (70-110)
[2022-06-15 13:39] LABS: Glucose,Whole Blood 76 mg/dL (70-110)
== END 2022-06-15 13:48 | disposition home or self-care (01) ==
LOC: ORWHC2ENDO 10:49
PROVIDERS: ATTEND Internal Medicine Gastroenterology
DX: D12.4 Benign neoplasm of descending colon (principal); K62.1 Rectal polyp; I10 Essential (primary) hypertension; E78.5 Hyperlipidemia, unspecified; Z88.5 Allergy status to narcotic agent; Z86.718 Personal history of other venous thrombosis and embolism; G47.33 Obstructive sleep apnea (adult) (pediatric); Z99.89 Dependence on other enabling machines and devices; Z87.891 Personal history of nicotine dependence; E21.0 Primary hyperparathyroidism; E03.9 Hypothyroidism, unspecified; Z98.84 Bariatric surgery status; Z98.890 Other specified postprocedural states; Z90.79 Acquired absence of other genital organ(s); Z79.84 Long term (current) use of oral hypoglycemic drugs; Z79.2 Long term (current) use of antibiotics
CPT/HCPCS: 45385; J2704; J2001; 88305

== ENCOUNTER → 2022-07-19 | Outpatient (CLI) | payer OTHER ==
--- NOTE | 2022-07-19 16:01 | NM ---
EXAMINATION TYPE: NM parathyroid w/spect DATE OF EXAM: 07/19/2022 COMPARISON: Ultrasound 08/29/2020 HISTORY: Hyperparathyroidism TECHNIQUE: Following administration of 25.2 mCi Tc99m Sestamibi. Anterior projection images of the neck and ches t were obtained 10 minutes and 3 hours post injection. SPECT images of the neck and chest were obtai dai and reconstructed in three axes. FINDINGS: Thyroid tracer washout: Delayed images demonstrate near-complete tracer washout from the thyroid. Parathyroid uptake: None. The two-hour delayed images do not demonstrate any focal abnormal persisten t uptake in the region of the parathyroid glands to suggest parathyroid adenoma. Normal uptake: There is physiological tracer uptake in the myocardium, liver, salivary glands, and th yroid gland. IMPRESSION: Normal parathyroid imaging study. No evidence for mediastinal uptake to suggest mediastinal parathyro id adenoma
== END | disposition home or self-care (01) ==
LOC: RADNMMAIN 10:45
PROVIDERS: ATTEND Family Medicine
DX: E21.3 Hyperparathyroidism, unspecified (principal)
CPT/HCPCS: 78071; A9500

== ENCOUNTER → 2023-01-27 | Outpatient (CLI) | payer OTHER ==
[2023-01-27 12:18] LABS: Basophils # (A) 0.08 X 10*3/uL (0.00-0.10); Basophils % (A) 0.9 %; Eosinophils # (A) 0.29 X 10*3/uL (0.04-0.35); Eosinophils % (A) 3.4 %; HGB 15.1 d/dL (12.0-15.0); Lymphocytes # (A) 1.16 X 10*3/uL (0.90-5.00); Lymphocytes % (A) 13.5 %; MCH 27.1 pg (27.0-32.0); MCHC 31.5 d/dL (32.0-37.0); MCV 86.2 FL (80.0-97.0); Mean Platelet Volume 11.1 FL (9.5-12.2); Monocytes # (A) 0.57 X 10*3/uL (0.20-1.00); Monocytes % (A) 6.7 %; NRBC Per 100 WBC 0 X 10*3/uL (0.00-0.01); Neutrophils # (A) 6.42 X 10*3/uL (1.80-7.70); Neutrophils % (A) 74.9 %; Platelet Count 295 X 10*3/uL (140-440); RBC 5.57 X 10*6/uL (4.10-5.20); RDW 14.6 % (11.5-14.5); WBC 8.57 X 10*3/uL (4.50-10.00)
[2023-01-27 14:13] LABS: ALT 13 U/L (8-44); AST 18 U/L (13-35); Albumin 4.4 d/dL (3.8-4.9); Alkaline Phosphatase 119 U/L (41-126); BUN/Creat Ratio 17.75 Ratio (12.00-20.00); Blood Urea Nitrogen 14.2 mg/dL (9.0-27.0); Calcium 9.7 mg/dL (8.7-10.3); Carbon Dioxide 26.3 mmol/L (21.6-31.8); Chloride 105 mmol/L (96-109); Chol/HDL Ratio 3.17 Ratio; Globulin 2.1 d/dL (1.6-3.3); Glucose 87 mg/dL (70-110); LDL Cholesterol,Calculated 102.6 mg/dL (0.0-131.0); Potassium 4.7 mmol/L (3.5-5.5); Sodium 142 mmol/L (135-145); Total Bilirubin 1.8 mg/dL (0.3-1.2); Total Protein 6.5 d/dL (6.2-8.2); VLDL Calculation 19.98 mg/dL (5.00-40.00)
--- NOTE | 2023-01-28 08:34 | MM ---
Reason for Exam: Screening (asymptomatic). Last screening mammogram was performed 12 month(s) ago. Patient History: Menarche at age 12. First Full-Term at age 19. Hysterectomy at age 34. 08/31/2017, US discontinued breast bx RT on the right side. 08/13/2022, Bilateral Implants. Risk Values: Staci 5 year model risk: 0.6%. NCI Lifetime model risk: 6.8%. Prior Study Comparison: 07/27/2017 Bilateral Screening Mammogram, [facility]. 07/27/2017 Right Diagnostic Mammogram, [facility]. 01/25/2022 Bilateral MG 3D screening mammo w/cad, [facility]. Tissue Density: There are scattered fibroglandular densities. Findings: Analyzed By CAD. There is no suspicious group of microcalcifications or new suspicious mass in either breast. Bilateral breast prosthesis appear intact. Overall Assessment: Benign, BI-RAD 2 Management: Screening Mammogram of both breasts in 1 year. A clinical breast exam by your physician is recommended on an annual basis and results should be correlated with mammographic findings. Note on Staci scores and lifetime risk: 1. A Staci score greater than 3% is considered moderate risk. If this is the case, consider specialist referral to assess eligibility for a risk reducing agent. If overall lifetime risk for the development of breast cancer is 20% or higher, the patient may qualify for future screening with alternating mammogram and breast MRI. Electronically signed and approved by: Aj Fisher D.O.
== END | disposition home or self-care (01) ==
LOC: RADMAMWWP 07:04
PROVIDERS: ATTEND Family Medicine
DX: Z00.00 Encounter for general adult medical examination without abnormal findings (principal); Z12.31 Encounter for screening mammogram for malignant neoplasm of breast
CPT/HCPCS: 77063; 77067; 80053; 80061; 83036; 84443; 85025

== ENCOUNTER → 2024-02-24 | Outpatient (CLI) | payer OTHER ==
[2024-02-24 16:14] LABS: ALT 18 U/L (8-44); AST 17 U/L (13-35); Albumin 4.3 g/dL (3.8-4.9); Albumin/Globulin Ratio 2.05 Ratio (1.60-3.17); Alkaline Phosphatase 92 U/L (41-126); BUN/Creat Ratio 18.86 Ratio (12.00-20.00); Blood Urea Nitrogen 13.2 mg/dL (9.0-27.0); Calcium 9.7 mg/dL (8.7-10.3); Carbon Dioxide 28.9 mmol/L (21.6-31.8); Chloride 105 mmol/L (96-109); Globulin 2.1 g/dL (1.6-3.3); Glucose 77 mg/dL (70-110); Potassium 4.5 mmol/L (3.5-5.5); Sodium 144 mmol/L (135-145); Total Bilirubin 2.1 mg/dL (0.3-1.2); Total Protein 6.4 g/dL (6.2-8.2)
[2024-02-24 16:28] LABS: Basophils # (A) 0.06 X 10*3/uL (0.00-0.10); Basophils % (A) 0.9 %; Eosinophils # (A) 0.31 X 10*3/uL (0.04-0.35); Eosinophils % (A) 4.5 %; HCT 44.7 % (37.2-46.3); HGB 14.4 g/dL (12.0-15.0); Lymphocytes % (A) 18.9 %; MCH 28.7 pg (27.0-32.0); MCHC 32.2 g/dL (32.0-37.0); Mean Platelet Volume 11.2 FL (9.5-12.2); Monocytes # (A) 0.48 X 10*3/uL (0.20-1.00); NRBC Per 100 WBC 0 X 10*3/uL (0.00-0.01); Neutrophils # (A) 4.69 X 10*3/uL (1.80-7.70); Neutrophils % (A) 68.3 %; Platelet Count 257 X 10*3/uL (140-440); RBC 5.02 X 10*6/uL (4.10-5.20); WBC 6.87 X 10*3/uL (4.50-10.00)
--- NOTE | 2024-02-29 07:30 | MM ---
Reason for Exam: Screening (asymptomatic). Last screening mammogram was performed 12 month(s) ago. Patient History: Menarche at age 12. First Full-Term at age 19. Hysterectomy at age 34. 08/31/2017, US discontinued breast bx RT on the right side. 08/13/2022, Bilateral Implants. Risk Values: Staci 5 year model risk: 0.7%. NCI Lifetime model risk: 6.7%. Prior Study Comparison: 07/27/2017 Right Diagnostic Mammogram, [facility]. 01/25/2022 Bilateral MG 3D screening mammo w/cad, [facility]. 01/27/2023 Bilateral MG 3D screen mammo imp/cad., [facility]. Tissue Density: There are scattered areas of fibroglandular density. Findings: Analyzed By CAD. Bilateral breast implants appear intact. Right breast: There is no suspicious group of microcalcifications or new suspicious mass. Left breast: There is no suspicious group of microcalcifications or new suspicious mass. Overall Assessment: Negative, BI-RAD 1 Management: Screening Mammogram of both breasts in [address] [facility] will attempt to contact patient to return for supplemental views and ultrasound if indicated. Patient should continue monthly self-breast exams. A clinical breast exam by your physician is recommended on an annual basis. This exam should not preclude additional follow-up of suspicious palpable abnormalities. Note on Staci scores and lifetime risk: 1. A Staci score greater than 3% is considered moderate risk. If this is the case, consider specialist referral to assess eligibility for a risk reducing agent. 2. If overall lifetime risk for the development of breast cancer is 20% or higher, the patient may qualify for future screening with alternating mammogram and breast MRI. Electronically signed and approved by: Darnell Hedrick DO
== END | disposition home or self-care (01) ==
LOC: RADMAMWWP 07:58
PROVIDERS: ATTEND Family Medicine
DX: Z12.31 Encounter for screening mammogram for malignant neoplasm of breast (principal); R92.323 Mammographic fibroglandular density, bilateral breasts
CPT/HCPCS: 77063; 77067; 80053; 83036; 84443; 85025